=== PATIENT | male | born 1975 | race Caucasian/White ===

== ENCOUNTER → 2016-08-28 | Outpatient (CLI) | payer OTHER ==
[~2016-08-28] MED LIST: /ESOM40CA OR; BONINE OR; BUPR15TA OR; CIPR25SS OR; DICY10CA2 OR; DUCOSATE OR; FIBER CON OR; FLAG500T OR; HYOS0.1264 OR; LOTEPREDNOL OU; MECL25TA2 OR; MULTLIQ7 OR; NAPR500T81 OR; NEUR100C OR; OMEGA-3 FISH OIL OR; SIMVASTATIN PO; WELLBUTRIN OR; XANA0.5T OR; loperamide OR
== END ==
LOC: M SMT 09:24
PROVIDERS: ATTEND Internal Medicine Endocrinology, Diabetes & Metabolism
DX: E29.1 Testicular hypofunction (principal); E55.9 Vitamin D deficiency, unspecified

== ENCOUNTER → 2016-08-28 | Outpatient (CLI) | payer OTHER | LOC: M SMT 09:21 | PROVIDERS: ATTEND Physician Assistant Medical | DX: E55.9 Vitamin D deficiency, unspecified (principal) ==

== ENCOUNTER → 2016-12-29 | Outpatient (CLI) | payer OTHER ==
--- NOTE | 2017-01-19 00:56 | ECWPNPC ---
PATIENT NAME: ROSHNI PRECIADO : 1975 GENDER: MALE VISIT DATE: 12/29/2016 DISCHARGE DATE: 12/29/16 1156 VISIT LOCKED DATE TIME: PHYSICIAN: LALIT RECIO RESOURCE: LALIT RECIO REASON FOR APPOINTMENT 1. NECK/BACK HISTORY OF PRESENT ILLNESS HISTORY OF PRESENT ILLNESS: THIS IS A 4 WEEK F/U AFTER INITIAL EVALUATION FOR CHRONIC GENERALIZED BODY PAIN.STARTED CYMBALTA 30MG DAILY AT INITIAL VISIT.PATIENT HAD TO STOP DUE TO SIDE EFFECT OF NAUSEA.USING TRAMADOL AND BACLOFEN AND FINDS THESE MEDICATIONS HELPFUL WITHOUT SIDE EFFECTS.RATING PAIN VAS 4/10.DESCRIBES PAIN INTERMITTENT ACHING AND SHARP PAIN.PAIN IS AGGREVATED BY INCREASED ACTIVITY AND RELIEVED SOMEWHAT AT REST. PAIN THE PATIENT DESCRIBES THE PAIN... FALL RISK SCREENING: SCREENING :NO FALLS IN THE PAST YEAR CURRENT MEDICATIONS TAKING ZOMIG ZMT 5 MG TABLET DISPERSIBLE DIRECTED ORALLY TAKING MAGNESIUM OXIDE 400 MG CAPSULE ORALLY DAILY TAKING BACLOFEN 10 MG TABLET 1 TABLET WITH FOOD OR MILK ORALLY THREE TIMES A DAY TAKING ALBUTEROL SULFATE HFA 108 (90 BASE) MCG/ACT AEROSOL SOLUTION 2 PUFFS NEEDED INHALATION EVERY 4 HRS TAKING CARAFATE 1 GM TABLET 1 TABLET ORALLY FOUR TIMES DAILY TAKING CETIRIZINE HCL 10 MG TABLET 1 TABLET ORALLY ONCE A DAY TAKING CLONAZEPAM 0.5 MG TABLET 1 TABLET AT BEDTIME ORALLY ONLY NEEDED TAKING FIBER LAXATIVE 625 MG TABLET 1 TABLET NEEDED ORALLY FOUR TIMES A DAY TAKING DOCUSATE SODIUM 100 MG CAPSULE 1 CAPSULE NEEDED ORALLY ONCE A DAY TAKING EXCEDRIN TENSION HEADACHE 500-65 MG TABLET DIRECTED ORALLY TAKING HYOSCYAMINE SULFATE 0.125 MG TABLET 1 TABLET BEFORE MEALS NEEDED ORALLY EVERY 4 HRS TAKING LIDODERM 5 % PATCH 1 PATCH TO INTACT SKIN REMOVE AFTER 12 HOURS EXTERNALLY ONCE A DAY TAKING LOVAZA 1 GM CAPSULE 2 CAPSULES ORALLY TWICE A DAY TAKING MECLIZINE HCL 25 MG TABLET 1 TABLET NEEDED ORALLY ONCE A DAY TAKING MULTI COMPLETE CAPSULE DIRECTED ORALLY TAKING NEXIUM 40 MG CAPSULE DELAYED RELEASE 1 CAPSULE ORALLY BID TAKING PATANASE 0.6 % SOLUTION 2 SPRAYS NASALLY TWICE A DAY TAKING VITAMIN D3 6000 MG CAPSULE 1 TABLET ORALLY ONCE A DAY TAKING CPAP MACHINE DIRECTED TAKING GENTEAL 0.3 % SOLUTION 1 DROP INTO AFFECTED EYE NEEDED OPHTHALMIC ONCE A DAY TAKING RITALIN 20MG TABLET 1 TABLET ORALLY THREE TIMES DAILY TAKING RIBOFLAVIN 100 MG TABLET 2 TABLET WITH A MEAL ORALLY TWICE DAILY TAKING SIMVASTATIN 20 20MG TABLET DIRECTED ORAL TAKING NEEDLE (DISP) 22G X 1-1/2 MISCELLANEOUS DIRECTED IM DIRECTED Q 2 WEEKS TAKING VITAMIN D (ERGOCALCIFEROL) 05190 UNIT CAPSULE 1 CAPSULE ORALLY TAKING REQUIP 1 MG TABLET 1 TABLET ORALLY TWICE A DAY TAKING METOPROLOL SUCCINATE 50 MG TABLET EXTENDED RELEASE ORALLY DAILY TAKING FENOFIBRATE 54 MG TABLET 1 TABLET WITH A MEAL ORALLY ONCE A DAY TAKING CUSTOM DO NOT USE TRAMADOL 50 MG TABLET ONE TAB ORALLY EVERY 4-6 HOURS PRN PAIN TAKING ROPINIROLE HCL 1 MG TABLET 1 TABLET 1 TO 3 HOURS BEFORE BEDTIME ORALLY ONCE A DAY TAKING ANDROGEL PUMP 12.5 MG/ACT (1%) GEL TRANSDERMAL TAKING PROBIOTIC - CAPSULE ORALLY DAILY TAKING HYDROXYZINE PAMOATE 25 MG CAPSULE 1 CAPSULE NEEDED ORALLY BID TAKING CIALIS 5MG TABLET TAKE 1 TABLET DAILY NOT-TAKING CYMBALTA 30 MG CAPSULE DELAYED RELEASE PARTICLES 1 CAPSULE ORALLY DAILY NOT-TAKING LOPERAMIDE HCL 2 MG CAPSULE 1 CAPSULE ORALLY 8 TIME(S) A DAY NOT-TAKING NITRO-BID 2 % OINTMENT DIRECTED TRANSDERMAL NOT-TAKING HYDROCODONE-ACETAMINOPHEN 5-325 MG TABLET 1 TABLET NEEDED ORALLY EVERY 6 HRS NOT-TAKING MELOXICAM 15 MG TABLET 1 TABLET ORALLY ONCE A DAY NOT-TAKING PAROXETINE HCL 40 MG TABLET 1 TABLET IN THE MORNING ORALLY ONCE A DAY NOT-TAKING TRAMADOL HCL 50 MG TABLET 1 TABLET NEEDED ORALLY EVERY 6 HRS MEDICATION LIST REVIEWED AND RECONCILED WITH THE PATIENT PAST MEDICAL HISTORY PTSD ALLERGIC RHINITIS ANXIETY ASTHMA 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 FLAT FOOT INSOMNIA 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 YES, PT STATES HE STARTED CYMBALTA, HAD N/V/D. PT STOPPED CYMBALTA . CHILLS NO . FEVER NO . INFECTION: DO YOU HAVE NEW INFECTIONS? NO . DO YOU HAVE HISTORY OF MRSA? NO . MUSCULOSKELETAL: ANY NEW PATTERNS OF PAIN OR NUMBNESS? NO . GASTROENTEROLOGY: ANY NEW CHANGE IN BOWEL CONTROL? YES, PT STATES HE HAS IBS, HAD DIARRHEA WHEN TAKING CYMBALTA. . GENITOURINARY: ANY NEW CHANGE IN BLADDER CONTROL? NO . IS THERE A CHANCE YOU COULD BE ? NO . HEMATOLOGY/LYMPH: DO YOU TAKE ANY BLOOD THINNERS? (FOR EXAMPLE- COUMADIN, PLAVIX, AGGRENOX, PLATEL, PRADAXA, OR XARELTO) NO . WHEN WAS YOUR LAST DOSE? DATE: TIME: . NEUROLOGY: HAVE YOU FALLEN IN THE PAST 6 MONTHS? NO . ANY NEW EXTREMITY NUMBNESS OR WEAKNESS? NO . CARDIOLOGY: DO YOU HAVE A PACEMAKER OR DEFIBRILLATOR? NO . RESPIRATORY: HAVE YOU BEEN SICK IN THE PAST WEEK? NO . FEVER NO . FLU LIKE SYMPTOMS? NO . COUGH NO . INTEGUMENTARY: DO YOU HAVE ANY RASHES OR OPEN SORES? NO . ALLERGIC/IMMUNO: ARE YOU ALLERGIC TO SHELLFISH OR IV DYE? NO . ANY NEW ALLERGIES? NO . PSYCHIATRIC: DO YOU HAVE THOUGHTS OF HURTING YOURSELF OR SOMEONE ELSE? NO . ARE YOU ABUSED, NEGLECTED, OR IN AN UNSAFE ENVIRONMENT? NO . ENDOCRINOLOGY: ARE YOU DIABETIC? NO . OTHER: DO YOU NEED ANY PRESCRIPTIONS? YES, TALK ABOUT N/V/D ON CYMBALTA. CONSIDER ANOTHER REGIMEN? . IF YES, PLEASE LIST: ____ . ANY NEW PROBLEMS WITH YOUR MEDICATIONS? NO . WHEN DID YOU LAST EAT? ____ . WHEN DID YOU LAST DRINK? ____ . WHAT DID YOU LAST DRINK? ____ . NAME OF PERSON DRIVING YOU HOME? ____ . DO YOU HAVE ANY OTHER QUESTIONS OR CONCERNS NO . REVIEWED BY: PROVIDER: LALIT HENDRICKS . VITAL SIGNS WT 200 LBS, HT 5'5'', BMI 33.28 INDEX, BP 117/79 MM HG, HR 80 /MIN, RR 16 /MIN, TEMP 97.6 F, OXYGEN SAT % 97%, SAFE IN ENV? (Y/N) Y, NA INITIALS LA 11:24, REVIEWED BY: EM. EXAMINATION GENERAL EXAMINATION: HEENT:HEAD:, NORMOCEPHALIC, EYES:, EYES NORMAL, NOSE:, NOSE CLEAR, THROAT: NORMAL. LUNGS:LUNG SOUNDS ARE CLEAR. HEART:HEART RATE REGULAR. ABDOMEN:SOFT AND NOT TENDER, NON-DISTENDED. MUSCULOSKELETAL:*. LUMBAR SACRAL SPINEMUSCLE STRENGTH TESTING 5/5 BILATERAL, PALPATION: NEGATIVE FOR PAIN OVER L/S SPINE. NEGATIVE FOR PAIN OVER L/S PARSPINALS. THORACIC SPINENEGATIVE FOR PAIN WITH PALPATION OF THORACIC SPINE. NEGATIVE FOR PAIN WITH PALPATION OF THORACIC PARASPINAL. CERVICALNEGATIVE FOR PAIN WITH PALPATION OF CERVICAL SPINE. NEGATIVE FOR PAIN WITH PALPATION OF CERVICAL PARASPINALS. NEGATIVE FOR PAIN WITH PALPATION OF TRAPEZIUS BILAT. SKIN:NORMAL, NO RASH. NEUROLOGIC EXAM:ALERT AND ORIENTED X 3, DTRS 1-2+ IN ALL 4 EXTREMITIES, DENIES UPPER EXTREMETIES SENSORY LOSS, DENIES LOWER EXTREMETIES SENSORY LOSS. DIAGNOSTIC: . ASSESSMENTS ARTHROPATHY - M12.9 (PRIMARY) MYALGIA - M79.1 CERVICALGIA - M54.2 TREATMENT ARTHROPATHY REFILL TRAMADOL HCL TABLET, 50 MG, 1 TABLET NEEDED, ORALLY, Q8H PRN MDD3, 30 DAY(S), 90, REFILLS 2 PROCEDURE CODES FA211 ESTABILISHED PATIENT [facility] CHARGE DISPOSITION & COMMUNICATION FOLLOW UP 6 WEEKS ELECTRONICALLY SIGNED BY RUTHIE MEREDITH ON 01/18/2017 AT 08:48 AM EDT DISCLAIMER : THIS IS A VISIT SUMMARY EXTRACTED FROM THE [employer] CHART. IT IS NOT A COPY OF THE [employer] PROGRESS NOTE. DAYANA
== END ==
LOC: M PAIN 10:40
PROVIDERS: ATTEND Nurse Practitioner Family
DX: M12.9 Arthropathy, unspecified (principal); M79.1 Myalgia; M54.2 Cervicalgia; G89.29 Other chronic pain; Z79.899 Other long term (current) drug therapy; Z91.030 Bee allergy status

== ENCOUNTER → 2017-03-07 | Outpatient (CLI) | payer OTHER | LOC: M SMT 09:04 | PROVIDERS: ATTEND Internal Medicine Endocrinology, Diabetes & Metabolism | DX: E29.1 Testicular hypofunction (principal) ==

== ENCOUNTER → 2017-03-07 | Outpatient (CLI) | payer OTHER | LOC: M SMT 09:06 | PROVIDERS: ATTEND Physician Assistant Medical | DX: E55.9 Vitamin D deficiency, unspecified (principal) ==

== ENCOUNTER → 2017-04-30 | Outpatient (CLI) | payer OTHER ==
--- NOTE | 2017-04-30 23:49 | ECWPNPC ---
PATIENT NAME: ROSHNI PRECIADO : 1975 GENDER: MALE VISIT DATE: 04/30/2017 DISCHARGE DATE: 04/30/17 1058 VISIT LOCKED DATE TIME: PHYSICIAN: LALIT RECIO RESOURCE: LALIT RECIO REASON FOR APPOINTMENT 1. MEDS HISTORY OF PRESENT ILLNESS HISTORY OF PRESENT ILLNESS: THIS IS A 4 WEEK F/U AFTER INITIAL EVALUATION FOR CHRONIC GENERALIZED BODY PAIN.STARTED CYMBALTA 30MG DAILY AT INITIAL VISIT.PATIENT HAD TO STOP DUE TO SIDE EFFECT OF NAUSEA.USING TRAMADOL AND BACLOFEN AND FINDS THESE MEDICATIONS HELPFUL WITHOUT SIDE EFFECTS.RATING PAIN VAS 3/10.DESCRIBES PAIN INTERMITTENT ACHING AND SHARP PAIN.PAIN IS AGGREVATED BY INCREASED ACTIVITY AND RELIEVED SOMEWHAT AT REST. PAIN THE PATIENT DESCRIBES THE PAIN... THE PATIENT DESCRIBES THE PAIN... FALL RISK SCREENING: SCREENING :NO FALLS IN THE PAST YEAR CURRENT MEDICATIONS TAKING ZOMIG ZMT 5 MG TABLET DISPERSIBLE DIRECTED ORALLY TAKING MAGNESIUM OXIDE 400 MG CAPSULE ORALLY DAILY TAKING BACLOFEN 10 MG TABLET 1 TABLET WITH FOOD OR MILK ORALLY THREE TIMES A DAY TAKING ALBUTEROL SULFATE HFA 108 (90 BASE) MCG/ACT AEROSOL SOLUTION 2 PUFFS NEEDED INHALATION EVERY 4 HRS TAKING CARAFATE 1 GM TABLET 1 TABLET ORALLY FOUR TIMES DAILY TAKING CETIRIZINE HCL 10 MG TABLET 1 TABLET ORALLY ONCE A DAY TAKING CLONAZEPAM 0.5 MG TABLET 1 TABLET AT BEDTIME ORALLY ONLY NEEDED TAKING FIBER LAXATIVE 625 MG TABLET 1 TABLET NEEDED ORALLY FOUR TIMES A DAY TAKING DOCUSATE SODIUM 100 MG CAPSULE 1 CAPSULE NEEDED ORALLY ONCE A DAY TAKING EXCEDRIN TENSION HEADACHE 500-65 MG TABLET DIRECTED ORALLY TAKING HYOSCYAMINE SULFATE 0.125 MG TABLET 1 TABLET BEFORE MEALS NEEDED ORALLY EVERY 4 HRS TAKING LIDODERM 5 % PATCH 1 PATCH TO INTACT SKIN REMOVE AFTER 12 HOURS EXTERNALLY ONCE A DAY TAKING LOVAZA 1 GM CAPSULE 2 CAPSULES ORALLY TWICE A DAY TAKING MECLIZINE HCL 25 MG TABLET 1 TABLET NEEDED ORALLY ONCE A DAY TAKING MULTI COMPLETE CAPSULE DIRECTED ORALLY TAKING NEXIUM 40 MG CAPSULE DELAYED RELEASE 1 CAPSULE ORALLY BID TAKING PATANASE 0.6 % SOLUTION 2 SPRAYS NASALLY TWICE A DAY TAKING VITAMIN D3 6000 MG CAPSULE 1 TABLET ORALLY ONCE A DAY TAKING CPAP MACHINE DIRECTED TAKING GENTEAL 0.3 % SOLUTION 1 DROP INTO AFFECTED EYE NEEDED OPHTHALMIC ONCE A DAY TAKING RITALIN 20MG TABLET 1 TABLET ORALLY THREE TIMES DAILY TAKING RIBOFLAVIN 100 MG TABLET 2 TABLET WITH A MEAL ORALLY TWICE DAILY TAKING SIMVASTATIN 20 20MG TABLET DIRECTED ORAL TAKING VITAMIN D (ERGOCALCIFEROL) 55506 UNIT CAPSULE 1 CAPSULE ORALLY TAKING REQUIP 1 MG TABLET 1 TABLET ORALLY TWICE A DAY TAKING METOPROLOL SUCCINATE 50 MG TABLET EXTENDED RELEASE ORALLY DAILY TAKING FENOFIBRATE 54 MG TABLET 1 TABLET WITH A MEAL ORALLY ONCE A DAY TAKING CUSTOM DO NOT USE TRAMADOL 50 MG TABLET ONE TAB ORALLY EVERY 4-6 HOURS PRN PAIN TAKING ROPINIROLE HCL 1 MG TABLET 1 TABLET 1 TO 3 HOURS BEFORE BEDTIME ORALLY ONCE A DAY TAKING ANDROGEL PUMP 12.5 MG/ACT (1%) GEL TRANSDERMAL TAKING PROBIOTIC - CAPSULE ORALLY DAILY TAKING HYDROXYZINE PAMOATE 25 MG CAPSULE 1 CAPSULE NEEDED ORALLY BID TAKING CIALIS 5MG TABLET TAKE 1 TABLET DAILY TAKING TRAMADOL HCL 50 MG TABLET 1 TABLET NEEDED ORALLY Q8H PRN MDD3 DISCONTINUED NEEDLE (DISP) 22G X 1-1/2 MISCELLANEOUS DIRECTED IM DIRECTED Q 2 WEEKS UNKNOWN CYMBALTA 30 MG CAPSULE DELAYED RELEASE PARTICLES 1 CAPSULE ORALLY DAILY UNKNOWN LOPERAMIDE HCL 2 MG CAPSULE 1 CAPSULE ORALLY 8 TIME(S) A DAY UNKNOWN NITRO-BID 2 % OINTMENT DIRECTED TRANSDERMAL UNKNOWN HYDROCODONE-ACETAMINOPHEN 5-325 MG TABLET 1 TABLET NEEDED ORALLY EVERY 6 HRS UNKNOWN MELOXICAM 15 MG TABLET 1 TABLET ORALLY ONCE A DAY UNKNOWN PAROXETINE HCL 40 MG TABLET 1 TABLET IN THE MORNING ORALLY ONCE A DAY MEDICATION LIST REVIEWED AND RECONCILED WITH THE PATIENT PAST MEDICAL HISTORY PTSD ALLERGIC RHINITIS ANXIETY ASTHMA 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 FLAT FOOT INSOMNIA 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 RECREATIONAL DRUG USE DENIES. CAFFEINE 1-2/DAY. SEXUAL HX HAD SEX IN THE LAST 12 MONTHS (VAGINAL, ORAL, OR ANAL)?: YES, WITH: WOMEN ONLY, USE PROTECTION?: YES, HOW OFTEN?: ALL OF THE TIME, HAVE YOU EVER HAD AN STD?: NO. DIET: REGULAR. EXERCISE: DAILY. MARITAL STATUS: . OTHERS AT HOME: VISITATION WITH CHILDREN. DRUZE NO RESTORATIONIST BELIEFS THAT WOULD IMPACT HEALTH CARE. LANGUAGE ISRAELI. LEARNING BARRIERS / SPECIAL NEEDS CHANGE FROM LAST VISIT?NO PAIN CLINIC PFS, CLERGY, PUBLIC HEALTH REFERRALS HAS THE PATIENT BEEN EDUCATED REGARDING HIS/HER PLAN OF CARE?YES HAS THE PATIENT BEEN EDUCATED REGARDING PAIN, THE RISK FOR PAIN, THE IMPORTANCE OF EFFECTIVE PAIN MANAGEMENT, AND THE PAIN ASSESSMENT PROCESS?YES TRAVEL OUTSIDE US: DENIES. DOMESTIC VIOLENCE NONE. HOSPITALIZATION/MAJOR DIAGNOSTIC PROCEDURE CHOLITIS 04/2011 REVIEW OF SYSTEMS REVIEWED BY: PROVIDER: LALIT HENDRICKS . CONSTITUTIONAL: ANY CHANGE IN YOUR MEDICAL CONDITION? NO . CHILLS NO . FEVER NO . INFECTION: DO YOU HAVE NEW INFECTIONS? NO . DO YOU HAVE HISTORY OF MRSA? NO . MUSCULOSKELETAL: ANY NEW PATTERNS OF PAIN OR NUMBNESS? NO . GASTROENTEROLOGY: ANY NEW CHANGE IN BOWEL CONTROL? NO . GENITOURINARY: ANY NEW CHANGE IN BLADDER CONTROL? NO . IS THERE A CHANCE YOU COULD BE ? NO . HEMATOLOGY/LYMPH: DO YOU TAKE ANY BLOOD THINNERS? (FOR EXAMPLE- COUMADIN, PLAVIX, AGGRENOX, PLATEL, PRADAXA, OR XARELTO) NO . WHEN WAS YOUR LAST DOSE? DATE: TIME: . NEUROLOGY: HAVE YOU FALLEN IN THE PAST 6 MONTHS? NO . ANY NEW EXTREMITY NUMBNESS OR WEAKNESS? NO . CARDIOLOGY: DO YOU HAVE A PACEMAKER OR DEFIBRILLATOR? NO . RESPIRATORY: HAVE YOU BEEN SICK IN THE PAST WEEK? NO . FEVER NO . FLU LIKE SYMPTOMS? NO . COUGH NO . INTEGUMENTARY: DO YOU HAVE ANY RASHES OR OPEN SORES? NO . ALLERGIC/IMMUNO: ARE YOU ALLERGIC TO SHELLFISH OR IV DYE? NO . ANY NEW ALLERGIES? NO . PSYCHIATRIC: DO YOU HAVE THOUGHTS OF HURTING YOURSELF OR SOMEONE ELSE? NO . ARE YOU ABUSED, NEGLECTED, OR IN AN UNSAFE ENVIRONMENT? NO . ENDOCRINOLOGY: ARE YOU DIABETIC? NO . OTHER: DO YOU NEED ANY PRESCRIPTIONS? NO . IF YES, PLEASE LIST: ____ . ANY NEW PROBLEMS WITH YOUR MEDICATIONS? NO . WHEN DID YOU LAST EAT? ____ . WHEN DID YOU LAST DRINK? ____ . WHAT DID YOU LAST DRINK? ____ . NAME OF PERSON DRIVING YOU HOME? ____ . DO YOU HAVE ANY OTHER QUESTIONS OR CONCERNS NO . VITAL SIGNS WT 190.2 LBS, HT 5'5'', BMI 31.65 INDEX, BP 123/78 MM HG, HR 58 /MIN, RR 18 /MIN, TEMP 97.2 F, OXYGEN SAT % 99%, NA INITIALS SC 10:32, REVIEWED BY: OSKAR. EXAMINATION GENERAL EXAMINATION: HEENT:HEAD:, NORMOCEPHALIC, EYES:, EYES NORMAL, NOSE:, NOSE CLEAR, THROAT: NORMAL. LUNGS:LUNG SOUNDS ARE CLEAR. HEART:HEART RATE REGULAR. ABDOMEN:SOFT AND NOT TENDER, NON-DISTENDED. MUSCULOSKELETAL:*. LUMBAR SACRAL SPINEMUSCLE STRENGTH TESTING 5/5 BILATERAL, PALPATION: NEGATIVE FOR PAIN OVER L/S SPINE. NEGATIVE FOR PAIN OVER L/S PARSPINALS. THORACIC SPINENEGATIVE FOR PAIN WITH PALPATION OF THORACIC SPINE. NEGATIVE FOR PAIN WITH PALPATION OF THORACIC PARASPINAL. CERVICALNEGATIVE FOR PAIN WITH PALPATION OF CERVICAL SPINE. NEGATIVE FOR PAIN WITH PALPATION OF CERVICAL PARASPINALS. NEGATIVE FOR PAIN WITH PALPATION OF TRAPEZIUS BILAT. SKIN:NORMAL, NO RASH. NEUROLOGIC EXAM:ALERT AND ORIENTED X 3, DTRS 1-2+ IN ALL 4 EXTREMITIES, DENIES UPPER EXTREMETIES SENSORY LOSS, DENIES LOWER EXTREMETIES SENSORY LOSS. DIAGNOSTIC: . ASSESSMENTS ARTHROPATHY - M12.9 (PRIMARY) MYALGIA - M79.1 CERVICALGIA - M54.2 TREATMENT ARTHROPATHY REFILL BACLOFEN TABLET, 10 MG, 1 TABLET WITH FOOD OR MILK, ORALLY, THREE TIMES A DAY, 30 DAY(S), 90, REFILLS 2 REFILL TRAMADOL HCL TABLET, 50 MG, 1 TABLET NEEDED, ORALLY, Q8H PRN MDD3, 30 DAY(S), 90, REFILLS 2 PROCEDURE CODES FA211 ESTABILISHED PATIENT [facility] CHARGE DISPOSITION & COMMUNICATION FOLLOW UP 3 MONTHS ELECTRONICALLY SIGNED BY RUTHIE MEREDITH ON 04/30/2017 AT 11:22 AM EDT DISCLAIMER : THIS IS A VISIT SUMMARY EXTRACTED FROM THE [employer] CHART. IT IS NOT A COPY OF THE [employer] PROGRESS NOTE. DAYANA
== END ==
LOC: M PAIN 10:00
PROVIDERS: ATTEND Nurse Practitioner Family
DX: M12.9 Arthropathy, unspecified (principal); M79.1 Myalgia; M54.2 Cervicalgia; Z79.891 Long term (current) use of opiate analgesic; Z79.899 Other long term (current) drug therapy; Z91.030 Bee allergy status

== ENCOUNTER → 2017-07-31 | Outpatient (CLI) | payer OTHER | LOC: M PAIN 09:00 | DX: G89.29 Other chronic pain (principal); M12.9 Arthropathy, unspecified; M54.2 Cervicalgia; M79.1 Myalgia; F43.10 Post-traumatic stress disorder, unspecified; J45.909 Unspecified asthma, uncomplicated; H81.10 Benign paroxysmal vertigo, unspecified ear; G47.00 Insomnia, unspecified; F32.9 Major depressive disorder, single episode, unspecified; F41.0 Panic disorder [episodic paroxysmal anxiety]; G43.909 Migraine, unspecified, not intractable, without status migrainosus; G47.30 Sleep apnea, unspecified; E78.5 Hyperlipidemia, unspecified; E55.9 Vitamin D deficiency, unspecified; G25.81 Restless legs syndrome; Z91.030 Bee allergy status; Z79.1 Long term (current) use of non-steroidal anti-inflammatories (NSAID); Z79.899 Other long term (current) drug therapy | CPT/HCPCS: G0463 ==

== ENCOUNTER → 2017-10-29 | Outpatient (CLI) | payer OTHER | LOC: M PAIN 10:15 | DX: M12.9 Arthropathy, unspecified (principal); M79.1 Myalgia; M54.2 Cervicalgia; G89.29 Other chronic pain; F43.10 Post-traumatic stress disorder, unspecified; J45.909 Unspecified asthma, uncomplicated; F41.9 Anxiety disorder, unspecified; H81.10 Benign paroxysmal vertigo, unspecified ear; G47.00 Insomnia, unspecified; F32.9 Major depressive disorder, single episode, unspecified; G43.909 Migraine, unspecified, not intractable, without status migrainosus; G47.30 Sleep apnea, unspecified; E78.5 Hyperlipidemia, unspecified; G25.81 Restless legs syndrome; Z79.899 Other long term (current) drug therapy; Z91.030 Bee allergy status; Z87.820 Personal history of traumatic brain injury | CPT/HCPCS: G0463 ==

== ENCOUNTER → 2018-01-04 | Outpatient (CLI) | payer OTHER | LOC: M PAIN 11:30 | DX: M12.9 Arthropathy, unspecified (principal); M79.1 Myalgia; M54.2 Cervicalgia; F43.10 Post-traumatic stress disorder, unspecified; J45.909 Unspecified asthma, uncomplicated; F41.0 Panic disorder [episodic paroxysmal anxiety]; H81.10 Benign paroxysmal vertigo, unspecified ear; G47.00 Insomnia, unspecified; F32.9 Major depressive disorder, single episode, unspecified; G43.909 Migraine, unspecified, not intractable, without status migrainosus; G47.30 Sleep apnea, unspecified; E78.5 Hyperlipidemia, unspecified; E55.9 Vitamin D deficiency, unspecified; G25.81 Restless legs syndrome; Z79.82 Long term (current) use of aspirin; Z79.899 Other long term (current) drug therapy; Z91.030 Bee allergy status; Z87.820 Personal history of traumatic brain injury | CPT/HCPCS: G0463 ==

== ENCOUNTER → 2018-03-06 | Outpatient (CLI) | payer OTHER | LOC: M PAIN 13:00 | DX: M12.9 Arthropathy, unspecified (principal); J45.909 Unspecified asthma, uncomplicated; G43.909 Migraine, unspecified, not intractable, without status migrainosus; K58.9 Irritable bowel syndrome, unspecified; R00.2 Palpitations; G25.81 Restless legs syndrome; Z79.891 Long term (current) use of opiate analgesic; Z79.899 Other long term (current) drug therapy; Z91.030 Bee allergy status | CPT/HCPCS: G0463 ==

== ENCOUNTER → 2018-04-17 | Outpatient (CLI) | payer OTHER | LOC: M PAIN 11:00 | DX: M12.9 Arthropathy, unspecified (principal); M54.2 Cervicalgia; M79.7 Fibromyalgia; F32.9 Major depressive disorder, single episode, unspecified; E78.5 Hyperlipidemia, unspecified; F41.9 Anxiety disorder, unspecified; G25.81 Restless legs syndrome; N52.9 Male erectile dysfunction, unspecified; Z79.82 Long term (current) use of aspirin; Z79.891 Long term (current) use of opiate analgesic; Z79.899 Other long term (current) drug therapy; Z91.030 Bee allergy status | CPT/HCPCS: G0463 ==

== ENCOUNTER → 2018-06-17 | Outpatient (CLI) | payer OTHER | LOC: M PAIN 11:00 | DX: M12.9 Arthropathy, unspecified (principal); M54.2 Cervicalgia; M79.7 Fibromyalgia; F43.10 Post-traumatic stress disorder, unspecified; J45.909 Unspecified asthma, uncomplicated; F41.9 Anxiety disorder, unspecified; H81.10 Benign paroxysmal vertigo, unspecified ear; H04.129 Dry eye syndrome of unspecified lacrimal gland; G47.00 Insomnia, unspecified; M21.40 Flat foot [pes planus] (acquired), unspecified foot; E29.1 Testicular hypofunction; K64.9 Unspecified hemorrhoids; F32.9 Major depressive disorder, single episode, unspecified; M50.30 Other cervical disc degeneration, unspecified cervical region; K58.9 Irritable bowel syndrome, unspecified; F41.0 Panic disorder [episodic paroxysmal anxiety]; G43.909 Migraine, unspecified, not intractable, without status migrainosus; G47.30 Sleep apnea, unspecified; E78.5 Hyperlipidemia, unspecified; E55.9 Vitamin D deficiency, unspecified; G25.81 Restless legs syndrome; N52.9 Male erectile dysfunction, unspecified; Z79.891 Long term (current) use of opiate analgesic; Z79.899 Other long term (current) drug therapy; Z91.030 Bee allergy status | CPT/HCPCS: G0463 ==

== ENCOUNTER → 2018-09-17 | Outpatient (CLI) | payer OTHER ==
[~2018-09-17] MED LIST changes: +BACL10TA2; +CETI10TA PO; +CIAL5TAB; +DICY10CA13; +DOCU100T8 PO; +ESOM40CA35; +FENO54TA2; +HYDR1CAP25 PO; +LIDO5DIS41 TOP; +MAGN400C2 PO; +MECL-86 PO; +META1TAB22; +METH20TA29; +METO1TAB7; +OXYB5TAB10; +PROAAER10; +PROB250C PO; +RANO5TAB; +RIBO400T PO; +ROPI1TAB; +SUCR1SS; +TRAM50TA2; +VITA30004 PO; +VITA50005; +ZOLM5TAB2; +ZONI50CA3
--- NOTE | 2018-10-02 01:53 | ECWPNPC ---
PATIENT NAME: ROSHNI PRECIADO : 1975 GENDER: MALE VISIT DATE: 09/17/2018 DISCHARGE DATE: 09/17/18 1207 VISIT LOCKED DATE TIME: PHYSICIAN: LALIT RECIO RESOURCE: LALIT RECIO REASON FOR APPOINTMENT 1. 3 MONTHS HISTORY OF PRESENT ILLNESS HISTORY OF PRESENT ILLNESS: HERE FOR F/U OF GENERALIZED JOINT PAIN.USING TRAMADOL 50MG UP TO 3 -4 PILLS PER DAY WITH SOME IMPROVEMENT .DENIES SIDE EFFECTS .RATING PAIN VAS 2-5/10.PAIN IS CONTINUOUS AND DESCRIBED ACHING AND SHARP.STATES OCCASIONAL NIGHTTIME AWAKENINGS DUE TO PAIN.PAIN IS AGGREVATED BY INCREASE IN PHYSICAL ACTIVITY. PAIN THE PATIENT DESCRIBES THE PAIN... THE PATIENT DESCRIBES THE PAIN... THE PATIENT DESCRIBES THE PAIN... THE PATIENT DESCRIBES THE PAIN... THE PATIENT DESCRIBES THE PAIN... FALL RISK SCREENING: SCREENING : NO FALLS IN THE PAST YEAR. CURRENT MEDICATIONS TAKING MAGNESIUM OXIDE 400 MG CAPSULE ORALLY DAILY TAKING CARAFATE 1 GM TABLET 1 TABLET ORALLY FOUR TIMES DAILY TAKING CETIRIZINE HCL 10 MG TABLET 1 TABLET ORALLY ONCE A DAY TAKING DOCUSATE SODIUM 100 MG CAPSULE 1 CAPSULE NEEDED ORALLY ONCE A DAY TAKING EXCEDRIN TENSION HEADACHE 500-65 MG TABLET DIRECTED ORALLY TAKING LIDODERM 5 % PATCH 1 PATCH TO INTACT SKIN REMOVE AFTER 12 HOURS EXTERNALLY ONCE A DAY TAKING MECLIZINE HCL 25 MG TABLET 1 TABLET NEEDED ORALLY ONCE A DAY TAKING MULTI COMPLETE CAPSULE DIRECTED ORALLY TAKING NEXIUM 40 MG CAPSULE DELAYED RELEASE 1 CAPSULE ORALLY BID TAKING PATANASE 0.6 % SOLUTION 2 SPRAYS NASALLY TWICE A DAY TAKING VITAMIN D3 3000 UNIT TABLET 1 TABLET ORALLY ONCE A DAY TAKING GENTEAL 0.3 % SOLUTION 1 DROP INTO AFFECTED EYE NEEDED OPHTHALMIC ONCE A DAY TAKING RIBOFLAVIN 100 MG TABLET 2 TABLET WITH A MEAL ORALLY TWICE DAILY TAKING SIMVASTATIN 20 20MG TABLET DIRECTED ORAL DAILY TAKING VITAMIN D (ERGOCALCIFEROL) 44091 UNIT CAPSULE 1 CAPSULE ORALLY WEEKLY TAKING METOPROLOL SUCCINATE 50 MG TABLET EXTENDED RELEASE ORALLY DAILY TAKING FENOFIBRATE 54 MG TABLET 1 TABLET WITH A MEAL ORALLY ONCE A DAY TAKING ROPINIROLE HCL 1 MG TABLET 1 TAB ORALLY BID TAKING PROBIOTIC - CAPSULE ORALLY DAILY TAKING HYDROXYZINE PAMOATE 25 MG CAPSULE 1 CAPSULE NEEDED ORALLY BID TAKING RANEXA 500 MG TABLET EXTENDED RELEASE 12 HOUR 1 TABLET ORALLY TWICE A DAY TAKING DICYCLOMINE HCL 10 MG CAPSULE 1 CAP ORALLY THREE TIMES A DAY TAKING METHYLPHENIDATE HCL 5 MG TABLET 1 TABLET ON AN EMPTY STOMACH ORALLY TWICE A DAY TAKING ZONISAMIDE 25 MG CAPSULE 2 CAPSULES ORALLY TWICE A DAY TAKING FISH OIL 1000 MG CAPSULE 1 CAPSULE ORALLY ONCE A DAY TAKING ZOLMITRIPTAN 5 MG TABLET 1 TABLET NEEDED ONE TIME ORALLY ONCE A DAY TAKING ALBUTEROL SULFATE (2.5 MG/3ML) 0.083% NEBULIZATION SOLUTION 3 ML NEEDED INHALATION THREE TIMES A DAY TAKING CIALIS 5MG TABLET TAKE 1 TABLET DAILY TAKING EPINEPHRINE HCL (ANAPHYLAXIS) 1 MG/ML SOLUTION INJECTION TAKING BACLOFEN 10 MG TABLET 1 TABLET WITH FOOD OR MILK ORALLY THREE TIMES A DAY TAKING ZOMIG ZMT 5 MG TABLET DISPERSIBLE DIRECTED ORALLY TAKING CPAP MACHINE DIRECTED TAKING TRAMADOL HCL 50 MG TABLET 2 ORALLY Q8H PRN MDD6 #100 TAB SHOULD LAST 30 DAYS NOT-TAKING VESICARE 10 MG TABLET 1 TABLET ORALLY ONCE A DAY NOT-TAKING METAXALONE 800 MG TABLET 1 TABLET ORALLY THREE TIMES A DAY NOT-TAKING CLONAZEPAM 0.5 MG TABLET 1 TABLET AT BEDTIME ORALLY ONLY NEEDED NOT-TAKING RITALIN 20MG TABLET 1 TABLET ORALLY TWICE DAILY NOT-TAKING REQUIP 1 MG TABLET 1 1/2 TABLET ORALLY TWICE A DAY NOT-TAKING ANDROGEL PUMP 12.5 MG/ACT (1%) GEL TRANSDERMAL NOT-TAKING EXTRA STRENGTH ACETAMINOPHEN , NOTES: 500 MG TWICE A DAY NOT-TAKING ASPIRIN 81 81 MG TABLET CHEWABLE 1 TABLET ORALLY ONCE A DAY NOT-TAKING MELOXICAM 15 MG TABLET 1 TABLET ORALLY ONCE A DAY NOT-TAKING CEFDINIR 300 MG CAPSULE 1 CAPSULE ORALLY EVERY 12 HRS NOT-TAKING PREDNISONE 10 MG TABLET 1 TABLET ORALLY ONCE A DAY NOT-TAKING ALBUTEROL SULFATE HFA 108 (90 BASE) MCG/ACT AEROSOL SOLUTION 2 PUFFS NEEDED INHALATION EVERY 4 HRS NOT-TAKING FIBER LAXATIVE 625 MG TABLET 1 TABLET NEEDED ORALLY FOUR TIMES A DAY NOT-TAKING HYOSCYAMINE SULFATE 0.125 MG TABLET 1 TABLET BEFORE MEALS NEEDED ORALLY EVERY 4 HRS NOT-TAKING LOVAZA 1 GM CAPSULE 2 CAPSULES ORALLY TWICE A DAY NOT-TAKING CYMBALTA 30 MG CAPSULE DELAYED RELEASE PARTICLES 1 CAPSULE ORALLY DAILY NOT-TAKING LOPERAMIDE HCL 2 MG CAPSULE 1 CAPSULE ORALLY 8 TIME(S) A DAY NOT-TAKING NITRO-BID 2 % OINTMENT DIRECTED TRANSDERMAL NOT-TAKING HYDROCODONE-ACETAMINOPHEN 5-325 MG TABLET 1 TABLET NEEDED ORALLY EVERY 6 HRS NOT-TAKING PAROXETINE HCL 40 MG TABLET 1 TABLET IN THE MORNING ORALLY ONCE A DAY MEDICATION LIST REVIEWED AND RECONCILED WITH THE PATIENT PAST MEDICAL HISTORY PTSD ALLERGIC RHINITIS ANXIETY ASTHMA 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 FLAT FOOT INSOMNIA 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 4 SON(S) , 2 DAUGHTER(S) - HEALTHY. FATHER HAD CYSTS ON KIDNEY'S PRIOR TO . SOCIAL HISTORY GENERAL: TOBACCO USE ARE YOU A:NEVER SMOKER ALCOHOL SCREENING POINTS: 1, INTERPRETATION: NEGATIVE. RECREATIONAL DRUG USE DENIES. CAFFEINE 1-2/DAY. SEXUAL HX HAD SEX IN THE LAST 12 MONTHS (VAGINAL, ORAL, OR ANAL)?: YES, WITH: WOMEN ONLY, USE PROTECTION?: YES, HOW OFTEN?: ALL OF THE TIME, HAVE YOU EVER HAD AN STD?: NO. BUDDHISM NO ORTHODOXY BELIEFS THAT WOULD IMPACT HEALTH CARE. LANGUAGE KHMER. EDUCATION LEVEL OF EDUCATION:NOT FINISHED COLLEGE LEARNING BARRIERS / SPECIAL NEEDS CHANGE FROM LAST VISIT?NO DOMESTIC VIOLENCE NONE. DIET: REGULAR. EXERCISE: DAILY. MARITAL STATUS: . OTHERS AT HOME: VISITATION WITH CHILDREN. PAIN CLINIC PFS, CLERGY, PUBLIC HEALTH REFERRALS HAS THE PATIENT BEEN EDUCATED REGARDING HIS/HER PLAN OF CARE?YES HAS THE PATIENT BEEN EDUCATED REGARDING PAIN, THE RISK FOR PAIN, THE IMPORTANCE OF EFFECTIVE PAIN MANAGEMENT, AND THE PAIN ASSESSMENT PROCESS?YES HOSPITALIZATION/MAJOR DIAGNOSTIC PROCEDURE CHOLITIS 04/2011 REVIEW OF SYSTEMS REVIEWED BY: PROVIDER: LALIT HENDRICKS . CONSTITUTIONAL: ANY CHANGE IN YOUR MEDICAL CONDITION? NO . CHILLS NO . FEVER NO . INFECTION: DO YOU HAVE NEW INFECTIONS? NO . DO YOU HAVE HISTORY OF MRSA? NO . MUSCULOSKELETAL: ANY NEW PATTERNS OF PAIN OR NUMBNESS? NO . GASTROENTEROLOGY: ANY NEW CHANGE IN BOWEL CONTROL? NO . GENITOURINARY: ANY NEW CHANGE IN BLADDER CONTROL? NO . IS THERE A CHANCE YOU COULD BE ? NO . HEMATOLOGY/LYMPH: DO YOU TAKE ANY BLOOD THINNERS? (FOR EXAMPLE- COUMADIN, PLAVIX, AGGRENOX, PLATEL, PRADAXA, OR XARELTO) NO . WHEN WAS YOUR LAST DOSE? DATE: TIME: . NEUROLOGY: HAVE YOU FALLEN IN THE PAST 12 MONTHS? NO . ANY NEW EXTREMITY NUMBNESS OR WEAKNESS? NO . CARDIOLOGY: DO YOU HAVE A PACEMAKER OR DEFIBRILLATOR? NO . RESPIRATORY: HAVE YOU BEEN SICK IN THE PAST WEEK? NO . FEVER NO . FLU LIKE SYMPTOMS? NO . COUGH NO . INTEGUMENTARY: DO YOU HAVE ANY RASHES OR OPEN SORES? NO . ALLERGIC/IMMUNO: ARE YOU ALLERGIC TO IV DYE? NO . ANY NEW ALLERGIES? NO . PSYCHIATRIC: DO YOU HAVE THOUGHTS OF HURTING YOURSELF OR SOMEONE ELSE? NO . ARE YOU ABUSED, NEGLECTED, OR IN AN UNSAFE ENVIRONMENT? NO . ENDOCRINOLOGY: ARE YOU DIABETIC? NO . OTHER: DO YOU NEED ANY PRESCRIPTIONS? YES, TRAMADOL . IF YES, PLEASE LIST: ____ . ANY NEW PROBLEMS WITH YOUR MEDICATIONS? NO . WHEN DID YOU LAST EAT? ____ . WHEN DID YOU LAST DRINK? ____ . WHAT DID YOU LAST DRINK? ____ . NAME OF PERSON DRIVING YOU HOME? ____ . DO YOU HAVE ANY OTHER QUESTIONS OR CONCERNS NO . VITAL SIGNS WT 205 LBS, HT 5'5'', BMI 34.11 INDEX, BP 113/74 MM HG, HR 60 /MIN, RR 16 /MIN, TEMP 98.0 F, OXYGEN SAT % 96, REVIEWED BY: EM. EXAMINATION GENERAL EXAMINATION: GENERAL APPEARANCE:NO DISTRESS . PSYCHAFFECT NORMAL . LUNGS:LUNG VILLANUEVA ARE CLEAR TO AUSCULTATION BILATERALLY. GOOD MOVEMENT OF AIR . HEART:S1, S2 IN A REGULAR RATE AND RHYTHM. NO SIGNIFICANT MURMURS, RUBS OR GALLOPS NOTED . MUSCULOSKELETAL:MUSCLE STRENGTH TESTING 5/5 BILATERAL UPPER/LOWER EXTREMITIES. NEUROLOGIC EXAM:NORMAL ,STEADY GAIT. ASSESSMENTS ARTHROPATHY - M12.9 (PRIMARY) CERVICALGIA - M54.2 FIBROMYALGIA - M79.7 TREATMENT ARTHROPATHY CONTINUE DOCUSATE SODIUM CAPSULE, 100 MG, 1 CAPSULE NEEDED, ORALLY, ONCE A DAY CONTINUE TRAMADOL HCL TABLET, 50 MG, 2, ORALLY, Q8H PRN MDD6 #100 TAB SHOULD LAST 30 DAYS, 30 DAY(S), 100, REFILLS 2 PROCEDURE CODES FA211 ESTABILISHED PATIENT [facility] FAC[facility] CHARGE DISPOSITION & COMMUNICATION FOLLOW UP 3 MONTHS ELECTRONICALLY SIGNED BY RUTHIE JOHNSON ON 09/30/2018 AT 01:03 PM EST DISCLAIMER : THIS IS A VISIT SUMMARY EXTRACTED FROM THE [employer] CHART. IT IS NOT A COPY OF THE [employer] PROGRESS NOTE. DAYANA
== END ==
LOC: M PAIN 11:00
PROVIDERS: ATTEND Nurse Practitioner Family
DX: M12.9 Arthropathy, unspecified (principal); M54.2 Cervicalgia; M79.7 Fibromyalgia; F43.10 Post-traumatic stress disorder, unspecified; J45.909 Unspecified asthma, uncomplicated; G47.00 Insomnia, unspecified; H81.10 Benign paroxysmal vertigo, unspecified ear; H04.129 Dry eye syndrome of unspecified lacrimal gland; E29.1 Testicular hypofunction; N40.0 Benign prostatic hyperplasia without lower urinary tract symptoms; F32.9 Major depressive disorder, single episode, unspecified; K58.9 Irritable bowel syndrome, unspecified; R00.2 Palpitations; F41.0 Panic disorder [episodic paroxysmal anxiety]; G43.909 Migraine, unspecified, not intractable, without status migrainosus; G47.30 Sleep apnea, unspecified; E78.5 Hyperlipidemia, unspecified; E55.9 Vitamin D deficiency, unspecified; G25.81 Restless legs syndrome; N52.9 Male erectile dysfunction, unspecified; Z79.891 Long term (current) use of opiate analgesic; Z79.899 Other long term (current) drug therapy; Z91.030 Bee allergy status

== ENCOUNTER 2018-09-24 12:38 | Emergency (ER) | payer OTHER ==
[~2018-09-24] VITALS: Ht 165.1 cm; Wt 90.9 kg
[~2018-09-24 12:38] MED LIST changes: -BACL10TA2; -CETI10TA PO; -CIAL5TAB; -DICY10CA13; -DOCU100T8 PO; -ESOM40CA35; -FENO54TA2; -HYDR1CAP25 PO; -LIDO5DIS41 TOP; -MAGN400C2 PO; -MECL-86 PO; -META1TAB22; -METH20TA29; -METO1TAB7; -OXYB5TAB10; -PROAAER10; -PROB250C PO; -RANO5TAB; -RIBO400T PO; -ROPI1TAB; -SUCR1SS; -TRAM50TA2; -VITA30004 PO; -VITA50005; -ZOLM5TAB2; -ZONI50CA3
[2018-09-24] MEDS ORDERED: HYDR1CAP25 PO (12:58)
[2018-09-24] MEDS ORDERED: DOCU100T8 PO (12:58)
[2018-09-24] MEDS ORDERED: METH20TA29 (12:58)
[2018-09-24] MEDS ORDERED: LIDO5DIS41 TOP (12:58)
[2018-09-24] MEDS ORDERED: MECL-86 PO (12:58)
[2018-09-24] MEDS ORDERED: FENO54TA2 (12:58)
[2018-09-24] MEDS ORDERED: PROB250C PO (12:58)
[2018-09-24] MEDS ORDERED: RIBO400T PO (12:58)
[2018-09-24] MEDS ORDERED: TRAM50TA2 (12:58)
[2018-09-24] MEDS ORDERED: OXYB5TAB10 (12:58)
[2018-09-24] MEDS ORDERED: MAGN400C2 PO (12:58)
[2018-09-24] MEDS ORDERED: BACL10TA2 (12:58)
[2018-09-24] MEDS ORDERED: RANO5TAB (12:58)
[2018-09-24] MEDS ORDERED: PROAAER10 (12:58)
[2018-09-24] MEDS ORDERED: VITA50005 (12:58)
[2018-09-24] MEDS ORDERED: CIAL5TAB (12:58)
[2018-09-24] MEDS ORDERED: ROPI1TAB (12:58)
[2018-09-24] MEDS ORDERED: CETI10TA PO (12:58)
[2018-09-24] MEDS ORDERED: META1TAB22 (12:58)
[2018-09-24] MEDS ORDERED: METO1TAB7 (12:58)
[2018-09-24] MEDS ORDERED: ZONI50CA3 (12:58)
[2018-09-24] MEDS ORDERED: ZOLM5TAB2 (12:58)
[2018-09-24] MEDS ORDERED: DICY10CA13 (12:58)
[2018-09-24] MEDS ORDERED: VITA30004 PO (12:58)
[2018-09-24] MEDS ORDERED: SUCR1SS (12:58)
[2018-09-24] MEDS ORDERED: ESOM40CA35 (12:58)
[2018-09-24 14:58] LABS: INFLUENZA A AMPLIFICATION POSITIVE (NEGATIVE); INFLUENZA B AMPLIFICATION NEGATIVE (NEGATIVE)
[2018-09-24 15:20] VITALS: BP 133/82
[2018-09-24] MEDS ORDERED: ACETAMINOPHEN TAB 650MG DOSE (2X325MG) PO ONE (15:30)
== END 2018-09-24 15:27 | disposition home or self-care (01) ==
LOC: M ED 12:38
DX: J09.X2 Influenza due to identified novel influenza A virus with other respiratory manifestations (principal); I10 Essential (primary) hypertension; E78.00 Pure hypercholesterolemia, unspecified; K21.9 Gastro-esophageal reflux disease without esophagitis; K58.9 Irritable bowel syndrome, unspecified; K22.4 Dyskinesia of esophagus; M54.5 Low back pain; Z91.030 Bee allergy status; Z79.899 Other long term (current) drug therapy; Z79.891 Long term (current) use of opiate analgesic

== ENCOUNTER → 2018-12-24 | Outpatient (CLI) | payer OTHER ==
[~2018-12-24] MED LIST changes: -/ESOM40CA OR; +BACL10TA2; +CETI10TA PO; +CIAL5TAB; +DICY10CA13; +DOCU100T8 PO; +ESOM40CA35; +FENO54TA2; +HYDR1CAP25 PO; +LIDO5DIS41 TOP; +MAGN400C2 PO; +MECL-86 PO; +META1TAB22; +METH20TA29; +METO1TAB7; +NEXI1CAP3 OR; +OXYB5TAB10; +PROAAER10; +PROB250C PO; +RANO5TAB; +RIBO400T PO; +ROPI1TAB; +SUCR1SS; +TRAM50TA2; +VITA30004 PO; +VITA50005; +ZOLM5TAB2; +ZONI50CA3
== END ==
LOC: M PAIN 09:00
PROVIDERS: ATTEND Nurse Practitioner Family
DX: M12.9 Arthropathy, unspecified (principal); M54.2 Cervicalgia; M79.7 Fibromyalgia; Z86.59 Personal history of other mental and behavioral disorders; J45.909 Unspecified asthma, uncomplicated; G56.00 Carpal tunnel syndrome, unspecified upper limb; G47.00 Insomnia, unspecified; G43.909 Migraine, unspecified, not intractable, without status migrainosus; G47.30 Sleep apnea, unspecified; E78.5 Hyperlipidemia, unspecified; E55.9 Vitamin D deficiency, unspecified; G25.81 Restless legs syndrome; Z91.030 Bee allergy status; Z79.891 Long term (current) use of opiate analgesic; Z79.899 Other long term (current) drug therapy

== ENCOUNTER → 2019-05-13 | Outpatient (CLI) | payer OTHER ==
[~2019-05-13] MED LIST changes: +RANO500T7; -RANO5TAB; +ZOLM5TAB14; -ZOLM5TAB2
== END ==
LOC: M SMT 14:39
PROVIDERS: ATTEND Physician Assistant Medical
DX: E55.9 Vitamin D deficiency, unspecified (principal)

== ENCOUNTER → 2019-06-24 | Outpatient (CLI) | payer OTHER ==
--- NOTE | 2019-07-08 00:53 | ECWPNPC ---
PATIENT NAME: ROSHNI PRECIADO : 1975 GENDER: MALE VISIT DATE: 06/24/2019 DISCHARGE DATE: 06/24/19 1511 VISIT LOCKED DATE TIME: PHYSICIAN: LALIT RECIO RESOURCE: LALIT RECIO REASON FOR APPOINTMENT 1. -BACK/NECK HISTORY OF PRESENT ILLNESS HISTORY OF PRESENT ILLNESS: HERE FOR F/U OF GENERALIZED JOINT PAIN.USING TRAMADOL 50MG UP TO 3 -4 PILLS PER DAY WITH SOME IMPROVEMENT .DENIES SIDE EFFECTS .RATING PAIN VAS 2-7/10.PAIN IS CONTINUOUS AND DESCRIBED ACHING AND SHARP.STATES OCCASIONAL NIGHTTIME AWAKENINGS DUE TO PAIN.PAIN IS AGGREVATED BY INCREASE IN PHYSICAL ACTIVITY. PAIN THE PATIENT DESCRIBES THE PAIN... FALL RISK SCREENING: SCREENING :NO FALLS REPORTED IN THE LAST YEAR CURRENT MEDICATIONS TAKING MAGNESIUM OXIDE 400 MG CAPSULE ORALLY DAILY TAKING CARAFATE 1 GM TABLET 1 TABLET ORALLY FOUR TIMES DAILY TAKING CETIRIZINE HCL 10 MG TABLET 1 TABLET ORALLY ONCE A DAY TAKING EXCEDRIN TENSION HEADACHE 500-65 MG TABLET DIRECTED ORALLY TAKING LIDODERM 5 % PATCH 1 PATCH TO INTACT SKIN REMOVE AFTER 12 HOURS EXTERNALLY ONCE A DAY TAKING MECLIZINE HCL 25 MG TABLET 1 TABLET NEEDED ORALLY ONCE A DAY TAKING MULTI COMPLETE CAPSULE DIRECTED ORALLY TAKING NEXIUM 40 MG CAPSULE DELAYED RELEASE 1 CAPSULE ORALLY BID TAKING PATANASE 0.6 % SOLUTION 2 SPRAYS NASALLY TWICE A DAY TAKING VITAMIN D3 3000 UNIT TABLET 1 TABLET ORALLY ONCE A DAY TAKING GENTEAL 0.3 % SOLUTION 1 DROP INTO AFFECTED EYE NEEDED OPHTHALMIC ONCE A DAY TAKING RIBOFLAVIN 100 MG TABLET 2 TABLET WITH A MEAL ORALLY TWICE DAILY TAKING SIMVASTATIN 20 20MG TABLET DIRECTED ORAL DAILY TAKING VITAMIN D (ERGOCALCIFEROL) 12562 UNIT CAPSULE 1 CAPSULE ORALLY WEEKLY TAKING METOPROLOL SUCCINATE 50 MG TABLET EXTENDED RELEASE ORALLY DAILY TAKING FENOFIBRATE 54 MG TABLET 1 TABLET WITH A MEAL ORALLY ONCE A DAY TAKING ROPINIROLE HCL 1 MG TABLET 1 TAB ORALLY BID TAKING PROBIOTIC - CAPSULE ORALLY DAILY TAKING RANEXA 500 MG TABLET EXTENDED RELEASE 12 HOUR 1 TABLET ORALLY TWICE A DAY TAKING DICYCLOMINE HCL 10 MG CAPSULE 1 CAP ORALLY THREE TIMES A DAY TAKING METHYLPHENIDATE HCL 5 MG TABLET 1 TABLET ON AN EMPTY STOMACH ORALLY TWICE A DAY TAKING ZONISAMIDE 25 MG CAPSULE 2 CAPSULES ORALLY TWICE A DAY TAKING FISH OIL 1000 MG CAPSULE 1 CAPSULE ORALLY BID TAKING ZOLMITRIPTAN 5 MG TABLET 1 TABLET NEEDED ONE TIME ORALLY ONCE A DAY TAKING ALBUTEROL SULFATE (2.5 MG/3ML) 0.083% NEBULIZATION SOLUTION 3 ML NEEDED INHALATION THREE TIMES A DAY TAKING EPINEPHRINE HCL (ANAPHYLAXIS) 1 MG/ML SOLUTION INJECTION TAKING BACLOFEN 10 MG TABLET 1 TABLET WITH FOOD OR MILK ORALLY THREE TIMES A DAY TAKING ZOMIG ZMT 5 MG TABLET DISPERSIBLE DIRECTED ORALLY TAKING DOCUSATE SODIUM 100 MG CAPSULE 1 CAPSULE NEEDED ORALLY BID TAKING CIALIS 5MG TABLET TAKE 1 TABLET DAILY TAKING TRAMADOL HCL 50 MG TABLET 2 ORALLY Q8H PRN MDD6 #100 TAB SHOULD LAST 30 DAYS NOT-TAKING HYDROXYZINE PAMOATE 25 MG CAPSULE 1 CAPSULE NEEDED ORALLY BID NOT-TAKING CPAP MACHINE DIRECTED NOT-TAKING VESICARE 10 MG TABLET 1 TABLET ORALLY ONCE A DAY NOT-TAKING METAXALONE 800 MG TABLET 1 TABLET ORALLY THREE TIMES A DAY NOT-TAKING CLONAZEPAM 0.5 MG TABLET 1 TABLET AT BEDTIME ORALLY ONLY NEEDED NOT-TAKING RITALIN 20MG TABLET 1 TABLET ORALLY TWICE DAILY NOT-TAKING REQUIP 1 MG TABLET 1 1/2 TABLET ORALLY TWICE A DAY NOT-TAKING ANDROGEL PUMP 12.5 MG/ACT (1%) GEL TRANSDERMAL NOT-TAKING EXTRA STRENGTH ACETAMINOPHEN , NOTES: 500 MG TWICE A DAY NOT-TAKING ASPIRIN 81 81 MG TABLET CHEWABLE 1 TABLET ORALLY ONCE A DAY NOT-TAKING MELOXICAM 15 MG TABLET 1 TABLET ORALLY ONCE A DAY NOT-TAKING CEFDINIR 300 MG CAPSULE 1 CAPSULE ORALLY EVERY 12 HRS NOT-TAKING PREDNISONE 10 MG TABLET 1 TABLET ORALLY ONCE A DAY NOT-TAKING ALBUTEROL SULFATE HFA 108 (90 BASE) MCG/ACT AEROSOL SOLUTION 2 PUFFS NEEDED INHALATION EVERY 4 HRS NOT-TAKING FIBER LAXATIVE 625 MG TABLET 1 TABLET NEEDED ORALLY FOUR TIMES A DAY NOT-TAKING HYOSCYAMINE SULFATE 0.125 MG TABLET 1 TABLET BEFORE MEALS NEEDED ORALLY EVERY 4 HRS NOT-TAKING LOVAZA 1 GM CAPSULE 2 CAPSULES ORALLY TWICE A DAY NOT-TAKING CYMBALTA 30 MG CAPSULE DELAYED RELEASE PARTICLES 1 CAPSULE ORALLY DAILY NOT-TAKING LOPERAMIDE HCL 2 MG CAPSULE 1 CAPSULE ORALLY 8 TIME(S) A DAY NOT-TAKING NITRO-BID 2 % OINTMENT DIRECTED TRANSDERMAL NOT-TAKING HYDROCODONE-ACETAMINOPHEN 5-325 MG TABLET 1 TABLET NEEDED ORALLY EVERY 6 HRS NOT-TAKING PAROXETINE HCL 40 MG TABLET 1 TABLET IN THE MORNING ORALLY ONCE A DAY MEDICATION LIST REVIEWED AND RECONCILED WITH THE PATIENT PAST MEDICAL HISTORY PTSD ALLERGIC RHINITIS ANXIETY ASTHMA 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 FLAT FOOT INSOMNIA 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 DEPRESSION 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 4 SON(S) , 2 DAUGHTER(S) - HEALTHY. FATHER HAD CYSTS ON KIDNEY'S PRIOR TO . SOCIAL HISTORY GENERAL: TOBACCO USE ARE YOU A:NEVER SMOKER OTHERS AT HOME: VISITATION WITH CHILDREN. EDUCATION LEVEL OF EDUCATION:NOT FINISHED COLLEGE DIET: REGULAR. LANGUAGE ROMANSH. DOMESTIC VIOLENCE NONE. RECREATIONAL DRUG USE DENIES. EXERCISE: DAILY. LEARNING BARRIERS / SPECIAL NEEDS CHANGE FROM LAST VISIT?NO PAIN CLINIC PFS, CLERGY, PUBLIC HEALTH REFERRALS HAS THE PATIENT BEEN EDUCATED REGARDING HIS/HER PLAN OF CARE?YES HAS THE PATIENT BEEN EDUCATED REGARDING PAIN, THE RISK FOR PAIN, THE IMPORTANCE OF EFFECTIVE PAIN MANAGEMENT, AND THE PAIN ASSESSMENT PROCESS?YES LATEX QUESTIONNAIRE LATEX ALLERGY : HAVE YOU EVER DEVELOPED ANY TYPE OF REACTION AFTER HANDLING LATEX PRODUCTS SUCH RUBBER GLOVES, CONDOMS, DIAPHRAGMS, BALLOONS, SOCKS, OR UNDERWEAR?NO LATEX ALLERGY : HAVE YOU EVER DEVELOPED ANY TYPE OF REACTION DURING OR AFTER DENTAL APPOINTMENT, VAGINAL/RECTAL EXAMINATION, SURGICAL PROCEDURE, OR ANY OTHER EXPOSURE?NO DATE ASKED : 12/24/2018 LATEX RISK : HAVE YOU EVER HAD ANY DIFFICULTY BREATHING OR HIVES AFTER EATING OR HANDLING ANY FRUITS, OR VEGETABLES; SUCH KIWI, BANANAS, STONE FRUITS, OR CHESTNUTSNO LATEX RISK : DO YOU HAVE A PREVIOUS PERSONAL HISTORY OF MORE THAN NINE SURGERIES, SPINA BIFIDA, OR REPEATED CATHERIZATIONS? NO LATEX RISK : ARE YOU FREQUENTLY EXPOSED TO LATEX PRODUCTS IN YOUR OCCUPATION?NO CAFFEINE 1-2/DAY. ADVANCE DIRECTIVE ADVANCE DIRECTIVE DISCUSSED WITH PATIENT:YES PT DECLINES INFORMATION AND ASSISTANCE WITH FORM AT THIS TIME [facility] NO DRUZE BELIEFS THAT WOULD IMPACT HEALTH CARE. MARITAL STATUS: . ALCOHOL SCREENING POINTS: 1, INTERPRETATION: NEGATIVE. SEXUAL HX HAD SEX IN THE LAST 12 MONTHS (VAGINAL, ORAL, OR ANAL)?: YES, WITH: WOMEN ONLY, USE PROTECTION?: YES, HOW OFTEN?: ALL OF THE TIME, HAVE YOU EVER HAD AN STD?: NO. REVIEWED WITH PT 12/24/18 0943 BV. HOSPITALIZATION/MAJOR DIAGNOSTIC PROCEDURE CHOLITIS 04/2011 REVIEW OF SYSTEMS REVIEWED BY: PROVIDER: LALIT HENDRICKS . CONSTITUTIONAL: ANY CHANGE IN YOUR MEDICAL CONDITION? NO . CHILLS NO . FEVER NO . INFECTION: DO YOU HAVE NEW INFECTIONS? NO . DO YOU HAVE HISTORY OF MRSA? NO . MUSCULOSKELETAL: ANY NEW PATTERNS OF PAIN OR NUMBNESS? NO . GASTROENTEROLOGY: ANY NEW CHANGE IN BOWEL CONTROL? NO . GENITOURINARY: ANY NEW CHANGE IN BLADDER CONTROL? NO . IS THERE A CHANCE YOU COULD BE ? NO . HEMATOLOGY/LYMPH: DO YOU TAKE ANY BLOOD THINNERS? (FOR EXAMPLE- COUMADIN, PLAVIX, AGGRENOX, PLATEL, PRADAXA, OR XARELTO) NO . WHEN WAS YOUR LAST DOSE? DATE: TIME: . NEUROLOGY: HAVE YOU FALLEN IN THE PAST 12 MONTHS? NO . ANY NEW EXTREMITY NUMBNESS OR WEAKNESS? NO . CARDIOLOGY: DO YOU HAVE A PACEMAKER OR DEFIBRILLATOR? NO . RESPIRATORY: HAVE YOU BEEN SICK IN THE PAST WEEK? NO . FEVER NO . FLU LIKE SYMPTOMS? NO . COUGH NO . INTEGUMENTARY: DO YOU HAVE ANY RASHES OR OPEN SORES? NO . ALLERGIC/IMMUNO: ARE YOU ALLERGIC TO IV DYE? NO . ANY NEW ALLERGIES? NO . PSYCHIATRIC: DO YOU HAVE THOUGHTS OF HURTING YOURSELF OR SOMEONE ELSE? NO . ARE YOU ABUSED, NEGLECTED, OR IN AN UNSAFE ENVIRONMENT? NO . ENDOCRINOLOGY: ARE YOU DIABETIC? NO . OTHER: DO YOU NEED ANY PRESCRIPTIONS? NO . IF YES, PLEASE LIST: ____ . ANY NEW PROBLEMS WITH YOUR MEDICATIONS? NO . WHEN DID YOU LAST EAT? ____ . WHEN DID YOU LAST DRINK? ____ . WHAT DID YOU LAST DRINK? ____ . NAME OF PERSON DRIVING YOU HOME? ____ . DO YOU HAVE ANY OTHER QUESTIONS OR CONCERNS NO . VITAL SIGNS WT 212.8 LBS, HT 5'5'', BMI 35.41 INDEX, BP 140/84 MM HG, HR 79 /MIN, RR 18 /MIN, TEMP 98.4 F, OXYGEN SAT % 97%, NA INITIALS SC 14:05, REVIEWED BY: EM. EXAMINATION GENERAL EXAMINATION: GENERALNO DISTRESS . PSYCHAFFECT NORMAL . LUNGS:LUNG VILLANUEVA ARE CLEAR TO AUSCULTATION BILATERALLY. GOOD MOVEMENT OF AIR . HEART:S1, S2 IN A REGULAR RATE AND RHYTHM. NO SIGNIFICANT MURMURS, RUBS OR GALLOPS NOTED . MUSCULOSKELETAL:MUSCLE STRENGTH TESTING 5/5 BILATERAL UPPER/LOWER EXTREMITIES. NEUROLOGIC EXAM:NORMAL ,STEADY GAIT. ASSESSMENTS ARTHROPATHY - M12.9 (PRIMARY) TREATMENT ARTHROPATHY CONTINUE TRAMADOL HCL TABLET, 50 MG, 2, ORALLY, Q8H PRN MDD6 #100 TAB SHOULD LAST 30 DAYS NOTES: ASK PRIMARY CARE ABOUT RHEUMATOLOGY WORK UP, ISTOP REGISTRY REVIEWED AND DEMONSTRATES COMPLLIANCE. BRINGS IN MEDICATIONS WHICH IS APPROPRIATE FOR WHAT WAS DISPENSED. RECENT URINE TOXICOLOGY REVIEWED. NO UNAUTHORIZED MEDICATIONS. NO ILLICIT SUBSTANCES AND PRESCRIBED MEDICATIONS WERE PRESENT. URINE TOX TODAY, RISKS OF NARCOTIC/OPIOD MEDICATIONS WERE INCLUDES BUT IS NOT LIMITED TO RISK OF DEPENDANCE/DEVELOPMENT OF ADDICTION, MOOD DISTURBANCE AND DEPRESSION, OSTEOPOROSIS, HORMONAL AND LABIDAL CHANGES, RESPIRATORY DEPRESSION AND . PATIENT IS ADVISED NOT TO DRIVE OR DRINK ALCOHOL WHILE ON THESE MEDICATIONS. PROCEDURE CODES FA211 ESTABILISHED PATIENT [facility] CHARGE DISPOSITION & COMMUNICATION FOLLOW UP 2 MONTHS (REASON: MED MGMNT) ELECTRONICALLY SIGNED BY RUTHIE JOHNSON ON 07/07/2019 AT 02:47 PM EST DISCLAIMER : THIS IS A VISIT SUMMARY EXTRACTED FROM THE [facility] CHART. IT IS NOT A COPY OF THE [facility] PROGRESS NOTE. DAYANA
== END ==
LOC: M PAIN 13:45
PROVIDERS: ATTEND Nurse Practitioner Family
DX: M12.9 Arthropathy, unspecified (principal); Z79.891 Long term (current) use of opiate analgesic; Z79.899 Other long term (current) drug therapy; Z91.030 Bee allergy status

== ENCOUNTER → 2019-09-19 | Outpatient (CLI) | payer OTHER ==
[~2019-09-19] MED LIST changes: -ROPI1TAB; +ROPI1TAB3; +ZONI50CA11; -ZONI50CA3
--- NOTE | 2019-09-20 01:49 | ECWPNPC ---
PATIENT NAME: ROSHNI PRECIADO : 1975 GENDER: MALE VISIT DATE: 09/19/2019 DISCHARGE DATE: 09/19/19 1543 VISIT LOCKED DATE TIME: PHYSICIAN: LALIT RECIO RESOURCE: LALIT RECIO REASON FOR APPOINTMENT 1. -BACK/KNEE HISTORY OF PRESENT ILLNESS HISTORY OF PRESENT ILLNESS: HERE FOR FOLLOW-UP OF CHRONIC LOW BACK PAIN AND GENERALIZED JOINT PAIN. REPORTS AGGRAVATION IN HIS LOWER BACK PAIN OVER THE PAST 2 WEEKS. DENIES PRECIPITATING EVENT, ALTHOUGH HE DOES REPORT FLULIKE ILLNESS 3 WEEKS AGO AND A FALL A MONTH AGO. HE DOESN'T FEEL THAT EITHER OF THOSE EVENTS AGGRAVATED HIS PAIN, ALTHOUGH HE REPORTS THAT PAIN IS AGGRAVATED WITH COUGHING. REPORTING PAIN AT REST. PAIN RANGES FROM 1-5/10 VAS. REPORTS OCCASIONAL SHOOTING PAIN INTO HIS LEGS WITH BENDING OR LIFTING. MOST OF HIS PAIN IS ACROSS HIS LOWER BACK AREA. PAIN THE PATIENT DESCRIBES THE PAIN... FALL RISK SCREENING: SCREENING :NO FALLS REPORTED IN THE LAST YEAR CURRENT MEDICATIONS TAKING MAGNESIUM OXIDE 400 MG CAPSULE ORALLY DAILY TAKING CARAFATE 1 GM TABLET 1 TABLET ORALLY FOUR TIMES DAILY TAKING CETIRIZINE HCL 10 MG TABLET 1 TABLET ORALLY ONCE A DAY TAKING EXCEDRIN TENSION HEADACHE 500-65 MG TABLET DIRECTED ORALLY TAKING LIDODERM 5 % PATCH 1 PATCH TO INTACT SKIN REMOVE AFTER 12 HOURS EXTERNALLY ONCE A DAY TAKING MECLIZINE HCL 25 MG TABLET 1 TABLET NEEDED ORALLY ONCE A DAY TAKING MULTI COMPLETE CAPSULE DIRECTED ORALLY TAKING NEXIUM 40 MG CAPSULE DELAYED RELEASE 1 CAPSULE ORALLY BID TAKING PATANASE 0.6 % SOLUTION 2 SPRAYS NASALLY TWICE A DAY TAKING VITAMIN D3 3000 UNIT TABLET 1 TABLET ORALLY ONCE A DAY TAKING GENTEAL 0.3 % SOLUTION 1 DROP INTO AFFECTED EYE NEEDED OPHTHALMIC ONCE A DAY TAKING RIBOFLAVIN 100 MG TABLET 2 TABLET WITH A MEAL ORALLY TWICE DAILY TAKING SIMVASTATIN 20 20MG TABLET DIRECTED ORAL DAILY TAKING VITAMIN D (ERGOCALCIFEROL) 25262 UNIT CAPSULE 1 CAPSULE ORALLY WEEKLY TAKING METOPROLOL SUCCINATE 50 MG TABLET EXTENDED RELEASE ORALLY DAILY TAKING FENOFIBRATE 54 MG TABLET 1 TABLET WITH A MEAL ORALLY ONCE A DAY TAKING ROPINIROLE HCL 1 MG TABLET 1 TAB ORALLY THREE TIMES DAILY TAKING PROBIOTIC - CAPSULE ORALLY DAILY TAKING RANEXA 500 MG TABLET EXTENDED RELEASE 12 HOUR 1 TABLET ORALLY TWICE A DAY TAKING DICYCLOMINE HCL 10 MG CAPSULE 1 CAP ORALLY THREE TIMES A DAY TAKING METHYLPHENIDATE HCL 5 MG TABLET 1 TABLET ON AN EMPTY STOMACH ORALLY TWICE A DAY TAKING ZONISAMIDE 25 MG CAPSULE 2 CAPSULES ORALLY TWICE A DAY TAKING FISH OIL 1000 MG CAPSULE 1 CAPSULE ORALLY BID TAKING ZOLMITRIPTAN 5 MG TABLET 1 TABLET NEEDED ONE TIME ORALLY ONCE A DAY TAKING ALBUTEROL SULFATE (2.5 MG/3ML) 0.083% NEBULIZATION SOLUTION 3 ML NEEDED INHALATION THREE TIMES A DAY TAKING EPINEPHRINE HCL (ANAPHYLAXIS) 1 MG/ML SOLUTION INJECTION TAKING BACLOFEN 10 MG TABLET 1 TABLET WITH FOOD OR MILK ORALLY THREE TIMES A DAY TAKING ZOMIG ZMT 5 MG TABLET DISPERSIBLE DIRECTED ORALLY TAKING DOCUSATE SODIUM 100 MG CAPSULE 1 CAPSULE NEEDED ORALLY BID TAKING CIALIS 5MG TABLET TAKE 1 TABLET DAILY TAKING TRAMADOL HCL 50 MG TABLET 2 ORALLY Q8H PRN MDD6 #100 TAB SHOULD LAST 30 DAYS NOT-TAKING HYDROXYZINE PAMOATE 25 MG CAPSULE 1 CAPSULE NEEDED ORALLY BID NOT-TAKING CPAP MACHINE DIRECTED NOT-TAKING VESICARE 10 MG TABLET 1 TABLET ORALLY ONCE A DAY NOT-TAKING METAXALONE 800 MG TABLET 1 TABLET ORALLY THREE TIMES A DAY NOT-TAKING CLONAZEPAM 0.5 MG TABLET 1 TABLET AT BEDTIME ORALLY ONLY NEEDED NOT-TAKING RITALIN 20MG TABLET 1 TABLET ORALLY TWICE DAILY NOT-TAKING REQUIP 1 MG TABLET 1 1/2 TABLET ORALLY TWICE A DAY NOT-TAKING ANDROGEL PUMP 12.5 MG/ACT (1%) GEL TRANSDERMAL NOT-TAKING EXTRA STRENGTH ACETAMINOPHEN , NOTES: 500 MG TWICE A DAY NOT-TAKING ASPIRIN 81 81 MG TABLET CHEWABLE 1 TABLET ORALLY ONCE A DAY NOT-TAKING MELOXICAM 15 MG TABLET 1 TABLET ORALLY ONCE A DAY NOT-TAKING CEFDINIR 300 MG CAPSULE 1 CAPSULE ORALLY EVERY 12 HRS NOT-TAKING PREDNISONE 10 MG TABLET 1 TABLET ORALLY ONCE A DAY NOT-TAKING ALBUTEROL SULFATE HFA 108 (90 BASE) MCG/ACT AEROSOL SOLUTION 2 PUFFS NEEDED INHALATION EVERY 4 HRS NOT-TAKING FIBER LAXATIVE 625 MG TABLET 1 TABLET NEEDED ORALLY FOUR TIMES A DAY NOT-TAKING HYOSCYAMINE SULFATE 0.125 MG TABLET 1 TABLET BEFORE MEALS NEEDED ORALLY EVERY 4 HRS NOT-TAKING LOVAZA 1 GM CAPSULE 2 CAPSULES ORALLY TWICE A DAY NOT-TAKING CYMBALTA 30 MG CAPSULE DELAYED RELEASE PARTICLES 1 CAPSULE ORALLY DAILY NOT-TAKING LOPERAMIDE HCL 2 MG CAPSULE 1 CAPSULE ORALLY 8 TIME(S) A DAY NOT-TAKING NITRO-BID 2 % OINTMENT DIRECTED TRANSDERMAL NOT-TAKING HYDROCODONE-ACETAMINOPHEN 5-325 MG TABLET 1 TABLET NEEDED ORALLY EVERY 6 HRS NOT-TAKING PAROXETINE HCL 40 MG TABLET 1 TABLET IN THE MORNING ORALLY ONCE A DAY MEDICATION LIST REVIEWED AND RECONCILED WITH THE PATIENT PAST MEDICAL HISTORY PTSD ALLERGIC RHINITIS ANXIETY ASTHMA 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 FLAT FOOT INSOMNIA 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 DEPRESSION 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 4 SON(S) , 2 DAUGHTER(S) - HEALTHY. FATHER HAD CYSTS ON KIDNEY'S PRIOR TO . SOCIAL HISTORY GENERAL: TOBACCO USE ARE YOU A:NEVER SMOKER OTHERS AT HOME: VISITATION WITH CHILDREN. EDUCATION LEVEL OF EDUCATION:NOT FINISHED COLLEGE DIET: REGULAR. LANGUAGE DOMINICAN. DOMESTIC VIOLENCE NONE. RECREATIONAL DRUG USE DENIES. EXERCISE: DAILY. LEARNING BARRIERS / SPECIAL NEEDS CHANGE FROM LAST VISIT?NO PAIN CLINIC PFS, CLERGY, PUBLIC HEALTH REFERRALS HAS THE PATIENT BEEN EDUCATED REGARDING HIS/HER PLAN OF CARE?YES HAS THE PATIENT BEEN EDUCATED REGARDING PAIN, THE RISK FOR PAIN, THE IMPORTANCE OF EFFECTIVE PAIN MANAGEMENT, AND THE PAIN ASSESSMENT PROCESS?YES LATEX QUESTIONNAIRE LATEX ALLERGY : HAVE YOU EVER DEVELOPED ANY TYPE OF REACTION AFTER HANDLING LATEX PRODUCTS SUCH RUBBER GLOVES, CONDOMS, DIAPHRAGMS, BALLOONS, SOCKS, OR UNDERWEAR?NO LATEX ALLERGY : HAVE YOU EVER DEVELOPED ANY TYPE OF REACTION DURING OR AFTER DENTAL APPOINTMENT, VAGINAL/RECTAL EXAMINATION, SURGICAL PROCEDURE, OR ANY OTHER EXPOSURE?NO DATE ASKED : 12/24/2018 LATEX RISK : HAVE YOU EVER HAD ANY DIFFICULTY BREATHING OR HIVES AFTER EATING OR HANDLING ANY FRUITS, OR VEGETABLES; SUCH KIWI, BANANAS, STONE FRUITS, OR CHESTNUTSNO LATEX RISK : DO YOU HAVE A PREVIOUS PERSONAL HISTORY OF MORE THAN NINE SURGERIES, SPINA BIFIDA, OR REPEATED CATHERIZATIONS? NO LATEX RISK : ARE YOU FREQUENTLY EXPOSED TO LATEX PRODUCTS IN YOUR OCCUPATION?NO CAFFEINE 1-2/DAY. ADVANCE DIRECTIVE ADVANCE DIRECTIVE DISCUSSED WITH PATIENT:YES PT DECLINES INFORMATION AND ASSISTANCE WITH FORM AT THIS TIME SY[place]GOGUE NO SHINTO BELIEFS THAT WOULD IMPACT HEALTH CARE. MARITAL STATUS: . ALCOHOL SCREENING POINTS: 1, INTERPRETATION: NEGATIVE. SEXUAL HX HAD SEX IN THE LAST 12 MONTHS (VAGINAL, ORAL, OR ANAL)?: YES, WITH: WOMEN ONLY, USE PROTECTION?: YES, HOW OFTEN?: ALL OF THE TIME, HAVE YOU EVER HAD AN STD?: NO. REVIEWED WITH PT 12/24/18 0943 BV. HOSPITALIZATION/MAJOR DIAGNOSTIC PROCEDURE CHOLITIS 04/2011 REVIEW OF SYSTEMS REVIEWED BY: PROVIDER: LALIT HENDRICKS . CONSTITUTIONAL: ANY CHANGE IN YOUR MEDICAL CONDITION? YES EAR INFECTION . CHILLS NO . FEVER NO . INFECTION: DO YOU HAVE NEW INFECTIONS? YES PT REPORTS LEFT EAR INFECTION, STARTED ON CEFDINIR 09/16/19 . DO YOU HAVE HISTORY OF MRSA? NO . MUSCULOSKELETAL: ANY NEW PATTERNS OF PAIN OR NUMBNESS? YES PT REPORTS THAT HIS LOW BACK IS WORSE IN INTENSITY, HAVING DIFFICULTY BENDING OVER, FEELS LIKE IT WANTS TO "GIVE OUT SOMETIMES, AND TO LOCK UP SOMETIMES". THIS HAS BEEN HAPPENING OVER THE LAST COUPLE OF WEEKS, - HE REPORTS A RECENT FALL, AND A RECENT CASE OF THE FLU A COUPLE OF WEEKS AGO, UNSURE IF EITHER OF THESE ARE THE REASON FOR HIS INCREASED PAIN. . GASTROENTEROLOGY: ANY NEW CHANGE IN BOWEL CONTROL? NO . GENITOURINARY: ANY NEW CHANGE IN BLADDER CONTROL? NO . IS THERE A CHANCE YOU COULD BE ? NO . HEMATOLOGY/LYMPH: DO YOU TAKE ANY BLOOD THINNERS? (FOR EXAMPLE- COUMADIN, PLAVIX, AGGRENOX, PLATEL, PRADAXA, OR XARELTO) NO . WHEN WAS YOUR LAST DOSE? DATE: TIME: . NEUROLOGY: HAVE YOU FALLEN IN THE PAST 12 MONTHS? YES PT REPORTS A FALL ABOUT 31/2 -4 WEEKS AGO, HE SLIPPED ON HIS PORCH AND FELL ONTO HIS LEFT SIDE. HE STATES HIS ENTIRE ARM WAS BRUISED AND SORE, BUT DENIES ANY INJURIES. NO ED VISIT, NO XRAYS DONE. . ANY NEW EXTREMITY NUMBNESS OR WEAKNESS? NO . CARDIOLOGY: DO YOU HAVE A PACEMAKER OR DEFIBRILLATOR? NO . RESPIRATORY: HAVE YOU BEEN SICK IN THE PAST WEEK? YES PT REPORTS TWO WEEKS AGO HE WAS SENT HOME FROM WORK ABOUT TWO WEEKS AGO - SORE THROAT, BODY ACHES, CHILLS, COUGH AND DIARRHEA. [facility] . FEVER NO . FLU LIKE SYMPTOMS? YES . COUGH NO . INTEGUMENTARY: DO YOU HAVE ANY RASHES OR OPEN SORES? NO . ALLERGIC/IMMUNO: ARE YOU ALLERGIC TO IV DYE? NO . ANY NEW ALLERGIES? NO . PSYCHIATRIC: DO YOU HAVE THOUGHTS OF HURTING YOURSELF OR SOMEONE ELSE? NO . ARE YOU ABUSED, NEGLECTED, OR IN AN UNSAFE ENVIRONMENT? NO . ENDOCRINOLOGY: ARE YOU DIABETIC? NO . OTHER: DO YOU NEED ANY PRESCRIPTIONS? YES . IF YES, PLEASE LIST: ____TRAMADOL . ANY NEW PROBLEMS WITH YOUR MEDICATIONS? NO . WHEN DID YOU LAST EAT? ____ . WHEN DID YOU LAST DRINK? ____ . WHAT DID YOU LAST DRINK? ____ . NAME OF PERSON DRIVING YOU HOME? ____ . DO YOU HAVE ANY OTHER QUESTIONS OR CONCERNS NO . VITAL SIGNS WT 213.2 LBS, HT 5'5'', BMI 35.47 INDEX, BP 132/77 MM HG, HR 71 /MIN, RR 18 /MIN, TEMP 98.0 F, OXYGEN SAT % 98%, SAFE IN ENV? (Y/N) YES, NA INITIALS MS 1452, REVIEWED BY: PEDRO. EXAMINATION GENERAL EXAMINATION: GENERAL AWAKE,ALERT ,PLEAASANT . PSYCH AFFECT NORMAL . LUNGS: LUNG VILLANUEVA ARE CLEAR TO AUSCULTATION BILATERALLY. GOOD MOVEMENT OF AIR . HEART: S1, S2 IN A REGULAR RATE AND RHYTHM. NO SIGNIFICANT MURMURS, RUBS OR GALLOPS NOTED . LUMBAR:PALPATION:TENDER OVER BILAT. L4/5-L5/S1 LUMBAR FACETS WITH FACET LOADING.. DIAGNOSTIC TESTS REVIEWEDMRI OF THE LS-SPINE 2017 . ASSESSMENTS LUMBOSACRAL SPONDYLOSIS WITHOUT MYELOPATHY - M47.817 (PRIMARY) TREATMENT LUMBOSACRAL SPONDYLOSIS WITHOUT MYELOPATHY CONTINUE DOCUSATE SODIUM CAPSULE, 100 MG, 1 CAPSULE NEEDED, ORALLY, BID REFILL TRAMADOL HCL TABLET, 50 MG, 2, ORALLY, Q8H PRN MDD6 #100 TAB SHOULD LAST 30 DAYS, 30 DAYS, 100, REFILLS 2 NOTES: BILATERAL L4-5, L5-S1, THERAPEUTIC FACET BLOCK, ISTOP REGISTRY REVIEWED AND DEMONSTRATES COMPLLIANCE. BRINGS IN MEDICATIONS WHICH IS APPROPRIATE FOR WHAT WAS DISPENSED. RECENT URINE TOXICOLOGY REVIEWED. NO UNAUTHORIZED MEDICATIONS. NO ILLICIT SUBSTANCES AND PRESCRIBED MEDICATIONS WERE PRESENT. , RISKS OF NARCOTIC/OPIOD MEDICATIONS INCLUDES BUT IS NOT LIMITED TO RISK OF DEPENDANCE/DEVELOPMENT OF ADDICTION, MOOD DISTURBANCE AND DEPRESSION, OSTEOPOROSIS, HORMONAL AND LABIDAL CHANGES, RESPIRATORY DEPRESSION AND . PATIENT IS ADVISED NOT TO DRIVE OR DRINK ALCOHOL WHILE ON THESE MEDICATIONS. PREVENTIVE MEDICINE PAIN CLINIC TEACHING: PROCEDURE TEACHING INFORMATIONAL HANDOUT FOR THERAPEUTIC LUMBAR FACET BLOCKS PRINTED AND REVIEWED WITH PATIENT. PRE PROCEDURE INSTRUCTIONS REVIEWED WITH PATIENT. PATIENT VERBALIZES UNDERSTANDING. 09/19/2019 LAS. PROCEDURE CODES FA211 ESTABILISHED PATIENT [facility] CHARGE DISPOSITION & COMMUNICATION FOLLOW UP POST (REASON: BILATERAL L4-5, L5-S1, THERAPEUTIC FACET BLOCK) ELECTRONICALLY SIGNED BY RUTHIE JOHNSON ON 09/19/2019 AT 03:41 PM EST DISCLAIMER : THIS IS A VISIT SUMMARY EXTRACTED FROM THE [employer] CHART. IT IS NOT A COPY OF THE [employer] PROGRESS NOTE. DAYANA
== END ==
LOC: M PAIN 14:30
PROVIDERS: ATTEND Nurse Practitioner Family
DX: M47.817 Spondylosis without myelopathy or radiculopathy, lumbosacral region (principal); M79.7 Fibromyalgia; Z79.891 Long term (current) use of opiate analgesic; Z79.899 Other long term (current) drug therapy; Z98.84 Bariatric surgery status; Z91.030 Bee allergy status

== ENCOUNTER → 2019-12-29 | Outpatient (CLI) | payer OTHER ==
[~2019-12-29] MED LIST changes: +BUPIVACAINE HCL 0.25% 30ML VIAL As Ordered ONE; +ISOVUE-M 300 61% 15ML VIAL As Ordered ONE; +LIDOCAINE 1% SDV 30ML VIAL As Ordered ONE; +NORCO, ANEXSIA 5/325MG TABLET (HYDROcodone/ACETAMINOPHEN) As Ordered ONE; +dexameTHASONE 10MG/1ML VIAL PRES.FREE (J1100 PER 1MG) As Ordered ONE; +diazePAM 5 MG TAB As Ordered ONE
== END ==
LOC: M LABSMTC 12:21
PROVIDERS: ATTEND Anesthesiology
DX: Z11.59 Encounter for screening for other viral diseases (principal)
CPT/HCPCS: C9803; U0003

== ENCOUNTER → 2020-01-01 | Outpatient (CLI) | payer OTHER ==
[~2020-01-01] MED LIST changes: -BUPIVACAINE HCL 0.25% 30ML VIAL As Ordered ONE; -ISOVUE-M 300 61% 15ML VIAL As Ordered ONE; -LIDOCAINE 1% SDV 30ML VIAL As Ordered ONE; -NORCO, ANEXSIA 5/325MG TABLET (HYDROcodone/ACETAMINOPHEN) As Ordered ONE; -dexameTHASONE 10MG/1ML VIAL PRES.FREE (J1100 PER 1MG) As Ordered ONE; -diazePAM 5 MG TAB As Ordered ONE
--- NOTE | 2020-01-02 00:15 | REP ---
C-ARM VIEWS LUMBAR SPINE: CLINICAL HISTORY: Pain. Two C-arm views of lower lumbar spine performed during lower lumbar facet injection bilaterally by Dr. Mancilla. Two needles are seen on the right and two on the left at the lower lumbar facet joints, and a small amount of contrast is injected. 13 seconds fluoroscopy time utilized. Electronically Signed by Akbar Frazier MD 01/05/2020 09:30 P
--- NOTE | 2020-01-02 01:55 | ECWPNPC ---
PATIENT NAME: ROSHNI PRECIADO : 1975 GENDER: MALE VISIT DATE: 01/01/2020 DISCHARGE DATE: 01/01/20 1527 VISIT LOCKED DATE TIME: PHYSICIAN: BRADY CANO MD RESOURCE: BRADY CANO MD REASON FOR APPOINTMENT 1. BILATERAL L4-5, L5-S1, THERAPEUTIC FACET BLOCK HISTORY OF PRESENT ILLNESS GENERAL: -. 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 PAIN CENTER INTAKE QUESTIONS: DO YOU HAVE A HISTORY OF MRSA? :NO DO YOU TAKE A BLOOD THINNERS? :NO DO YOU HAVE ANY BLEEDING DISORDERS? :NO ANY NEW NUMBNESS OR WEAKNESS IN YOUR LEGS OR ARMS? :NO ANY PACEMAKER,DEFIBRILLATOR, OR DORSAL COLUMN STIMULATOR? :NO DO YOU HAVE ANY RASHES OR OPEN SORES? :NO ARE YOU ALLERGIC TO IV DYE? :NO ARE YOU DIABETIC? :NO ANY NEW PROBLEMS WITH YOUR MEDICATIONS? :NO HAVE YOU RECEIVED A VACCINE IN THE PAST 30 DAYS? :NO DO YOU PLAN TO RECEIVE A VACCINE IN THE NEXT 21 DAYS? :NO ANY HISTORY OF SEIZURES? :NO ANY HISTORY OF CARDIAC ISSUES OR EVENTS? :YES AL THAT WAS DISCOVERED ON AN EKG, HEART MURMUR DO YOU HAVE SLEEP APNEA? :YES DO YOU WEAR A CPAP?YES OCCASSIONAL, WAITING FOR ANOTHER SLEEP STUDY ANY RECENT HEAD INJURY? :NO DO YOU HAVE ANY NEW INFECTIONS? :NO WHEN DID YOU LAST EAT? : -12/31 7:30AM WHEN DID YOU LAST DRINK? : -12/31 1130 WHAT DID YOU LAST DRINK? : -WATER NAME OF PERSON DRIVING YOU HOME? : MOM-ERIN DO YOU HAVE ANY OTHER QUESTIONS OR CONCERNS? : - CURRENT MEDICATIONS TAKING MAGNESIUM OXIDE 400 MG CAPSULE ORALLY DAILY, NOTES: 6/2 PM TAKING CARAFATE 1 GM TABLET 1 TABLET ORALLY FOUR TIMES DAILY, NOTES: 2 WEEKS TAKING CETIRIZINE HCL 10 MG TABLET 1 TABLET ORALLY ONCE A DAY, NOTES: 12/29 PM TAKING EXCEDRIN TENSION HEADACHE 500-65 MG TABLET DIRECTED ORALLY , NOTES: 2 DAYS TAKING LIDODERM 5 % PATCH 1 PATCH TO INTACT SKIN REMOVE AFTER 12 HOURS EXTERNALLY ONCE A DAY, NOTES: MONTH TAKING MECLIZINE HCL 25 MG TABLET 1 TABLET NEEDED ORALLY ONCE A DAY, NOTES: 2 MONTHS TAKING MULTI COMPLETE CAPSULE 1 CAP ORALLY DAILY, NOTES: 12/29 PM TAKING NEXIUM 40 MG CAPSULE DELAYED RELEASE 1 CAPSULE ORALLY BID, NOTES: 12/31 8AM TAKING PATANASE 0.6 % SOLUTION 2 SPRAYS NASALLY TWICE A DAY, NOTES: 12/29 PM TAKING VITAMIN D3 3000 UNIT TABLET 1 TABLET ORALLY ONCE A DAY, NOTES: 12/31 AM TAKING GENTEAL 0.3 % SOLUTION 1 DROP INTO AFFECTED EYE NEEDED OPHTHALMIC ONCE A DAY, NOTES: 2 DAYS AGO TAKING RIBOFLAVIN 100 MG TABLET 2 TABLET WITH A MEAL ORALLY TWICE DAILY, NOTES: 12/31 AM TAKING SIMVASTATIN 20 20MG TABLET DIRECTED ORAL DAILY, NOTES: 12/29 PM TAKING VITAMIN D (ERGOCALCIFEROL) [id number] UNIT CAPSULE 1 CAPSULE ORALLY WEEKLY, NOTES: SUNDAY TAKING METOPROLOL SUCCINATE 50 MG TABLET EXTENDED RELEASE ORALLY DAILY, NOTES: 12/31 9AM TAKING FENOFIBRATE 54 MG TABLET 1 TABLET WITH A MEAL ORALLY ONCE A DAY, NOTES: 12/31 9AM TAKING ROPINIROLE HCL 1 MG TABLET 1 TAB ORALLY THREE TIMES DAILY, NOTES: 2 DAYS AGO TAKING PROBIOTIC - CAPSULE ORALLY DAILY, NOTES: 12/30 2PM TAKING RANEXA 500 MG TABLET EXTENDED RELEASE 12 HOUR 1 TABLET ORALLY TWICE A DAY, NOTES: 12/31 9AM TAKING DICYCLOMINE HCL 10 MG CAPSULE 1 CAP ORALLY THREE TIMES A DAY, NOTES: 12/31 AM TAKING ZONISAMIDE 25 MG CAPSULE 2 CAPSULES ORALLY TWICE A DAY, NOTES: 12/31 AM TAKING FISH OIL 1000 MG CAPSULE 2 CAPSULES ORALLY BID, NOTES: 2 DAYS AGO TAKING ZOLMITRIPTAN 5 MG TABLET 1 TABLET NEEDED ONE TIME ORALLY ONCE A DAY, NOTES: 2 DAYS AGO TAKING EPINEPHRINE HCL (ANAPHYLAXIS) 1 MG/ML SOLUTION INJECTION TAKING BACLOFEN 10 MG TABLET 1 TABLET WITH FOOD OR MILK ORALLY THREE TIMES A DAY, NOTES: 12/31 AM TAKING ZOMIG ZMT 5 MG TABLET DISPERSIBLE DIRECTED ORALLY , NOTES: 6/4 AM TAKING DOCUSATE SODIUM 100 MG CAPSULE 1 CAPSULE NEEDED ORALLY BID, NOTES: 6/4 AM TAKING TRAMADOL HCL 50 MG TABLET 2 ORALLY Q8H PRN MDD6 #100 TAB SHOULD LAST 30 DAYS, NOTES: 6/4 AM TAKING CIALIS 5MG TABLET 1 TABLET ORALLY ONCE A DAY, NOTES: 2 DAYS AGO TAKING RITALIN 20 MG TABLET 1 TABLET ON AN EMPTY STOMACH ORALLY TWICE A DAY, NOTES: 64 AM TAKING CPAP MACHINE DIRECTED , NOTES: USES OCCASSIONALLY TAKING EXTRA STRENGTH ACETAMINOPHEN , NOTES: 500 MG TWICE A DAY TAKING ASPIRIN 81 81 MG TABLET CHEWABLE 1 TABLET ORALLY ONCE A DAY, NOTES: 6/3 2PM TAKING ALBUTEROL SULFATE HFA 108 (90 BASE) MCG/ACT AEROSOL SOLUTION 2 PUFFS NEEDED INHALATION EVERY 4 HRS, NOTES: 6/3 2PM TAKING FIBER LAXATIVE 625 MG TABLET 1 TABLET NEEDED ORALLY FOUR TIMES A DAY, NOTES: 6/3 2PM NOT-TAKING ALBUTEROL SULFATE (2.5 MG/3ML) 0.083% NEBULIZATION SOLUTION 3 ML NEEDED INHALATION THREE TIMES A DAY NOT-TAKING METHYLPHENIDATE HCL 5 MG TABLET 1 TABLET ON AN EMPTY STOMACH ORALLY TWICE A DAY NOT-TAKING HYDROXYZINE PAMOATE 25 MG CAPSULE 1 CAPSULE NEEDED ORALLY BID NOT-TAKING VESICARE 10 MG TABLET 1 TABLET ORALLY ONCE A DAY NOT-TAKING METAXALONE 800 MG TABLET 1 TABLET ORALLY THREE TIMES A DAY NOT-TAKING CLONAZEPAM 0.5 MG TABLET 1 TABLET AT BEDTIME ORALLY ONLY NEEDED NOT-TAKING RITALIN 20MG TABLET 1 TABLET ORALLY TWICE DAILY NOT-TAKING REQUIP 1 MG TABLET 1 1/2 TABLET ORALLY TWICE A DAY NOT-TAKING ANDROGEL PUMP 12.5 MG/ACT (1%) GEL TRANSDERMAL NOT-TAKING MELOXICAM 15 MG TABLET 1 TABLET ORALLY ONCE A DAY NOT-TAKING CEFDINIR 300 MG CAPSULE 1 CAPSULE ORALLY EVERY 12 HRS NOT-TAKING PREDNISONE 10 MG TABLET 1 TABLET ORALLY ONCE A DAY NOT-TAKING HYOSCYAMINE SULFATE 0.125 MG TABLET 1 TABLET BEFORE MEALS NEEDED ORALLY EVERY 4 HRS NOT-TAKING LOVAZA 1 GM CAPSULE 2 CAPSULES ORALLY TWICE A DAY NOT-TAKING CYMBALTA 30 MG CAPSULE DELAYED RELEASE PARTICLES 1 CAPSULE ORALLY DAILY NOT-TAKING LOPERAMIDE HCL 2 MG CAPSULE 1 CAPSULE ORALLY 8 TIME(S) A DAY NOT-TAKING NITRO-BID 2 % OINTMENT DIRECTED TRANSDERMAL NOT-TAKING HYDROCODONE-ACETAMINOPHEN 5-325 MG TABLET 1 TABLET NEEDED ORALLY EVERY 6 HRS NOT-TAKING PAROXETINE HCL 40 MG TABLET 1 TABLET IN THE MORNING ORALLY ONCE A DAY MEDICATION LIST REVIEWED AND RECONCILED WITH THE PATIENT PAST MEDICAL HISTORY PTSD ALLERGIC RHINITIS ANXIETY ASTHMA 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 FLAT FOOT INSOMNIA 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 DEPRESSION 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 4 SON(S) , 2 DAUGHTER(S) - HEALTHY. FATHER HAD CYSTS ON KIDNEY'S PRIOR TO . SOCIAL HISTORY GENERAL: TOBACCO USE ARE YOU A:NEVER SMOKER LATEX QUESTIONNAIRE LATEX ALLERGY : HAVE YOU EVER DEVELOPED ANY TYPE OF REACTION AFTER HANDLING LATEX PRODUCTS SUCH RUBBER GLOVES, CONDOMS, DIAPHRAGMS, BALLOONS, SOCKS, OR UNDERWEAR?NO LATEX ALLERGY : HAVE YOU EVER DEVELOPED ANY TYPE OF REACTION DURING OR AFTER DENTAL APPOINTMENT, VAGINAL/RECTAL EXAMINATION, SURGICAL PROCEDURE, OR ANY OTHER EXPOSURE?NO LATEX RISK : HAVE YOU EVER HAD ANY DIFFICULTY BREATHING OR HIVES AFTER EATING OR HANDLING ANY FRUITS, OR VEGETABLES; SUCH KIWI, BANANAS, STONE FRUITS, OR CHESTNUTSNO LATEX RISK : DO YOU HAVE A PREVIOUS PERSONAL HISTORY OF MORE THAN NINE SURGERIES, SPINA BIFIDA, OR REPEATED CATHERIZATIONS? NO LATEX RISK : ARE YOU FREQUENTLY EXPOSED TO LATEX PRODUCTS IN YOUR OCCUPATION?NO NOT SURE IF THEY USE LATEX GLOVES AT WORK OR NOT DATE ASKED : 12/31/2019 ALCOHOL SCREENING POINTS: 1, INTERPRETATION: NEGATIVE. RECREATIONAL DRUG USE DENIES. CAFFEINE 1-2/DAY. SEXUAL HX HAD SEX IN THE LAST 12 MONTHS (VAGINAL, ORAL, OR ANAL)?: YES, WITH: WOMEN ONLY, USE PROTECTION?: YES, HOW OFTEN?: ALL OF THE TIME, HAVE YOU EVER HAD AN STD?: NO. [employer] NO [employer] BELIEFS THAT WOULD IMPACT HEALTH CARE. LANGUAGE SPANISH. EDUCATION LEVEL OF EDUCATION:NOT FINISHED COLLEGE LEARNING BARRIERS / SPECIAL NEEDS CHANGE FROM LAST VISIT?NO BARRIERS TO LEARNING?NO HEARING IMPAIRED?NO VISION IMPAIRED?NO COGNITIVELY IMPAIRED?NO READINESS TO LEARN?YES LEARNING PREFERENCES?YES :DEMONSTRATION/VERBAL INSTRUCTION, OTHER (PLEASE COMMENT) HANDS ON LEARNING CAPABILITIES PRESENT?YES EMOTIONAL BARRIERS?NO SPECIAL DEVICES?NO AUTOMOBILE RADIO REPAIRER NEEDED?NO DOMESTIC VIOLENCE DO YOU FEEL SAFE IN YOUR ENVIRONMENT?YES DIET: REGULAR. EXERCISE: DAILY. MARITAL STATUS: . 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 PAIN CLINIC PFS, CLERGY, PUBLIC HEALTH REFERRALS HAS THE PATIENT BEEN EDUCATED REGARDING HIS/HER PLAN OF CARE?YES HAS THE PATIENT BEEN EDUCATED REGARDING PAIN, THE RISK FOR PAIN, THE IMPORTANCE OF EFFECTIVE PAIN MANAGEMENT, AND THE PAIN ASSESSMENT PROCESS?YES ADVANCE DIRECTIVE ADVANCE DIRECTIVE DISCUSSED WITH PATIENT:YES 12/31/2019 PT DOES NOT HAVE ANY ADVANCED DIRECTIVES AND HE DECLINES INFORMATION ON HCP AT THIS TIME. AD REVIEWED WITH PT 12/24/18 0943 BV. HOSPITALIZATION/MAJOR DIAGNOSTIC PROCEDURE CHOLITIS 04/2011 VITAL SIGNS WT 212 LBS, HT 5'5'', BMI 35.27 INDEX, BP 116/78 MM HG, HR 71 /MIN, RR 18 /MIN, TEMP 99.1 F, OXYGEN SAT % 97%, SAFE IN ENV? (Y/N) Y, NA INITIALS AW 1214, REVIEWED BY: ANISHA. 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 PROCEDURE IN ROOM 1450 PT AMBULATED TO PROCEDURE ROOM AND POSITIONED SELF ON TABLE WITH MIN 1 ASSIST, GAIT STEADY, PT TOLERATED AMBULATION AND POSITIONING WELL., PHYSICIAN IN ROOM 1457, START 1502, FINISH 1508, PHYSICIAN OUT OF ROOM 1510, OUT OF ROOM 1515, STEROID DEXAMETHASONE 20MG, O2 RA, ECG NORMAL SINUS, PATIENT SHIELDED YES, SAFETY STRAP YES, PREP CHLOROPREP, IV INFUSED N/A, DRESSING TEGADERM MD CANO LOC: TAMRA ALBARADO RN 01/01/2020 3:01:55 PM > , 1. ALERT, ORIENTED RESP: TAMRA ALBARADO RN 01/01/2020 3:02:05 PM > , 1. REGULAR, NO DYSPNEA COLOR: TAMRA ALBARADO RN 01/01/2020 3:02:11 PM > , 1. PINK SKIN: TAMRA ALBARADO RN 01/01/2020 3:02:18 PM > , 1. WARM, DRY POSITION: TAMRA ALBARADO RN 01/01/2020 3:02:49 PM > , 1. PRONE VITALS: TAMRA ALBARADO RN 01/01/2020 2:52:56 PM > 128/79, 69, 18, 99% PT AMBULATED FROM PROCEDURE ROOM WITH MIN 1 ASSIST, GAIT STEADY, PT TOLERATED PROCEDURE WELL. , TAMRA ALBARADO RN 01/01/2020 3:20:32 PM > 136/77, 71, 18, 99% DISCHARGE: POST PAIN 2-3, DRESSING SITE DRY AND INTACT, IV N/A, GAIT STEADY, TEACHING COMPLETED, PATIENT ACKNOWLEDGES UNDERSTANDING YES, PATIENT DISCHARGED AT 1520 PT AMBULATED INDEPENDENTLY, GAIT STEADY. PN LUMBAR FACET BLOCK THERAPEUTIC PRE PROCEDURE DIAGNOSIS LUMBAR SPONDYLOSIS, LUMBOSACRAL SPONDYLOSIS POST PROCEDURE DIAGNOSIS LUMBAR SPONDYLOSIS, LUMBOSACRAL SPONDYLOSIS PROCEDURE BILATERAL L4-L5 AND BILATERAL L5-S1 LUMBAR FACET THERAPEUTIC BLOCK SURGEON DR. BRADY CANO CIVIL PREPAREDNESS TRAINING OFFICER NONE ANESTHESIA LOCAL PRE PROCEDURE NOTE THE PATIENT HAS A HISTORY OF CHRONIC LOW BACK PAIN. I EVALUATED THE PATIENT AND REVIEWED THE CHART. I WENT OVER THE RISKS, ALTERNATIVES, AND BENEFITS ASSOCIATED WITH THIS PROCEDURE. POSSIBLE IMMUNOSUPPRESSION AND THE USE OF STEROIDS WAS DISCUSSED WITH THE PATIENT. THE PATIENT IS AWARE THAT THEY WILL NOT RECEIVE AN EXCUSE OFF WORK ASSOCIATED WITH THIS ISSUE. THE PATIENT WOULD LIKE TO PROCEED AND GIVES CONSENT TO PERFORM THE PROCEDURE. THE PATIENT DENIES UNEXPLAINABLE WEIGHT LOSS, FEVER, CHILLS, OR NEW CHANGES IN URINARY OR BOWEL CONTROL. THE PATIENT IS COVID-19 NEGATIVE DESCRIPTION OF PROCEDURE THE PATIENT WAS BROUGHT TO THE PROCEDURE ROOM AND PLACED IN THE PRONE POSITION. THE LUMBOSACRAL AREA WAS CLEANED WITH CHLORAPREP SOLUTION AND DRAPED ASEPTICALLY. THE PROCEDURE WAS DONE UNDER STERILE CONDITIONS. I CHECKED LATERALITY AND THE LEVEL WHERE THE PROCEDURE WAS GOING TO BE PERFORMED WITH THE PATIENT AND THE SUPPORTING STAFF AT THE MOMENT OF THE TIME OUT IN THE PROCEDURE ROOM. UNDER FLUOROSCOPIC GUIDANCE, THE TARGET POINT WAS SELECTED AT THE RIGHT AND LEFT L4-L5 AND RIGHT AND LEFT L5-S1 FACET JOINTS. TARGET POINT WAS SELECTED AFTER LATERAL ROTATION AND TILT OF THE MAGNIFIER OF THE C-ARM. LIDOCAINE 0.5% WAS USED TO NUMB THE SKIN AND THE SUBCUTANEOUS TISSUE BELOW IT. SPINAL NEEDLES, 22-GAUGE, WERE ADVANCED UNDER FLUOROSCOPIC GUIDANCE AND FOLLOWING PATIENT FEEDBACK UNTIL THE TARGETS WERE TOUCHED. THE POSITION OF THE NEEDLES WAS VERIFIED WITH AP AND LATERAL VIEWS. AFTER PROPER POSITION OF THE NEEDLES WAS ACHIEVED, ISOVUE-M DYE 30%, 0.1 ML, WAS INJECTED SHOWING ADEQUATE SPREAD OF THE DYE. THEN A SOLUTION OF 1.0 ML OF BUPIVACAINE 0.125% OF DEXAMETHASONE 5 MG WAS INJECTED AT EACH SITE. THERE WAS NO EVIDENCE OF BLOOD, PARESTHESIA OR CEREBROSPINAL FLUID DURING THE PROCEDURE. THE PATIENT WAS SENT TO THE RECOVERY ROOM. THE PATIENT WAS MOVING THE EXTREMITIES AND DOING WELL. THERE WAS NO COMPLICATION DURING THE PROCEDURE. FLUOROSCOPY TIME WAS 13 SECONDS POST PROCEDURE NOTE THE PATIENT WILL BE SEEN IN A FOLLOW UP IN THE NEXT FEW WEEKS. I AM LOOKING FOR LONG LASTING RELIEF FOR THE PATIENT WITH THIS INTERVENTION. INSTRUCTIONS WERE GIVEN, QUESTIONS WERE ANSWERED, AND THE PATIENT EXPRESSED UNDERSTANDING AND AGREES WITH THE PLAN. THE PATIENT IS AWARE TO STAY HOME FOR THE NEXT WEEK, IF POSSIBLE, DUE TO COVID-19. I, DAVID BARRETO, DOCUMENTED THE ABOVE INFORMATION ACTING A SCRIBE FOR DR. CANO. I HAVE REVIEWED THE ABOVE DOCUMENT, WRITTEN BY DAVID BARRETO, CIGAR HEAD PERFORATOR, AND I VERIFY THAT IT IS ACCURATE PROCEDURE CODES [id number] INJ PARAVERT F JNT L/S 1 LEV, MODIFIERS: 50 [id number] INJ PARAVERT F JNT L/S 2 LEV, MODIFIERS: 50 DISPOSITION & COMMUNICATION FOLLOW UP F/UP WITH DENTAL INSURANCE BILLER (REASON: POST LFBT BINDU L4-L5, L5-S1) ELECTRONICALLY SIGNED BY BRADY CANO MD, MD ON 01/01/2020 AT 04:28 PM EDT DISCLAIMER : THIS IS A VISIT SUMMARY EXTRACTED FROM THE [employer] CHART. IT IS NOT A COPY OF THE [employer] PROGRESS NOTE. HEDYD
== END ==
LOC: M PAIN 13:45
PROVIDERS: ATTEND Anesthesiology
DX: M47.817 Spondylosis without myelopathy or radiculopathy, lumbosacral region (principal); M47.816 Spondylosis without myelopathy or radiculopathy, lumbar region
CPT/HCPCS: 64493; 64494; J1100; Q9967

== ENCOUNTER → 2020-01-20 | Outpatient (CLI) | payer OTHER ==
--- NOTE | 2020-01-24 01:51 | ECWPNPC ---
PATIENT NAME: ROSHNI PRECIADO : 1975 GENDER: MALE VISIT DATE: 01/20/2020 DISCHARGE DATE: 01/20/20 1314 VISIT LOCKED DATE TIME: PHYSICIAN: LALIT RECIO RESOURCE: LALIT RECIO REASON FOR APPOINTMENT 1. POST BILAT LFBT PAT PHONE CALL COMPLETED HISTORY OF PRESENT ILLNESS GENERAL: ROSHNI IS AGREEABLE TO TELEPHONE VISIT TODAY. HAD BILATERAL THERAPEUTIC LUMBAR FACET BLOCK, L4-5, L5-S1 ON 01/01/2020. REPORTING MARKED REDUCTION IN PAIN THAT CONTINUES TODAY. STATES THIS PROCEDURE HELPED HIM MORE THAN ANY OF THE OTHER PROCEDURES AT OUR CLINIC. DISCUSSED TREATMENT PLAN. -. FALL RISK SCREENING: SCREENING :ONE FALL WITHOUT INJURY IN THE PAST YEAR PT REPORTS HE SLIPPED ON THE ICE THIS PAST WINTER AND FELL, SUSTAINING BUMPS AND BRUISES, BUT DENIES ANY INJURIES PAIN SCREENING: PATIENT HAS A COMPLAINT OF ACUTE OR CHRONIC PAIN :YES INTENSITY OF PAIN (SCALE OF 1 TO 10):1 PT REPORTS A CONSTANT "ALL-OVER" PAIN THAT AT ITS BEST IS A 1-2, BUT IS GETS UP TO A 6 AT TIMES. WHAT DOES YOUR PAIN FEEL LIKE:ACHING, BURNING, SHARP, STABBING, TENDER, THROBBING, SORE, SHOOTING DURATION:CONSTANT PAIN IS INCREASED BY: ACTIVITIES, SITTING, DRIVING, STANDING PAIN IS DECREASED BY:USE OF PAIN MEDICATIONS REST HELPS A LITTLE NURSING NOTE: -. PAIN CENTER INTAKE QUESTIONS: DO YOU HAVE A HISTORY OF MRSA? :NO DO YOU TAKE A BLOOD THINNERS? :NO DO YOU HAVE ANY BLEEDING DISORDERS? :NO ANY NEW NUMBNESS OR WEAKNESS IN YOUR LEGS OR ARMS? :NO ANY PACEMAKER,DEFIBRILLATOR, OR DORSAL COLUMN STIMULATOR? :NO DO YOU HAVE ANY RASHES OR OPEN SORES? :YES RASH PRESENT ON HIS SIDE ARE YOU ALLERGIC TO IV DYE? :NO ARE YOU DIABETIC? :NO ANY NEW PROBLEMS WITH YOUR MEDICATIONS? :NO HAVE YOU RECEIVED A VACCINE IN THE PAST 30 DAYS? :NO DO YOU PLAN TO RECEIVE A VACCINE IN THE NEXT 21 DAYS? :NO DO YOU NEED ANY PRESCRIPTION? :NO DO YOU TAKE ANY IMMUNOSUPPRESSIVE MEDICATIONS? :NO IS THERE A CHANCE YOU COULD BE ? :NO ARE YOU BREAST FEEDING? :NO CURRENT MEDICATIONS TAKING MAGNESIUM OXIDE 400 MG CAPSULE ORALLY DAILY, NOTES: 6/2 PM TAKING CARAFATE 1 GM TABLET 1 TABLET ORALLY FOUR TIMES DAILY, NOTES: 2 WEEKS TAKING CETIRIZINE HCL 10 MG TABLET 1 TABLET ORALLY ONCE A DAY, NOTES: 12/29 PM TAKING EXCEDRIN TENSION HEADACHE 500-65 MG TABLET DIRECTED ORALLY , NOTES: 2 DAYS TAKING LIDODERM 5 % PATCH 1 PATCH TO INTACT SKIN REMOVE AFTER 12 HOURS EXTERNALLY ONCE A DAY, NOTES: MONTH TAKING MECLIZINE HCL 25 MG TABLET 1 TABLET NEEDED ORALLY ONCE A DAY, NOTES: 2 MONTHS TAKING MULTI COMPLETE CAPSULE 1 CAP ORALLY DAILY, NOTES: 12/29 PM TAKING NEXIUM 40 MG CAPSULE DELAYED RELEASE 1 CAPSULE ORALLY BID, NOTES: 12/31 8AM TAKING PATANASE 0.6 % SOLUTION 2 SPRAYS NASALLY TWICE A DAY, NOTES: 12/29 PM TAKING VITAMIN D3 3000 UNIT TABLET 1 TABLET ORALLY ONCE A DAY, NOTES: 12/31 AM TAKING GENTEAL 0.3 % SOLUTION 1 DROP INTO AFFECTED EYE NEEDED OPHTHALMIC ONCE A DAY, NOTES: 2 DAYS AGO TAKING RIBOFLAVIN 100 MG TABLET 2 TABLET WITH A MEAL ORALLY TWICE DAILY, NOTES: 12/31 AM TAKING SIMVASTATIN 20 20MG TABLET DIRECTED ORAL DAILY, NOTES: 12/29 PM TAKING VITAMIN D (ERGOCALCIFEROL) 23905 UNIT CAPSULE 1 CAPSULE ORALLY WEEKLY, NOTES: SUNDAY TAKING METOPROLOL SUCCINATE 50 MG TABLET EXTENDED RELEASE ORALLY DAILY, NOTES: 12/31 9AM TAKING FENOFIBRATE 54 MG TABLET 1 TABLET WITH A MEAL ORALLY ONCE A DAY, NOTES: 12/31 9AM TAKING ROPINIROLE HCL 1 MG TABLET 1 TAB ORALLY THREE TIMES DAILY, NOTES: 2 DAYS AGO TAKING PROBIOTIC - CAPSULE ORALLY DAILY, NOTES: 12/30 2PM TAKING RANEXA 500 MG TABLET EXTENDED RELEASE 12 HOUR 1 TABLET ORALLY TWICE A DAY, NOTES: 12/31 9AM TAKING DICYCLOMINE HCL 10 MG CAPSULE 1 CAP ORALLY THREE TIMES A DAY, NOTES: 12/31 AM TAKING ZONISAMIDE 25 MG CAPSULE 2 CAPSULES ORALLY TWICE A DAY, NOTES: 12/31 AM TAKING FISH OIL 1000 MG CAPSULE 2 CAPSULES ORALLY BID, NOTES: 2 DAYS AGO TAKING ZOLMITRIPTAN 5 MG TABLET 1 TABLET NEEDED ONE TIME ORALLY ONCE A DAY, NOTES: 2 DAYS AGO TAKING EPINEPHRINE HCL (ANAPHYLAXIS) 1 MG/ML SOLUTION INJECTION TAKING BACLOFEN 10 MG TABLET 1 TABLET WITH FOOD OR MILK ORALLY THREE TIMES A DAY, NOTES: 12/31 AM TAKING ZOMIG ZMT 5 MG TABLET DISPERSIBLE DIRECTED ORALLY , NOTES: 6/4 AM TAKING DOCUSATE SODIUM 100 MG CAPSULE 1 CAPSULE NEEDED ORALLY BID, NOTES: 64 AM TAKING TRAMADOL HCL 50 MG TABLET 2 ORALLY Q8H PRN MDD6 #100 TAB SHOULD LAST 30 DAYS, NOTES: 64 AM TAKING CIALIS 5MG TABLET 1 TABLET ORALLY ONCE A DAY, NOTES: 2 DAYS AGO TAKING RITALIN 20 MG TABLET 1 TABLET ON AN EMPTY STOMACH ORALLY TWICE A DAY, NOTES: 6/4 AM TAKING CPAP MACHINE DIRECTED , NOTES: USES OCCASSIONALLY TAKING EXTRA STRENGTH ACETAMINOPHEN , NOTES: 500 MG TWICE A DAY TAKING ASPIRIN 81 81 MG TABLET CHEWABLE 1 TABLET ORALLY ONCE A DAY, NOTES: 6/3 2PM TAKING ALBUTEROL SULFATE HFA 108 (90 BASE) MCG/ACT AEROSOL SOLUTION 2 PUFFS NEEDED INHALATION EVERY 4 HRS, NOTES: 6/3 2PM TAKING FIBER LAXATIVE 625 MG TABLET 1 TABLET NEEDED ORALLY FOUR TIMES A DAY, NOTES: 6/3 2PM NOT-TAKING ALBUTEROL SULFATE (2.5 MG/3ML) 0.083% NEBULIZATION SOLUTION 3 ML NEEDED INHALATION THREE TIMES A DAY NOT-TAKING METHYLPHENIDATE HCL 5 MG TABLET 1 TABLET ON AN EMPTY STOMACH ORALLY TWICE A DAY NOT-TAKING HYDROXYZINE PAMOATE 25 MG CAPSULE 1 CAPSULE NEEDED ORALLY BID NOT-TAKING VESICARE 10 MG TABLET 1 TABLET ORALLY ONCE A DAY NOT-TAKING METAXALONE 800 MG TABLET 1 TABLET ORALLY THREE TIMES A DAY NOT-TAKING CLONAZEPAM 0.5 MG TABLET 1 TABLET AT BEDTIME ORALLY ONLY NEEDED NOT-TAKING RITALIN 20MG TABLET 1 TABLET ORALLY TWICE DAILY NOT-TAKING REQUIP 1 MG TABLET 1 1/2 TABLET ORALLY TWICE A DAY NOT-TAKING ANDROGEL PUMP 12.5 MG/ACT (1%) GEL TRANSDERMAL NOT-TAKING MELOXICAM 15 MG TABLET 1 TABLET ORALLY ONCE A DAY NOT-TAKING CEFDINIR 300 MG CAPSULE 1 CAPSULE ORALLY EVERY 12 HRS NOT-TAKING PREDNISONE 10 MG TABLET 1 TABLET ORALLY ONCE A DAY NOT-TAKING HYOSCYAMINE SULFATE 0.125 MG TABLET 1 TABLET BEFORE MEALS NEEDED ORALLY EVERY 4 HRS NOT-TAKING LOVAZA 1 GM CAPSULE 2 CAPSULES ORALLY TWICE A DAY NOT-TAKING CYMBALTA 30 MG CAPSULE DELAYED RELEASE PARTICLES 1 CAPSULE ORALLY DAILY NOT-TAKING LOPERAMIDE HCL 2 MG CAPSULE 1 CAPSULE ORALLY 8 TIME(S) A DAY NOT-TAKING NITRO-BID 2 % OINTMENT DIRECTED TRANSDERMAL NOT-TAKING HYDROCODONE-ACETAMINOPHEN 5-325 MG TABLET 1 TABLET NEEDED ORALLY EVERY 6 HRS NOT-TAKING PAROXETINE HCL 40 MG TABLET 1 TABLET IN THE MORNING ORALLY ONCE A DAY MEDICATION LIST REVIEWED AND RECONCILED WITH THE PATIENT PAST MEDICAL HISTORY PTSD ALLERGIC RHINITIS ANXIETY ASTHMA 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 FLAT FOOT INSOMNIA 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 DEPRESSION 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 4 SON(S) , 2 DAUGHTER(S) - HEALTHY. FATHER HAD CYSTS ON KIDNEY'S PRIOR TO . SOCIAL HISTORY GENERAL: TOBACCO USE ARE YOU A:NEVER SMOKER LATEX QUESTIONNAIRE LATEX ALLERGY : HAVE YOU EVER DEVELOPED ANY TYPE OF REACTION AFTER HANDLING LATEX PRODUCTS SUCH RUBBER GLOVES, CONDOMS, DIAPHRAGMS, BALLOONS, SOCKS, OR UNDERWEAR?NO LATEX ALLERGY : HAVE YOU EVER DEVELOPED ANY TYPE OF REACTION DURING OR AFTER DENTAL APPOINTMENT, VAGINAL/RECTAL EXAMINATION, SURGICAL PROCEDURE, OR ANY OTHER EXPOSURE?NO DATE ASKED : 12/31/2019 LATEX RISK : HAVE YOU EVER HAD ANY DIFFICULTY BREATHING OR HIVES AFTER EATING OR HANDLING ANY FRUITS, OR VEGETABLES; SUCH KIWI, BANANAS, STONE FRUITS, OR CHESTNUTSNO LATEX RISK : DO YOU HAVE A PREVIOUS PERSONAL HISTORY OF MORE THAN NINE SURGERIES, SPINA BIFIDA, OR REPEATED CATHERIZATIONS? NO LATEX RISK : ARE YOU FREQUENTLY EXPOSED TO LATEX PRODUCTS IN YOUR OCCUPATION?NO NOT SURE IF THEY USE LATEX GLOVES AT WORK OR NOT ALCOHOL SCREENING POINTS: 1, INTERPRETATION: NEGATIVE. RECREATIONAL DRUG USE DENIES. CAFFEINE 1-2/DAY. SEXUAL HX HAD SEX IN THE LAST 12 MONTHS (VAGINAL, ORAL, OR ANAL)?: YES, WITH: WOMEN ONLY, USE PROTECTION?: YES, HOW OFTEN?: ALL OF THE TIME, HAVE YOU EVER HAD AN STD?: NO. ANGLICAN NO JEWISH BELIEFS THAT WOULD IMPACT HEALTH CARE. LANGUAGE FRENCH. EDUCATION LEVEL OF EDUCATION:NOT FINISHED COLLEGE LEARNING BARRIERS / SPECIAL NEEDS CHANGE FROM LAST VISIT?NO 01/19/2020 BARRIERS TO LEARNING?NO HEARING IMPAIRED?NO VISION IMPAIRED?NO COGNITIVELY IMPAIRED?NO READINESS TO LEARN?YES LEARNING PREFERENCES?YES :DEMONSTRATION/VERBAL INSTRUCTION, OTHER (PLEASE COMMENT) HANDS ON LEARNING CAPABILITIES PRESENT?YES EMOTIONAL BARRIERS?NO SPECIAL DEVICES?NO CNC FIELD SERVICE ENGINEER NEEDED?NO DOMESTIC VIOLENCE DO YOU FEEL SAFE IN YOUR ENVIRONMENT?YES DIET: REGULAR. EXERCISE: DAILY. MARITAL STATUS: . OTHERS AT HOME: GEOSPATIAL INFORMATION SCIENTIST TO 2 GRANDCHILDREN. PAIN CLINIC PFS, CLERGY, PUBLIC HEALTH REFERRALS HAS THE PATIENT BEEN EDUCATED REGARDING HIS/HER PLAN OF CARE?YES HAS THE PATIENT BEEN EDUCATED REGARDING PAIN, THE RISK FOR PAIN, THE IMPORTANCE OF EFFECTIVE PAIN MANAGEMENT, AND THE PAIN ASSESSMENT PROCESS?YES ADVANCE DIRECTIVE ADVANCE DIRECTIVE DISCUSSED WITH PATIENT:YES 01/19/2020 PT DOES NOT HAVE ANY ADVANCED DIRECTIVES AND HE DECLINES INFORMATION ON HCP AT THIS TIME. HOSPITALIZATION/MAJOR DIAGNOSTIC PROCEDURE CHOLITIS 04/2011 REVIEW OF SYSTEMS CONSTITUTIONAL: ANY RECENT FEVER NO . CHILLS NO . WEIGHT CHANGE OF UNKNOWN REASONS NO . GASTROENTEROLOGY: NEW UNEXPLAINABLE CHANGES IN BOWEL CONTROL NO . CONSTIPATION NO . GENITOURINARY: ANY NEW CHANGE IN BLADDER CONTROL? NO . NEUROLOGY: NEW ONSET DIZZINESS OR NEUROLOGICAL CHANGES NOT MENTIONED NO . NEW NUMBNESS OR PAIN PATTERNS NOT MENTIONED AND PERTINENT TO TODAY'S VISIT NO . CARDIOLOGY: NEW CHEST PRESSURE NO . NEW CHEST PAIN NO . RESPIRATORY: UNEXPLAINABLE COUGH NO . NEW SHORTNESS OF BREATH NO . ASSESSMENTS LUMBOSACRAL SPONDYLOSIS WITHOUT MYELOPATHY - M47.817 (PRIMARY) SPONDYLOSIS OF LUMBAR SPINE - M47.816 TREATMENT LUMBOSACRAL SPONDYLOSIS WITHOUT MYELOPATHY CONTINUE LIDODERM PATCH, 5 %, 1 PATCH TO INTACT SKIN REMOVE AFTER 12 HOURS, EXTERNALLY, ONCE A DAY, NOTES: MONTH CONTINUE TRAMADOL HCL TABLET, 50 MG, 2, ORALLY, Q8H PRN MDD6 #100 TAB SHOULD LAST 30 DAYS, NOTES: 6/4 AM NOTES: FOLLOW-UP IN PAIN CLINIC IN 2 MONTHS. WE WILL CONSIDER DIAGNOSTIC LUMBAR FACET BLOCK/RADIOFREQUENCY. TOTAL TIME SPENT DURING TELEPHONE VISIT WAS APPROXIMATELY 12 MINUTES. DISPOSITION & COMMUNICATION FOLLOW UP 2 MONTHS (REASON: CONSIDER DIAGNOSTIC LUMBAR FACET BLOCK) ELECTRONICALLY SIGNED BY RUTHIE JOHNSON ON 01/23/2020 AT 03:19 PM EDT DISCLAIMER : THIS IS A VISIT SUMMARY EXTRACTED FROM THE [facility] CHART. IT IS NOT A COPY OF THE [facility] PROGRESS NOTE. DAYANA
== END ==
LOC: M PAIN 14:15
PROVIDERS: ATTEND Nurse Practitioner Family
DX: M47.817 Spondylosis without myelopathy or radiculopathy, lumbosacral region (principal); M47.816 Spondylosis without myelopathy or radiculopathy, lumbar region

== ENCOUNTER 2020-04-16 12:20 | Emergency (ER) | payer OTHER ==
[~2020-04-16] VITALS: Ht 165.1 cm; Wt 94.3 kg
[2020-04-16] MEDS ORDERED: NS 1,000 ML IV ONE (13:00)
[2020-04-16] MEDS ORDERED: PANTOPRAZOLE 40MG VIAL (C9113 PER 1) IV ONE (13:00)
[2020-04-16] MEDS ORDERED: PROMETHAZINE INJ 25 MG/ML VIAL (J2550) IV ONE (13:00)
[2020-04-16] MEDS ORDERED: KETOROLAC 30 MG/ML 1ML VIAL IV ONE (13:00)
[2020-04-16 13:33] LABS: BASO % 0.3 % (0.0-1.0); EOS % 0.1 % (0.0-3.0); HEMOGLOBIN 14.8 g/dl (13.5-17.5); MEAN CORPUSCULAR HGB CONC 35.2 g/dl (32.0-36.5); MEAN CORPUSCULAR VOLUME 88.1 fl (80.0-96.0); MONO # 0.4 10^3/uL (0.0-0.8); MONO % 3.3 % (0.0-5.0); NEUTROPHILS # 9.5 10^3/uL (1.5-8.5); NEUTROPHILS % 86.7 % (36.0-66.0); PLATELET COUNT, AUTOMATED 223 10^3/uL (150-450); RED BLOOD COUNT 4.77 10^6/uL (4.30-6.10)
--- NOTE | 2020-04-16 13:42 | REPVR ---
PROCEDURE INFORMATION: Exam: CT Abdomen And Pelvis Without Contrast Exam date and time: 04/16/2020 12:58 PM Age: 44 years old Clinical indication: Abdominal pain; Additional info: Abd pain TECHNIQUE: Imaging protocol: Computed tomography of the abdomen and pelvis without contrast. Radiation optimization: All CT scans at this facility use at least one of these dose optimization techniques: automated exposure control; mA and/or kV adjustment per patient size (includes targeted exams where dose is matched to clinical indication); or iterative reconstruction. COMPARISON: No relevant prior studies available. FINDINGS: Liver: The liver slightly enlarged 177 mm. Gallbladder and bile ducts: Normal. No calcified stones. No ductal dilation. Pancreas: Normal. No ductal dilation. Spleen: The spleen is enlarged at 146 mm. Adrenals: Normal. No mass. Kidneys and ureters: There is mild to moderate right hydronephrosis. There is a right UVJ stone measuring 5.5 mm. This has Hounsfield units of 675. This is seen on the geography professor topogram. Stomach and bowel: There is scattered colonic diverticula. Appendix: The appendix is unremarkable. Intraperitoneal space: Unremarkable. No free air. No significant fluid collection. Vasculature: Unremarkable. No abdominal aortic aneurysm. Lymph nodes: Unremarkable. No enlarged lymph nodes. Bladder: Unremarkable as visualized. Reproductive: Unremarkable as visualized. Bones/joints: Unremarkable. No acute fracture. Soft tissues: Unremarkable. IMPRESSION: 1. 5.5 mm right UVJ stone with hydronephrosis. This stone is seen on the geography professor image. 2. Hepatosplenomegaly. 3. Diverticulosis. Electronically signed by: Kevin Pickard On 04/16/2020 13:42:16 PM
[2020-04-16 14:01] LABS: ALBUMIN 4.1 GM/DL (3.2-5.2); ALT/SGPT 30 U/L (12-78); BILIRUBIN,DIRECT < 0.1 MG/DL (0.0-0.2); BILIRUBIN,TOTAL 0.3 MG/DL (0.2-1.0); BLOOD UREA NITROGEN 22 MG/DL (7-18); CALCIUM LEVEL 9.1 MG/DL (8.5-10.1); CARBON DIOXIDE LEVEL 20 MEQ/L (21-32); CHLORIDE LEVEL 115 MEQ/L (98-107); CREATININE FOR GFR 1.55 MG/DL (0.70-1.30); GLOMERULAR FILTRATION RATE 52.1 (>60); GLUCOSE, FASTING 139 MG/DL (70-100); LIPASE 119 U/L (73-393); POTASSIUM SERUM 4.2 MEQ/L (3.5-5.1); SODIUM LEVEL 143 MEQ/L (136-145); TOTAL PROTEIN 7.3 GM/DL (6.4-8.2)
[2020-04-16] MEDS ORDERED: FLOM0.4C39 PO (14:28)
[2020-04-16] MEDS ORDERED: ZOFR4TAB16 PO (14:28)
[2020-04-16] MEDS ORDERED: KETO10TAB PO (14:28)
[2020-04-16 14:36] VITALS: BP 117/60
== END 2020-04-16 14:53 | disposition home or self-care (01) ==
LOC: M ED 12:20
DX: N20.1 Calculus of ureter (principal); K21.9 Gastro-esophageal reflux disease without esophagitis; G89.29 Other chronic pain; R16.2 Hepatomegaly with splenomegaly, not elsewhere classified; K57.30 Diverticulosis of large intestine without perforation or abscess without bleeding; Z79.899 Other long term (current) drug therapy; Z91.030 Bee allergy status
CPT/HCPCS: 36415; 74176; 80048; 80076; 81001; 83690; 85025; 96361; 96374; 96375; 99284; C9113; J1885

== ENCOUNTER → 2020-04-24 | Outpatient (CLI) | payer OTHER ==
[~2020-04-24] MED LIST changes: +FLOM0.4C39 PO; +KETO10TAB PO; +PRED20TA PO; +ZOFR4TAB16 PO
[2020-04-24 18:45] LABS: BASO % 0.5 % (0.0-1.0); EOS # 0.1 10^3/uL (0.0-0.5); EOS % 1.1 % (0.0-3.0); HEMATOCRIT 45.2 % (42.0-52.0); HEMOGLOBIN 15.2 g/dl (13.5-17.5); LYMPH # 2.1 10^3/uL (1.5-5.0); LYMPH % 31.8 % (24.0-44.0); MEAN CORPUSCULAR HEMOGLOBIN 30.6 pg (27.0-33.0); MEAN CORPUSCULAR HGB CONC 33.6 g/dl (32.0-36.5); MEAN CORPUSCULAR VOLUME 90.9 fl (80.0-96.0); MONO # 0.5 10^3/uL (0.0-0.8); MONO % 7.8 % (0.0-5.0); NEUTROPHILS # 3.8 10^3/uL (1.5-8.5); NEUTROPHILS % 58.2 % (36.0-66.0); PLATELET COUNT, AUTOMATED 247 10^3/uL (150-450); RED BLOOD COUNT 4.97 10^6/uL (4.30-6.10); WHITE BLOOD COUNT 6.6 10^3/uL (4.0-10.0)
[2020-04-24 19:19] LABS: ALBUMIN 4.2 GM/DL (3.2-5.2); BILIRUBIN,TOTAL 0.8 MG/DL (0.2-1.0); CALCIUM LEVEL 9.8 MG/DL (8.5-10.1); CHOLESTEROL RISK RATIO 3.482 (<5); CREATININE FOR GFR 1.43 MG/DL (0.70-1.30); GLOMERULAR FILTRATION RATE 57.2 (>60); POTASSIUM SERUM 4.8 MEQ/L (3.5-5.1); TOTAL PROTEIN 7.6 GM/DL (6.4-8.2)
== END ==
LOC: M WUC 14:46
PROVIDERS: ATTEND Nurse Practitioner Family
DX: E78.5 Hyperlipidemia, unspecified (principal); E66.9 Obesity, unspecified

== ENCOUNTER → 2020-05-04 | Outpatient (CLI) | payer OTHER ==
--- NOTE | 2020-05-10 15:07 | REP ---
CT ABDOMEN AND PELVIS WITHOUT INTRAVENOUS (IV) OR ORAL CONTRAST: RENAL STONE PROTOCOL HISTORY: Kidney stones. COMPARISON: CT study from 04/16/2020. CT FINDINGS: Preliminary chocolate temperer view demonstrates a normal bowel gas pattern. No abnormal calcification is seen. The lung bases are clear on axial CT images. The liver and the spleen are unchanged and normal in size, homogeneous in texture. Gallbladder is contracted at the time of todays CT. Normal adrenal glands are seen. No abnormalities noted in the pancreas. There is a 17-mm cyst in the lower pole of the left kidney unchanged. The previously noted right-sided hydronephrosis is no longer apparent. No intrarenal nephrolithiasis is seen on either side. No left-sided hydronephrosis is seen. The previously noted distal ureteral calculus is no longer apparent. No bladder calculus is seen. Normal appendix is seen. Small and large intestinal bowel loops are unremarkable. No abdominal wall defects are seen. No bony destructive lesion. IMPRESSION: Previously noted right ureterovesical junction calculus is no longer visible. The previously noted right-sided hydronephrosis has resolved. No urinary tract calculus is seen on todays CT study. MTDD
== END ==
LOC: M RAD 17:33
PROVIDERS: ATTEND Nurse Practitioner Family
DX: N20.0 Calculus of kidney (principal)

== ENCOUNTER 2020-05-06 08:03 | Emergency (ER) | payer OTHER ==
[~2020-05-06] VITALS: Ht 165.1 cm; Wt 98.0 kg
[2020-05-06 08:03] VITALS: BP 145/91
[~2020-05-06 08:03] MED LIST changes: -PRED20TA PO
[2020-05-06] MEDS ORDERED: NS 1,000 ML IV ONE (08:45)
[2020-05-06] MEDS ORDERED: diazePAM 5 MG TAB PO ONE (08:45)
[2020-05-06 09:17] LABS: BASO % 0.5 % (0.0-1.0); EOS # 0.1 10^3/uL (0.0-0.5); EOS % 1.2 % (0.0-3.0); HEMATOCRIT 37.8 % (42.0-52.0); HEMOGLOBIN 13.3 g/dl (13.5-17.5); LYMPH # 1.3 10^3/uL (1.5-5.0); LYMPH % 31.8 % (24.0-44.0); MEAN CORPUSCULAR HEMOGLOBIN 30.9 pg (27.0-33.0); MEAN CORPUSCULAR HGB CONC 35.2 g/dl (32.0-36.5); MEAN CORPUSCULAR VOLUME 87.7 fl (80.0-96.0); MONO # 0.3 10^3/uL (0.0-0.8); MONO % 6.9 % (0.0-5.0); NEUTROPHILS # 2.5 10^3/uL (1.5-8.5); NEUTROPHILS % 58.9 % (36.0-66.0); PLATELET COUNT, AUTOMATED 204 10^3/uL (150-450); RED BLOOD COUNT 4.31 10^6/uL (4.30-6.10); WHITE BLOOD COUNT 4.2 10^3/uL (4.0-10.0)
[2020-05-06 09:43] LABS: ALBUMIN 3.4 GM/DL (3.2-5.2); ALT/SGPT 22 U/L (12-78); BILIRUBIN,DIRECT < 0.1 MG/DL (0.0-0.2); BILIRUBIN,TOTAL 0.2 MG/DL (0.2-1.0); TOTAL PROTEIN 6.1 GM/DL (6.4-8.2)
[2020-05-06] MEDS ORDERED: PRED20TA PO (10:51)
--- NOTE | 2020-05-10 15:08 | REP ---
CT STUDY OF THE LUMBAR SPINE WITHOUT CONTRAST HISTORY: Severe low back pain traveling into the left leg. COMPARISON: Made with MRI study of the lumbar spine from 04/17/2018. CT imaging of the abdomen 05/04/2020. TECHNIQUE: Helical scanning is acquired and 4-mm axial images are reformatted. Coronal and sagittal MPR images are generated and reviewed. CT FINDINGS: Lumbar vertebral body heights are preserved. Alignment is normal. Disc spaces are maintained. Pedicles and posterior elements are intact. There is no evidence of spondylolysis or spondylolisthesis. At L5-S1, there is a central focal disc protrusion. This is similar to the prior study, although it appears eccentric somewhat to the left and appears to compress the left S1 root today. It is more prominent than on the MRI study of 04/17/2018. There is minimal facet hypertrophy. No bony neural foraminal narrowing. At L4-5, there is minimal diffuse disc bulging similar to the 2018 prior MRI study. No other disc protrusion or disc bulge is seen. No foraminal narrowing is observed. IMPRESSION: There is a left paracentral disc herniation at L5-S1, which is more prominent than on the prior MRI study of 04/17/2018. This appears to compress the left S1 root. Otherwise unchanged. Mild disc bulging at L4-5. MTDD
== END 2020-05-06 11:00 | disposition home or self-care (01) ==
LOC: M ED 08:03
DX: M51.27 Other intervertebral disc displacement, lumbosacral region (principal); M48.07 Spinal stenosis, lumbosacral region; I25.2 Old myocardial infarction; I10 Essential (primary) hypertension; E78.5 Hyperlipidemia, unspecified; Z87.442 Personal history of urinary calculi; Z79.899 Other long term (current) drug therapy; Z91.030 Bee allergy status

== ENCOUNTER → 2020-05-11 | Outpatient (CLI) | payer OTHER ==
[~2020-05-11] MED LIST changes: +PRED20TA PO
--- NOTE | 2020-05-12 13:28 | ECWPNPC ---
PATIENT NAME: ROSHNI PRECIADO : 1975 GENDER: MALE VISIT DATE: 05/11/2020 DISCHARGE DATE: 05/11/20 1524 VISIT LOCKED DATE TIME: PHYSICIAN: LALIT RECIO RESOURCE: LALIT RECIO REASON FOR APPOINTMENT 1. NO PLAN AT CHECK OUT. HISTORY OF PRESENT ILLNESS DEPRESSION SCREENING: BEING SEEN TODAY ON AN URGENT BASIS. HAS HAD SEVERE INCREASE IN LOW BACK PAIN AND LEFT LEG RADICULAR SYMPTOMS. WAS SEEN IN THE EMERGENCY ROOM LAST WEEK. CT OF THE LUMBAR SPINE IS SHOWING DISC PROTRUSION AND LEFT S1 NERVE COMPRESSION. DENIES INJURY. DENIES BOWEL OR BLADDER INCONTINENCE. PHQ-2 (2015 EDITION) LITTLE INTEREST OR PLEASURE IN DOING THINGS?NOT AT ALL FEELING DOWN, DEPRESSED, OR HOPELESS?NOT AT ALL TOTAL SCORE0 GENERAL: -. FALL RISK SCREENING: SCREENING :NO FALLS REPORTED IN THE LAST YEAR NONE PAIN SCREENING: PATIENT HAS A COMPLAINT OF ACUTE OR CHRONIC PAIN :YES LOCATION OF PAIN:LOW BACK, LEG(S) LEFT LEG INTENSITY OF PAIN (SCALE OF 1 TO 10):3 WHAT DOES YOUR PAIN FEEL LIKE:ACHING, CONTINOUS, THROBBING DURATION:CONTINOUS, STEADY PAIN IS INCREASED BY:ACTIVITIES PAIN IS DECREASED BY:OTHERS LAYING DOWN NURSING NOTE: -. PAIN CENTER INTAKE QUESTIONS: DO YOU HAVE A HISTORY OF MRSA? :NO DO YOU TAKE A BLOOD THINNERS? :NO DO YOU HAVE ANY BLEEDING DISORDERS? :NO ANY NEW NUMBNESS OR WEAKNESS IN YOUR LEGS OR ARMS? :NO ANY PACEMAKER,DEFIBRILLATOR, OR DORSAL COLUMN STIMULATOR? :NO DO YOU HAVE ANY RASHES OR OPEN SORES? :NO ARE YOU ALLERGIC TO IV DYE? :NO ARE YOU DIABETIC? :NO ANY NEW PROBLEMS WITH YOUR MEDICATIONS? :NO HAVE YOU RECEIVED A VACCINE IN THE PAST 30 DAYS? :YES SOMETIME THIS YEAR WITHIN THE PAST 2 MONTHS DO YOU PLAN TO RECEIVE A VACCINE IN THE NEXT 21 DAYS? :NO DO YOU NEED ANY PRESCRIPTION? :NO DO YOU TAKE ANY IMMUNOSUPPRESSIVE MEDICATIONS? :NO IS THERE A CHANCE YOU COULD BE ? :NO ARE YOU BREAST FEEDING? :NO CURRENT MEDICATIONS TAKING MAGNESIUM OXIDE 400 MG CAPSULE ORALLY DAILY, NOTES: 6/2 PM TAKING CARAFATE 1 GM TABLET 1 TABLET ORALLY FOUR TIMES DAILY, NOTES: 2 WEEKS TAKING CETIRIZINE HCL 10 MG TABLET 1 TABLET ORALLY ONCE A DAY, NOTES: 6/2 PM TAKING EXCEDRIN TENSION HEADACHE 500-65 MG TABLET DIRECTED ORALLY , NOTES: 2 DAYS TAKING MECLIZINE HCL 25 MG TABLET 1 TABLET NEEDED ORALLY ONCE A DAY, NOTES: 2 MONTHS TAKING MULTI COMPLETE CAPSULE 1 CAP ORALLY DAILY, NOTES: 12/29 PM TAKING NEXIUM 40 MG CAPSULE DELAYED RELEASE 1 CAPSULE ORALLY BID, NOTES: 12/31 8AM TAKING PATANASE 0.6 % SOLUTION 2 SPRAYS NASALLY TWICE A DAY, NOTES: 12/29 PM TAKING VITAMIN D3 3000 UNIT TABLET 1 TABLET ORALLY ONCE A DAY, NOTES: 12/31 AM TAKING GENTEAL 0.3 % SOLUTION 1 DROP INTO AFFECTED EYE NEEDED OPHTHALMIC ONCE A DAY, NOTES: 2 DAYS AGO TAKING RIBOFLAVIN 100 MG TABLET 2 TABLET WITH A MEAL ORALLY TWICE DAILY, NOTES: 12/31 AM TAKING VITAMIN D (ERGOCALCIFEROL) 71828 UNIT CAPSULE 1 CAPSULE ORALLY WEEKLY, NOTES: SUNDAY TAKING METOPROLOL SUCCINATE 50 MG TABLET EXTENDED RELEASE ORALLY DAILY, NOTES: 12/31 9AM TAKING FENOFIBRATE 54 MG TABLET 1 TABLET WITH A MEAL ORALLY ONCE A DAY, NOTES: 12/31 9AM TAKING ROPINIROLE HCL 1 MG TABLET 1 TAB ORALLY THREE TIMES DAILY, NOTES: 2 DAYS AGO TAKING PROBIOTIC - CAPSULE ORALLY DAILY, NOTES: 12/30 2PM TAKING RANEXA 500 MG TABLET EXTENDED RELEASE 12 HOUR 1 TABLET ORALLY TWICE A DAY, NOTES: 12/31 9AM TAKING DICYCLOMINE HCL 10 MG CAPSULE 1 CAP ORALLY THREE TIMES A DAY, NOTES: 12/31 AM TAKING ZONISAMIDE 25 MG CAPSULE 2 CAPSULES ORALLY TWICE A DAY, NOTES: 12/31 AM TAKING FISH OIL 1000 MG CAPSULE 2 CAPSULES ORALLY BID, NOTES: 2 DAYS AGO TAKING ZOLMITRIPTAN 5 MG TABLET 1 TABLET NEEDED ONE TIME ORALLY ONCE A DAY, NOTES: 2 DAYS AGO TAKING EPINEPHRINE HCL (ANAPHYLAXIS) 1 MG/ML SOLUTION INJECTION TAKING BACLOFEN 10 MG TABLET 1 TABLET WITH FOOD OR MILK ORALLY THREE TIMES A DAY, NOTES: 12/31 AM TAKING ZOMIG ZMT 5 MG TABLET DISPERSIBLE DIRECTED ORALLY , NOTES: 12/31 AM TAKING DOCUSATE SODIUM 100 MG CAPSULE 1 CAPSULE NEEDED ORALLY BID, NOTES: 12/31 AM TAKING CIALIS 5MG TABLET 1 TABLET ORALLY ONCE A DAY, NOTES: 2 DAYS AGO TAKING RITALIN 20 MG TABLET 1 TABLET ON AN EMPTY STOMACH ORALLY TWICE A DAY, NOTES: 12/31 AM TAKING CPAP MACHINE DIRECTED , NOTES: USES OCCASSIONALLY TAKING EXTRA STRENGTH ACETAMINOPHEN , NOTES: 500 MG TWICE A DAY TAKING ASPIRIN 81 81 MG TABLET CHEWABLE 1 TABLET ORALLY ONCE A DAY, NOTES: 6/3 2PM TAKING ALBUTEROL SULFATE HFA 108 (90 BASE) MCG/ACT AEROSOL SOLUTION 2 PUFFS NEEDED INHALATION EVERY 4 HRS, NOTES: 6/3 2PM TAKING FIBER LAXATIVE 625 MG TABLET 1 TABLET NEEDED ORALLY FOUR TIMES A DAY, NOTES: 6/3 2PM TAKING LIDODERM 5 % PATCH 1 PATCH TO INTACT SKIN REMOVE AFTER 12 HOURS EXTERNALLY ONCE A DAY, NOTES: MONTH TAKING TRAMADOL HCL 50 MG TABLET 2 ORALLY Q8H PRN MDD6 #100 TAB SHOULD LAST 30 DAYS, NOTES: 6/4 AM TAKING LIPITOR 20 MG TABLET 1 TABLET ORALLY ONCE A DAY TAKING PREDNISONE 1 TAB ORAL , NOTES: 10MG AND WEANING DOWN TAKING ADVAIR DISKUS 100-50 MCG/DOSE AEROSOL POWDER BREATH ACTIVATED 1 PUFF INHALATION TWICE A DAY NOT-TAKING SIMVASTATIN 20 20MG TABLET DIRECTED ORAL DAILY, NOTES: 6/2 PM NOT-TAKING ALBUTEROL SULFATE (2.5 MG/3ML) 0.083% NEBULIZATION SOLUTION 3 ML NEEDED INHALATION THREE TIMES A DAY NOT-TAKING METHYLPHENIDATE HCL 5 MG TABLET 1 TABLET ON AN EMPTY STOMACH ORALLY TWICE A DAY NOT-TAKING HYDROXYZINE PAMOATE 25 MG CAPSULE 1 CAPSULE NEEDED ORALLY BID NOT-TAKING VESICARE 10 MG TABLET 1 TABLET ORALLY ONCE A DAY NOT-TAKING METAXALONE 800 MG TABLET 1 TABLET ORALLY THREE TIMES A DAY NOT-TAKING CLONAZEPAM 0.5 MG TABLET 1 TABLET AT BEDTIME ORALLY ONLY NEEDED NOT-TAKING RITALIN 20MG TABLET 1 TABLET ORALLY TWICE DAILY NOT-TAKING REQUIP 1 MG TABLET 1 1/2 TABLET ORALLY TWICE A DAY NOT-TAKING ANDROGEL PUMP 12.5 MG/ACT (1%) GEL TRANSDERMAL NOT-TAKING MELOXICAM 15 MG TABLET 1 TABLET ORALLY ONCE A DAY NOT-TAKING CEFDINIR 300 MG CAPSULE 1 CAPSULE ORALLY EVERY 12 HRS NOT-TAKING PREDNISONE 10 MG TABLET 1 TABLET ORALLY ONCE A DAY NOT-TAKING HYOSCYAMINE SULFATE 0.125 MG TABLET 1 TABLET BEFORE MEALS NEEDED ORALLY EVERY 4 HRS NOT-TAKING LOVAZA 1 GM CAPSULE 2 CAPSULES ORALLY TWICE A DAY NOT-TAKING CYMBALTA 30 MG CAPSULE DELAYED RELEASE PARTICLES 1 CAPSULE ORALLY DAILY NOT-TAKING LOPERAMIDE HCL 2 MG CAPSULE 1 CAPSULE ORALLY 8 TIME(S) A DAY NOT-TAKING NITRO-BID 2 % OINTMENT DIRECTED TRANSDERMAL NOT-TAKING HYDROCODONE-ACETAMINOPHEN 5-325 MG TABLET 1 TABLET NEEDED ORALLY EVERY 6 HRS NOT-TAKING PAROXETINE HCL 40 MG TABLET 1 TABLET IN THE MORNING ORALLY ONCE A DAY MEDICATION LIST REVIEWED AND RECONCILED WITH THE PATIENT PAST MEDICAL HISTORY PTSD ALLERGIC RHINITIS ANXIETY ASTHMA 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 FLAT FOOT INSOMNIA 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 DEPRESSION 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 4 SON(S) , 2 DAUGHTER(S) - HEALTHY. FATHER HAD CYSTS ON KIDNEY'S PRIOR TO . SOCIAL HISTORY GENERAL: TOBACCO USE ARE YOU A:NEVER SMOKER LATEX QUESTIONNAIRE LATEX ALLERGY : HAVE YOU EVER DEVELOPED ANY TYPE OF REACTION AFTER HANDLING LATEX PRODUCTS SUCH RUBBER GLOVES, CONDOMS, DIAPHRAGMS, BALLOONS, SOCKS, OR UNDERWEAR?NO LATEX ALLERGY : HAVE YOU EVER DEVELOPED ANY TYPE OF REACTION DURING OR AFTER DENTAL APPOINTMENT, VAGINAL/RECTAL EXAMINATION, SURGICAL PROCEDURE, OR ANY OTHER EXPOSURE?NO LATEX RISK : HAVE YOU EVER HAD ANY DIFFICULTY BREATHING OR HIVES AFTER EATING OR HANDLING ANY FRUITS, OR VEGETABLES; SUCH KIWI, BANANAS, STONE FRUITS, OR CHESTNUTSNO LATEX RISK : DO YOU HAVE A PREVIOUS PERSONAL HISTORY OF MORE THAN NINE SURGERIES, SPINA BIFIDA, OR REPEATED CATHERIZATIONS? NO LATEX RISK : ARE YOU FREQUENTLY EXPOSED TO LATEX PRODUCTS IN YOUR OCCUPATION?NO NOT SURE IF THEY USE LATEX GLOVES AT WORK OR NOT DATE ASKED : 05/11/2020 ALCOHOL SCREENING POINTS: 1, INTERPRETATION: NEGATIVE. RECREATIONAL DRUG USE DENIES. CAFFEINE 1-2/DAY. SEXUAL HX HAD SEX IN THE LAST 12 MONTHS (VAGINAL, ORAL, OR ANAL)?: YES, WITH: WOMEN ONLY, USE PROTECTION?: YES, HOW OFTEN?: ALL OF THE TIME, HAVE YOU EVER HAD AN STD?: NO. ORIENTAL ORTHODOX NO ISLAM BELIEFS THAT WOULD IMPACT HEALTH CARE. LANGUAGE SWISS. EDUCATION LEVEL OF EDUCATION:NOT FINISHED COLLEGE LEARNING BARRIERS / SPECIAL NEEDS CHANGE FROM LAST VISIT?NO 01/19/2020 BARRIERS TO LEARNING?NO HEARING IMPAIRED?NO VISION IMPAIRED?NO COGNITIVELY IMPAIRED?NO READINESS TO LEARN?YES LEARNING PREFERENCES?YES :DEMONSTRATION/VERBAL INSTRUCTION, OTHER (PLEASE COMMENT) HANDS ON LEARNING CAPABILITIES PRESENT?YES EMOTIONAL BARRIERS?NO SPECIAL DEVICES?NO MANAGER SCHOOL NEEDED?NO DOMESTIC VIOLENCE DO YOU FEEL SAFE IN YOUR ENVIRONMENT?YES DIET: REGULAR. EXERCISE: DAILY. MARITAL STATUS: . 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 PAIN CLINIC PFS, CLERGY, PUBLIC HEALTH REFERRALS HAS THE PATIENT BEEN EDUCATED REGARDING HIS/HER PLAN OF CARE?YES HAS THE PATIENT BEEN EDUCATED REGARDING PAIN, THE RISK FOR PAIN, THE IMPORTANCE OF EFFECTIVE PAIN MANAGEMENT, AND THE PAIN ASSESSMENT PROCESS?YES ADVANCE DIRECTIVE ADVANCE DIRECTIVE DISCUSSED WITH PATIENT:YES 01/19/2020 PT DOES NOT HAVE ANY ADVANCED DIRECTIVES AND HE DECLINES INFORMATION ON HCP AT THIS TIME. HOSPITALIZATION/MAJOR DIAGNOSTIC PROCEDURE CHOLITIS 04/2011 REVIEW OF SYSTEMS CONSTITUTIONAL: ANY RECENT FEVER NO . CHILLS NO . WEIGHT CHANGE OF UNKNOWN REASONS NO . GASTROENTEROLOGY: NEW UNEXPLAINABLE CHANGES IN BOWEL CONTROL NO . CONSTIPATION NO . GENITOURINARY: ANY NEW CHANGE IN BLADDER CONTROL? FOLLOWING WITH UROLOGY FOR KIDNEY STONES 1 MONTH AGO . NEUROLOGY: NEW ONSET DIZZINESS OR NEUROLOGICAL CHANGES NOT MENTIONED NO . NEW NUMBNESS OR PAIN PATTERNS NOT MENTIONED AND PERTINENT TO TODAY'S VISIT NO . CARDIOLOGY: NEW CHEST PRESSURE NO . NEW CHEST PAIN NO . RESPIRATORY: UNEXPLAINABLE COUGH NO . NEW SHORTNESS OF BREATH NO . VITAL SIGNS WT 218.0 LBS, HT 5'5'', BMI 36.27 INDEX, BP 122/75 MM HG, HR 66 /MIN, RR 18 /MIN, TEMP 97.0 F, OXYGEN SAT % 97%, SAFE IN ENV? (Y/N) YES, [place] [id number], REVIEWED BY: BRANDYN. EXAMINATION GENERAL EXAMINATION: GENERAL AWAKE,ALERT ,PLEASANT . PSYCH AFFECT NORMAL . LUNGS: LUNG [place] ARE CLEAR TO AUSCULTATION BILATERALLY. GOOD MOVEMENT OF AIR . HEART: S1, S2 IN A REGULAR RATE AND RHYTHM. NO SIGNIFICANT MURMURS, RUBS OR GALLOPS NOTED . LUMBAR:PALPATION: + FOR PAIN OVER L/S SPINE. + FOR PAIN OVER L/S PARASPINALS SLE: POSITIVE OVER LEFT LEG AT 45 DEGREES. DIAGNOSTIC TESTS REVIEWEDCT LS-SPINE 2019 . ASSESSMENTS PROTRUSION OF INTERVERTEBRAL DISC OF LUMBOSACRAL REGION - M51.27 (PRIMARY) LUMBOSACRAL RADICULOPATHY - M54.17 TREATMENT PROTRUSION OF INTERVERTEBRAL DISC OF LUMBOSACRAL REGION NOTES: LEFT L4-5 LESI WITH IV SEDATION. PREVENTIVE MEDICINE (MALE) PREVENTIVE WELLNESS PLAN: TODAY'S VISIT PATIENT PRESENTS TODAY FOR: LEFT L4-5 LESI WITH IV SEDATION WILL BE SEEN BACK POST PROCEDURE DISPOSITION & COMMUNICATION FOLLOW UP POST PROCEDURE/PRE-SEDATE APPOINTMENT WITH DR. CANO (REASON: LEFT L4-5 LESI WITH IV SEDATION) ELECTRONICALLY SIGNED BY RUTHIE JOHNSON ON 05/12/2020 AT 12:58 PM EDT DISCLAIMER : THIS IS A VISIT SUMMARY EXTRACTED FROM THE [employer] CHART. IT IS NOT A COPY OF THE [employer] PROGRESS NOTE. DAYANA
== END ==
LOC: M PAIN 14:15
PROVIDERS: ATTEND Nurse Practitioner Family
DX: M51.27 Other intervertebral disc displacement, lumbosacral region (principal); M54.17 Radiculopathy, lumbosacral region; F43.10 Post-traumatic stress disorder, unspecified; F41.9 Anxiety disorder, unspecified; J45.909 Unspecified asthma, uncomplicated; F32.9 Major depressive disorder, single episode, unspecified; E78.5 Hyperlipidemia, unspecified; E55.9 Vitamin D deficiency, unspecified; N52.9 Male erectile dysfunction, unspecified; G25.81 Restless legs syndrome; Z79.82 Long term (current) use of aspirin; Z79.899 Other long term (current) drug therapy; Z79.891 Long term (current) use of opiate analgesic

== ENCOUNTER → 2020-06-11 | Outpatient (CLI) | payer OTHER ==
--- NOTE | 2020-06-15 02:52 | ECWPNPC ---
PATIENT NAME: ROSHNI PRECIADO : 1975 GENDER: MALE VISIT DATE: 06/11/2020 DISCHARGE DATE: 06/11/20 0000 VISIT LOCKED DATE TIME: PHYSICIAN: BRADY CANO MD RESOURCE: BRADY CANO MD REASON FOR APPOINTMENT 1. PRE-SEDATE FOR LEFT L4-5 LESI WITH IV SEDATION HISTORY OF PRESENT ILLNESS GENERAL: 44-YEAR-OLD MALE PATIENT WITH A HISTORY OF CHRONIC LOW BACK AND MAINLY LEFT LEG PAIN. THE PATIENT HAS BEEN SUFFERING FROM THIS CONDITION FOR OVER A YEAR. THE PATIENT DESCRIBES THE PAIN BURNING, STABBING, SHOOTING AND THROBBING WITH A PAIN SCORE RANGING FROM 2-9/10 DEPENDING ON PHYSICAL ACTIVITY. THIS PAIN INCREASES WITH ACTIVITIES. THIS PAIN IS AFFECTING HIS ADDITIVES OF DAILY LIVING SUCH WALKING AROUND, CLEANING HIS HOUSE AND GROCERY SHOPPING. THE PATIENT HAS TRIED MEDICATION MANAGEMENT WITHOUT SIGNIFICANT RELIEF. PATIENT DENIES UNEXPLAINABLE WEIGHT LOSS, FEVER, CHILLS, NEW CHANGES ON URINARY OR BOWEL CONTROL. FALL RISK SCREENING: SCREENING :NO FALLS REPORTED IN THE LAST YEAR PAIN SCREENING: PATIENT HAS A COMPLAINT OF ACUTE OR CHRONIC PAIN :YES LOCATION OF PAIN:LOW BACK, LEG(S) LEFT LEG > RIGHT LEG INTENSITY OF PAIN (SCALE OF 1 TO 10):2 WHAT DOES YOUR PAIN FEEL LIKE:BURNING, STABBING, THROBBING, SHOOTING, OTHER TIGHTNESS DURATION:CONTINOUS, CONSTANT, AWAKENS FROM SLEEP PAIN IS INCREASED BY:ACTIVITIES, PROLONGED STANDING, OTHERS WALKING PAIN IS DECREASED BY: STATES NOTHING REALLY HELPS DECREASE THE PAIN. NURSING NOTE: -. PAIN CENTER INTAKE QUESTIONS: DO YOU HAVE A HISTORY OF MRSA? :NO DO YOU TAKE A BLOOD THINNERS? :NO DO YOU HAVE ANY BLEEDING DISORDERS? :NO ANY NEW NUMBNESS OR WEAKNESS IN YOUR LEGS OR ARMS? :NO ANY PACEMAKER,DEFIBRILLATOR, OR DORSAL COLUMN STIMULATOR? :NO DO YOU HAVE ANY RASHES OR OPEN SORES? :NO ARE YOU ALLERGIC TO IV DYE? :NO ARE YOU DIABETIC? :NO ANY NEW PROBLEMS WITH YOUR MEDICATIONS? :NO HAVE YOU RECEIVED A VACCINE IN THE PAST 30 DAYS? :NO DO YOU PLAN TO RECEIVE A VACCINE IN THE NEXT 21 DAYS? :NO DO YOU NEED ANY PRESCRIPTION? :NO DO YOU TAKE ANY IMMUNOSUPPRESSIVE MEDICATIONS? :NO IS THERE A CHANCE YOU COULD BE ? :NO ARE YOU BREAST FEEDING? :NO CURRENT MEDICATIONS TAKING MAGNESIUM OXIDE 400 MG CAPSULE ORALLY DAILY TAKING CARAFATE 1 GM TABLET 1 TABLET ORALLY FOUR TIMES DAILY TAKING CETIRIZINE HCL 10 MG TABLET 1 TABLET ORALLY ONCE A DAY TAKING EXCEDRIN TENSION HEADACHE 500-65 MG TABLET DIRECTED ORALLY TAKING MECLIZINE HCL 25 MG TABLET 1 TABLET NEEDED ORALLY ONCE A DAY TAKING MULTI COMPLETE CAPSULE 1 CAP ORALLY DAILY TAKING NEXIUM 40 MG CAPSULE DELAYED RELEASE 1 CAPSULE ORALLY BID TAKING PATANASE 0.6 % SOLUTION 2 SPRAYS NASALLY TWICE A DAY TAKING VITAMIN D3 3000 UNIT TABLET 1 TABLET ORALLY ONCE A DAY TAKING GENTEAL 0.3 % SOLUTION 1 DROP INTO AFFECTED EYE NEEDED OPHTHALMIC ONCE A DAY TAKING RIBOFLAVIN 100 MG TABLET 2 TABLET WITH A MEAL ORALLY TWICE DAILY TAKING VITAMIN D (ERGOCALCIFEROL) 96887 UNIT CAPSULE 1 CAPSULE ORALLY WEEKLY TAKING METOPROLOL SUCCINATE 50 MG TABLET EXTENDED RELEASE ORALLY DAILY TAKING FENOFIBRATE 54 MG TABLET 1 TABLET WITH A MEAL ORALLY ONCE A DAY TAKING ROPINIROLE HCL 1 MG TABLET 1 TAB ORALLY THREE TIMES DAILY TAKING PROBIOTIC - CAPSULE ORALLY DAILY TAKING RANEXA 500 MG TABLET EXTENDED RELEASE 12 HOUR 1 TABLET ORALLY TWICE A DAY TAKING DICYCLOMINE HCL 10 MG CAPSULE 1 CAP ORALLY THREE TIMES A DAY TAKING ZONISAMIDE 50 MG CAPSULE 1 CAPSULE IN AM, 2 CAPSULES AT BEDTIME ORALLY TWICE A DAY TAKING FISH OIL 1000 MG CAPSULE 2 CAPSULES ORALLY BID TAKING ZOLMITRIPTAN 5 MG TABLET 1 TABLET NEEDED ONE TIME ORALLY ONCE A DAY TAKING EPINEPHRINE HCL (ANAPHYLAXIS) 1 MG/ML SOLUTION INJECTION TAKING BACLOFEN 10 MG TABLET 1 TABLET WITH FOOD OR MILK ORALLY THREE TIMES A DAY TAKING ZOMIG ZMT 5 MG TABLET DISPERSIBLE DIRECTED ORALLY PRN FOR MIGRAINE TAKING DOCUSATE SODIUM 100 MG CAPSULE 1 CAPSULE NEEDED ORALLY BID TAKING CIALIS 5MG TABLET 1 TABLET ORALLY ONCE A DAY, NOTES: 2 DAYS AGO TAKING RITALIN 20 MG TABLET 1 TABLET ON AN EMPTY STOMACH ORALLY TWICE A DAY TAKING CPAP MACHINE DIRECTED , NOTES: USES OCCASSIONALLY TAKING EXTRA STRENGTH ACETAMINOPHEN , NOTES: 500 MG TWICE A DAY TAKING ASPIRIN 81 81 MG TABLET CHEWABLE 1 TABLET ORALLY ONCE A DAY TAKING ALBUTEROL SULFATE HFA 108 (90 BASE) MCG/ACT AEROSOL SOLUTION 2 PUFFS NEEDED INHALATION EVERY 4 HRS TAKING FIBER LAXATIVE 625 MG TABLET 1 TABLET NEEDED ORALLY FOUR TIMES A DAY TAKING LIDODERM 5 % PATCH 1 PATCH TO INTACT SKIN REMOVE AFTER 12 HOURS EXTERNALLY ONCE A DAY TAKING TRAMADOL HCL 50 MG TABLET 2 ORALLY Q8H PRN MDD6 #100 TAB SHOULD LAST 30 DAYS TAKING LIPITOR 20 MG TABLET 1 TABLET ORALLY ONCE A DAY TAKING ADVAIR DISKUS 100-50 MCG/DOSE AEROSOL POWDER BREATH ACTIVATED 1 PUFF INHALATION TWICE A DAY NOT-TAKING PREDNISONE 1 TAB ORAL , NOTES: 10MG AND WEANING DOWN NOT-TAKING SIMVASTATIN 20 20MG TABLET DIRECTED ORAL DAILY, NOTES: 6/2 PM NOT-TAKING ALBUTEROL SULFATE (2.5 MG/3ML) 0.083% NEBULIZATION SOLUTION 3 ML NEEDED INHALATION THREE TIMES A DAY NOT-TAKING METHYLPHENIDATE HCL 5 MG TABLET 1 TABLET ON AN EMPTY STOMACH ORALLY TWICE A DAY NOT-TAKING HYDROXYZINE PAMOATE 25 MG CAPSULE 1 CAPSULE NEEDED ORALLY BID NOT-TAKING VESICARE 10 MG TABLET 1 TABLET ORALLY ONCE A DAY NOT-TAKING METAXALONE 800 MG TABLET 1 TABLET ORALLY THREE TIMES A DAY NOT-TAKING CLONAZEPAM 0.5 MG TABLET 1 TABLET AT BEDTIME ORALLY ONLY NEEDED NOT-TAKING RITALIN 20MG TABLET 1 TABLET ORALLY TWICE DAILY NOT-TAKING REQUIP 1 MG TABLET 1 1/2 TABLET ORALLY TWICE A DAY NOT-TAKING ANDROGEL PUMP 12.5 MG/ACT (1%) GEL TRANSDERMAL NOT-TAKING MELOXICAM 15 MG TABLET 1 TABLET ORALLY ONCE A DAY NOT-TAKING CEFDINIR 300 MG CAPSULE 1 CAPSULE ORALLY EVERY 12 HRS NOT-TAKING PREDNISONE 10 MG TABLET 1 TABLET ORALLY ONCE A DAY NOT-TAKING HYOSCYAMINE SULFATE 0.125 MG TABLET 1 TABLET BEFORE MEALS NEEDED ORALLY EVERY 4 HRS NOT-TAKING LOVAZA 1 GM CAPSULE 2 CAPSULES ORALLY TWICE A DAY NOT-TAKING CYMBALTA 30 MG CAPSULE DELAYED RELEASE PARTICLES 1 CAPSULE ORALLY DAILY NOT-TAKING LOPERAMIDE HCL 2 MG CAPSULE 1 CAPSULE ORALLY 8 TIME(S) A DAY NOT-TAKING NITRO-BID 2 % OINTMENT DIRECTED TRANSDERMAL NOT-TAKING HYDROCODONE-ACETAMINOPHEN 5-325 MG TABLET 1 TABLET NEEDED ORALLY EVERY 6 HRS NOT-TAKING PAROXETINE HCL 40 MG TABLET 1 TABLET IN THE MORNING ORALLY ONCE A DAY MEDICATION LIST REVIEWED AND RECONCILED WITH THE PATIENT PAST MEDICAL HISTORY PTSD ALLERGIC RHINITIS ANXIETY ASTHMA 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 FLAT FOOT INSOMNIA 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 DEPRESSION 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 4 SON(S) , 2 DAUGHTER(S) - HEALTHY. FATHER HAD CYSTS ON KIDNEY'S PRIOR TO . SOCIAL HISTORY GENERAL: TOBACCO USE ARE YOU A:NEVER SMOKER LATEX QUESTIONNAIRE LATEX ALLERGY : HAVE YOU EVER DEVELOPED ANY TYPE OF REACTION AFTER HANDLING LATEX PRODUCTS SUCH RUBBER GLOVES, CONDOMS, DIAPHRAGMS, BALLOONS, SOCKS, OR UNDERWEAR?NO LATEX ALLERGY : HAVE YOU EVER DEVELOPED ANY TYPE OF REACTION DURING OR AFTER DENTAL APPOINTMENT, VAGINAL/RECTAL EXAMINATION, SURGICAL PROCEDURE, OR ANY OTHER EXPOSURE?NO LATEX RISK : HAVE YOU EVER HAD ANY DIFFICULTY BREATHING OR HIVES AFTER EATING OR HANDLING ANY FRUITS, OR VEGETABLES; SUCH KIWI, BANANAS, STONE FRUITS, OR CHESTNUTSNO LATEX RISK : DO YOU HAVE A PREVIOUS PERSONAL HISTORY OF MORE THAN NINE SURGERIES, SPINA BIFIDA, OR REPEATED CATHERIZATIONS? NO LATEX RISK : ARE YOU FREQUENTLY EXPOSED TO LATEX PRODUCTS IN YOUR OCCUPATION?NO NOT SURE IF THEY USE LATEX GLOVES AT WORK OR NOT DATE ASKED : 05/11/2020 ALCOHOL SCREENING POINTS: 1, INTERPRETATION: NEGATIVE. RECREATIONAL DRUG USE DENIES. CAFFEINE 1-2/DAY. SEXUAL HX HAD SEX IN THE LAST 12 MONTHS (VAGINAL, ORAL, OR ANAL)?: YES, WITH: WOMEN ONLY, USE PROTECTION?: YES, HOW OFTEN?: ALL OF THE TIME, HAVE YOU EVER HAD AN STD?: NO. UATSDIN NO SPIRITISM BELIEFS THAT WOULD IMPACT HEALTH CARE. LANGUAGE URDU. EDUCATION LEVEL OF EDUCATION:NOT FINISHED COLLEGE LEARNING BARRIERS / SPECIAL NEEDS CHANGE FROM LAST VISIT?NO BARRIERS TO LEARNING?NO HEARING IMPAIRED?NO VISION IMPAIRED?NO COGNITIVELY IMPAIRED?NO READINESS TO LEARN?YES LEARNING PREFERENCES?YES :DEMONSTRATION/VERBAL INSTRUCTION, OTHER (PLEASE COMMENT) HANDS ON LEARNING CAPABILITIES PRESENT?YES EMOTIONAL BARRIERS?NO SPECIAL DEVICES?NO CLAM DREDGER NEEDED?NO DOMESTIC VIOLENCE DO YOU FEEL SAFE IN YOUR ENVIRONMENT?YES DIET: REGULAR. EXERCISE: DAILY. MARITAL STATUS: . 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 PAIN CLINIC PFS, CLERGY, PUBLIC HEALTH REFERRALS HAS THE PATIENT BEEN EDUCATED REGARDING HIS/HER PLAN OF CARE?YES HAS THE PATIENT BEEN EDUCATED REGARDING PAIN, THE RISK FOR PAIN, THE IMPORTANCE OF EFFECTIVE PAIN MANAGEMENT, AND THE PAIN ASSESSMENT PROCESS?YES ADVANCE DIRECTIVE ADVANCE DIRECTIVE DISCUSSED WITH PATIENT:YES PT DOES NOT HAVE ANY ADVANCED DIRECTIVES AND HE DECLINES INFORMATION ON HCP AT THIS TIME. HOSPITALIZATION/MAJOR DIAGNOSTIC PROCEDURE CHOLITIS 04/2011 REVIEW OF SYSTEMS GLAUCOMA: NOTHYROID DISEASE: NOHYPERTENSION: YESHEART DISEASE: NOLUNG DISEASE: HISTORY OF ASTHMADIABETES: NOGI DISEASE: NO LIVER DISEASE: NO KIDNEY DISEASE: YES HISTORY OF KIDNEY STONESSTERIOD USE: NONEUROLOGICAL DISEASE: NOBACK PROBLEMS: NOEXTREMITIES: NOGENITOURINARY: NOBLEEDING DISORDER: NOASA CLASS: IIAIRWAY CLASS: II. VITAL SIGNS WT 215.8 LBS, HT 5'5'', BMI 35.91 INDEX, BP 122/72 MM HG, HR 63 /MIN, RR 16 /MIN, TEMP 96.7 F, OXYGEN SAT % 98%, SAFE IN ENV? (Y/N) Y, REVIEWED BY: JSJ. NICK RN. EXAMINATION GENERAL EXAMINATION: THE PATIENT IS ALERT, ORIENTED TIMES THREE AND COOPERATIVE. HEART SHOWS REGULAR RHYTHM, NO MURMURS AND NO GALLOPS. LUNGS ARE CLEAR TO AUSCULTATION. THE LEFT LEG IS WEAKER THAN THE RIGHT LEG ON FLEXION AND EXTENSION. STRAIGHT LEG RAISE IS POSITIVE FOR RADICULOPATHY ON THE LEFT AT 40 DEGREES. MRI OF THE LUMBAR SPINE IS SHOWING BULGING DISC AT L4-L5 AND L5-S1. ASSESSMENTS INTERVERTEBRAL DISC DISORDERS WITH RADICULOPATHY, LUMBAR REGION - M51.16 (PRIMARY) TREATMENT INTERVERTEBRAL DISC DISORDERS WITH RADICULOPATHY, LUMBAR REGION IV LACTATED RINGER'S AT KVO (ORDERED FOR 08/11/2019) OXYGEN AT 2 LITERS PER NASAL CANNULA (ORDERED FOR 08/11/2019) MEDICATION: VERSED 1MG IV (MIDAZOLAM) (ORDERED FOR 08/11/2019) MEDICATION: FENTANYL CITRATE 50MCG IV (ORDERED FOR 08/11/2019) NOTES: 1617 PRINTED AND REVIEWED INFORMATION ON LUMBAR EPIDURAL STEROID INJECTION PROCEDURE WITH PATIENT. ALSO REVIEWED PRE-PROCEDURE INSTRUCTIONS. PATIENT VERBALIZED AN UNDERSTANDING. Marco ROMERO RN. CLINICAL NOTES: I DISCUSSED ALTERNATIVES WITH MR. PRECIADO. WE ARE GOING TO MOVE FORWARD WITH THE LUMBAR EPIDURAL STEROID INJECTION AT L4-L5 TO ADDRESS THE PAIN IN THE BACK AND THE LEG WITH IV SEDATION DUE TO ANXIETY AND DISCOMFORT ASSOCIATED WITH THE PROCEDURE. THE PATIENT REPORTS UNDERSTANDING AND AGREES WITH THE PLAN. I, DAVID BARRETO, DOCUMENTED THE ABOVE INFORMATION ACTING A SCRIBE FOR DR. CANO. I HAVE REVIEWED THE ABOVE DOCUMENT, WRITTEN BY DAVID BARRETO, FOLDER STITCHER OPERATOR, AND I VERIFY THAT IT IS ACCURATE. PROCEDURE CODES FA211 ESTABILISHED PATIENT [facility] CHARGE 22029 OFFICE/OUTPATIENT VISIT EST DISPOSITION & COMMUNICATION FOLLOW UP ALREADY BOOKED (REASON: LESI L4-L5 WITH IV SEDATION ) ELECTRONICALLY SIGNED BY BRADY CANO MD, MD ON 06/14/2020 AT 03:47 PM EST DISCLAIMER : THIS IS A VISIT SUMMARY EXTRACTED FROM THE [employer] CHART. IT IS NOT A COPY OF THE [employer] PROGRESS NOTE. MTDRob
== END ==
LOC: M PAIN 14:45
PROVIDERS: ATTEND Anesthesiology
DX: M51.16 Intervertebral disc disorders with radiculopathy, lumbar region (principal); F43.10 Post-traumatic stress disorder, unspecified; F41.9 Anxiety disorder, unspecified; J45.909 Unspecified asthma, uncomplicated; F32.9 Major depressive disorder, single episode, unspecified; E78.5 Hyperlipidemia, unspecified; E55.9 Vitamin D deficiency, unspecified; G25.81 Restless legs syndrome; E29.1 Testicular hypofunction; Z79.82 Long term (current) use of aspirin; Z79.899 Other long term (current) drug therapy; Z91.030 Bee allergy status

== ENCOUNTER → 2020-06-13 | Outpatient (CLI) | payer OTHER | LOC: M LABSMTC 11:54 | PROVIDERS: ATTEND Anesthesiology | DX: Z01.812 Encounter for preprocedural laboratory examination (principal); Z20.828 Contact with and (suspected) exposure to other viral communicable diseases ==

== ENCOUNTER → 2020-06-17 | Outpatient (CLI) | payer OTHER ==
[~2020-06-17] MED LIST changes: +ISOVUE-M 300 61% 15ML VIAL As Ordered ONE; +LIDOCAINE 1% SDV 30ML VIAL As Ordered ONE; +MIDAZOLAM INJ 2MG/2ML VIAL (J2250 PER 1MG) As Ordered ONE; +fentaNYL 100 MCG/2 ML INJECTION (J3010) As Ordered ONE; +methylPREDNISolone SUSP 40MG/ML 1ML VIAL (DEPO MEDROL) As Ordered ONE
--- NOTE | 2020-06-17 13:16 | REP ---
INDICATION: LUMBAR EPIDURAL STEROID INJECTION L4-5. Pain COMPARISON: None. TECHNIQUE: Single view lower lumbar spine performed during epidural injection. FINDINGS: A needle is seen at the L4-5 level. IMPRESSION: 14 seconds fluoroscopy time utilized. <Electronically signed by Akbar Frazier > 06/17/20 1948
--- NOTE | 2020-06-18 02:34 | ECWPNPC ---
PATIENT NAME: ROSHNI PRECIADO : 1975 GENDER: MALE VISIT DATE: 06/17/2020 DISCHARGE DATE: 06/17/20 1029 VISIT LOCKED DATE TIME: PHYSICIAN: BRADY CANO MD RESOURCE: BRADY CANO MD REASON FOR APPOINTMENT 1. LEFT L4-5 LESI WITH IV SEDATION HISTORY OF PRESENT ILLNESS GENERAL: -. FALL RISK SCREENING: SCREENING :NO FALLS REPORTED IN THE LAST YEAR PAIN SCREENING: PATIENT HAS A COMPLAINT OF ACUTE OR CHRONIC PAIN :YES LOCATION OF PAIN:LOW BACK, LEG(S) LEFT LEG INTENSITY OF PAIN (SCALE OF 1 TO 10):8 WHAT DOES YOUR PAIN FEEL LIKE:ACHING, BURNING, CONTINOUS, SHARP, STABBING, TENDER, THROBBING, SORE, SHOOTING DURATION:CONTINOUS PAIN IS INCREASED BY:ACTIVITIES PAIN IS DECREASED BY:USE OF PAIN MEDICATIONS NURSING NOTE: -. PAIN CENTER INTAKE QUESTIONS: DO YOU HAVE A HISTORY OF MRSA? :NO DO YOU TAKE A BLOOD THINNERS? :NO DO YOU HAVE ANY BLEEDING DISORDERS? :NO ANY NEW NUMBNESS OR WEAKNESS IN YOUR LEGS OR ARMS? :NO ANY PACEMAKER,DEFIBRILLATOR, OR DORSAL COLUMN STIMULATOR? :NO DO YOU HAVE ANY RASHES OR OPEN SORES? :NO ARE YOU ALLERGIC TO IV DYE? :NO ARE YOU DIABETIC? :NO ANY NEW PROBLEMS WITH YOUR MEDICATIONS? :NO HAVE YOU RECEIVED A VACCINE IN THE PAST 30 DAYS? :NO DO YOU PLAN TO RECEIVE A VACCINE IN THE NEXT 21 DAYS? :NO DO YOU TAKE ANY IMMUNOSUPPRESSIVE MEDICATIONS? :NO ANY HISTORY OF SEIZURES? :NO ANY HISTORY OF CARDIAC ISSUES OR EVENTS? :YES 2008 DO YOU HAVE SLEEP APNEA? :YES DO YOU WEAR A CPAP? WAITING FOR SLEEP STUDY ANY RECENT HEAD INJURY? :NO DO YOU HAVE ANY NEW INFECTIONS? :NO IS THERE A CHANCE YOU COULD BE ? :NO ARE YOU BREAST FEEDING? :NO WHEN DID YOU LAST EAT? : 06/16 1800 WHEN DID YOU LAST DRINK? : 06/17 0400 WHAT DID YOU LAST DRINK? : [place] NAME OF PERSON DRIVING YOU HOME? : GIORGIO DO YOU HAVE ANY OTHER QUESTIONS OR CONCERNS? : - CURRENT MEDICATIONS TAKING MAGNESIUM OXIDE 400 MG CAPSULE ORALLY DAILY, NOTES: 06/15 TAKING CARAFATE 1 GM TABLET 1 TABLET ORALLY FOUR TIMES DAILY, NOTES: 06/15 TAKING CETIRIZINE HCL 10 MG TABLET 1 TABLET ORALLY ONCE A DAY, NOTES: 06/15 TAKING EXCEDRIN TENSION HEADACHE 500-65 MG TABLET DIRECTED ORALLY , NOTES: 06/15 TAKING MECLIZINE HCL 25 MG TABLET 1 TABLET NEEDED ORALLY ONCE TAKING MULTI COMPLETE CAPSULE 1 CAP ORALLY DAILY, NOTES: 06/15 TAKING NEXIUM 40 MG CAPSULE DELAYED RELEASE 1 CAPSULE ORALLY BID, NOTES: 06/17 545 TAKING PATANASE 0.6 % SOLUTION 2 SPRAYS NASALLY TWICE A DAY, NOTES: 06/15 TAKING VITAMIN D3 3000 UNIT TABLET 1 TABLET ORALLY ONCE A DAY, NOTES: 06/16 07 TAKING GENTEAL 0.3 % SOLUTION 1 DROP INTO AFFECTED EYE NEEDED OPHTHALMIC TWICE DAILY, NOTES: 06/15 TAKING RIBOFLAVIN 100 MG TABLET 2 TABLET WITH A MEAL ORALLY TWICE DAILY, NOTES: 06/15 TAKING VITAMIN D (ERGOCALCIFEROL) 48515 UNIT CAPSULE 1 CAPSULE ORALLY WEEKLY, NOTES: 06/14 TAKING METOPROLOL SUCCINATE 50 MG TABLET EXTENDED RELEASE ORALLY DAILY, NOTES: 06/17 545 TAKING FENOFIBRATE 54 MG TABLET 1 TABLET WITH A MEAL ORALLY ONCE A DAY, NOTES: 06/17 545 TAKING ROPINIROLE HCL 1 MG TABLET 1 TAB ORALLY THREE TIMES DAILY, NOTES: 06/15 TAKING PROBIOTIC - CAPSULE ORALLY DAILY, NOTES: 06/16 TAKING RANEXA 500 MG TABLET EXTENDED RELEASE 12 HOUR 1 TABLET ORALLY TWICE A DAY, NOTES: 06/17 545 TAKING DICYCLOMINE HCL 10 MG CAPSULE 1 CAP ORALLY THREE TIMES A DAY, NOTES: 06/17 545 TAKING ZONISAMIDE 50 MG CAPSULE 1 CAPSULE IN AM, 2 CAPSULES AT BEDTIME ORALLY TWICE A DAY, NOTES: 06/17 545 TAKING FISH OIL 1000 MG CAPSULE 2 CAPSULES ORALLY BID, NOTES: 06/16 TAKING ZOLMITRIPTAN 5 MG TABLET 1 TABLET NEEDED ONE TIME ORALLY ONCE A DAY, NOTES: 06/15 TAKING EPINEPHRINE HCL (ANAPHYLAXIS) 1 MG/ML SOLUTION INJECTION , NOTES: NEVER TAKING BACLOFEN 10 MG TABLET 1 TABLET WITH FOOD OR MILK ORALLY THREE TIMES A DAY, NOTES: 06/17 545 TAKING ZOMIG ZMT 5 MG TABLET DISPERSIBLE DIRECTED ORALLY PRN FOR MIGRAINE, NOTES: 06/15 TAKING DOCUSATE SODIUM 100 MG CAPSULE 1 CAPSULE NEEDED ORALLY BID, NOTES: 06/16 TAKING CIALIS 5MG TABLET 1 TABLET ORALLY ONCE A DAY, NOTES: 06/15 TAKING RITALIN 20 MG TABLET 1 TABLET ON AN EMPTY STOMACH ORALLY TWICE A DAY, NOTES: 06/16 TAKING CPAP MACHINE DIRECTED , NOTES: USES OCCASSIONALLY TAKING EXTRA STRENGTH ACETAMINOPHEN 2 TABS ORALLY FOUR TIMES DAILY NEEDED, NOTES: 06/15 TAKING ASPIRIN 81 81 MG TABLET CHEWABLE 1 TABLET ORALLY ONCE A DAY, NOTES: 06/16 TAKING ALBUTEROL SULFATE HFA 108 (90 BASE) MCG/ACT AEROSOL SOLUTION 2 PUFFS NEEDED INHALATION EVERY 4 HRS, NOTES: FEW DAYS AGO TAKING FIBER LAXATIVE 625 MG TABLET 1 TABLET NEEDED ORALLY FOUR TIMES A DAY, NOTES: 06/16 TAKING LIDODERM 5 % PATCH 1 PATCH TO INTACT SKIN REMOVE AFTER 12 HOURS EXTERNALLY ONCE A DAY, NOTES: NONE RECENT TAKING TRAMADOL HCL 50 MG TABLET 2 ORALLY Q8H PRN MDD6 #100 TAB SHOULD LAST 30 DAYS, NOTES: 06/17 545 TAKING LIPITOR 20 MG TABLET 1 TABLET ORALLY ONCE A DAY, NOTES: 06/15 TAKING ADVAIR DISKUS 100-50 MCG/DOSE AEROSOL POWDER BREATH ACTIVATED 1 PUFF INHALATION TWICE A DAY, NOTES: 06/15 NOT-TAKING PREDNISONE 1 TAB ORAL , NOTES: 10MG AND WEANING DOWN NOT-TAKING SIMVASTATIN 20 20MG TABLET DIRECTED ORAL DAILY, NOTES: 6/2 PM NOT-TAKING ALBUTEROL SULFATE (2.5 MG/3ML) 0.083% NEBULIZATION SOLUTION 3 ML NEEDED INHALATION THREE TIMES A DAY NOT-TAKING METHYLPHENIDATE HCL 5 MG TABLET 1 TABLET ON AN EMPTY STOMACH ORALLY TWICE A DAY NOT-TAKING HYDROXYZINE PAMOATE 25 MG CAPSULE 1 CAPSULE NEEDED ORALLY BID NOT-TAKING VESICARE 10 MG TABLET 1 TABLET ORALLY ONCE A DAY NOT-TAKING METAXALONE 800 MG TABLET 1 TABLET ORALLY THREE TIMES A DAY NOT-TAKING CLONAZEPAM 0.5 MG TABLET 1 TABLET AT BEDTIME ORALLY ONLY NEEDED NOT-TAKING RITALIN 20MG TABLET 1 TABLET ORALLY TWICE DAILY NOT-TAKING REQUIP 1 MG TABLET 1 1/2 TABLET ORALLY TWICE A DAY NOT-TAKING ANDROGEL PUMP 12.5 MG/ACT (1%) GEL TRANSDERMAL NOT-TAKING MELOXICAM 15 MG TABLET 1 TABLET ORALLY ONCE A DAY NOT-TAKING CEFDINIR 300 MG CAPSULE 1 CAPSULE ORALLY EVERY 12 HRS NOT-TAKING PREDNISONE 10 MG TABLET 1 TABLET ORALLY ONCE A DAY NOT-TAKING HYOSCYAMINE SULFATE 0.125 MG TABLET 1 TABLET BEFORE MEALS NEEDED ORALLY EVERY 4 HRS NOT-TAKING LOVAZA 1 GM CAPSULE 2 CAPSULES ORALLY TWICE A DAY NOT-TAKING CYMBALTA 30 MG CAPSULE DELAYED RELEASE PARTICLES 1 CAPSULE ORALLY DAILY NOT-TAKING LOPERAMIDE HCL 2 MG CAPSULE 1 CAPSULE ORALLY 8 TIME(S) A DAY NOT-TAKING NITRO-BID 2 % OINTMENT DIRECTED TRANSDERMAL NOT-TAKING HYDROCODONE-ACETAMINOPHEN 5-325 MG TABLET 1 TABLET NEEDED ORALLY EVERY 6 HRS NOT-TAKING PAROXETINE HCL 40 MG TABLET 1 TABLET IN THE MORNING ORALLY ONCE A DAY MEDICATION LIST REVIEWED AND RECONCILED WITH THE PATIENT PAST MEDICAL HISTORY PTSD ALLERGIC RHINITIS ANXIETY ASTHMA 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 FLAT FOOT INSOMNIA 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 DEPRESSION 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 4 SON(S) , 2 DAUGHTER(S) - HEALTHY. FATHER HAD CYSTS ON KIDNEY'S PRIOR TO . SOCIAL HISTORY GENERAL: TOBACCO USE ARE YOU A:NEVER SMOKER LATEX QUESTIONNAIRE LATEX ALLERGY : HAVE YOU EVER DEVELOPED ANY TYPE OF REACTION AFTER HANDLING LATEX PRODUCTS SUCH RUBBER GLOVES, CONDOMS, DIAPHRAGMS, BALLOONS, SOCKS, OR UNDERWEAR?NO LATEX ALLERGY : HAVE YOU EVER DEVELOPED ANY TYPE OF REACTION DURING OR AFTER DENTAL APPOINTMENT, VAGINAL/RECTAL EXAMINATION, SURGICAL PROCEDURE, OR ANY OTHER EXPOSURE?NO LATEX RISK : HAVE YOU EVER HAD ANY DIFFICULTY BREATHING OR HIVES AFTER EATING OR HANDLING ANY FRUITS, OR VEGETABLES; SUCH KIWI, BANANAS, STONE FRUITS, OR CHESTNUTSNO LATEX RISK : DO YOU HAVE A PREVIOUS PERSONAL HISTORY OF MORE THAN NINE SURGERIES, SPINA BIFIDA, OR REPEATED CATHERIZATIONS? NO LATEX RISK : ARE YOU FREQUENTLY EXPOSED TO LATEX PRODUCTS IN YOUR OCCUPATION? NOT SURE IF THEY USE LATEX GLOVES AT WORK OR NOT DATE ASKED : 06/17/2020 ALCOHOL SCREENING POINTS: 1, INTERPRETATION: NEGATIVE. RECREATIONAL DRUG USE DENIES. CAFFEINE 1-2/DAY. SEXUAL HX HAD SEX IN THE LAST 12 MONTHS (VAGINAL, ORAL, OR ANAL)?: YES, WITH: WOMEN ONLY, USE PROTECTION?: YES, HOW OFTEN?: ALL OF THE TIME, HAVE YOU EVER HAD AN STD?: NO. ADVENTISM NO LATTER DAY BELIEFS THAT WOULD IMPACT HEALTH CARE. LANGUAGE KYRGYZ. EDUCATION LEVEL OF EDUCATION:NOT FINISHED COLLEGE LEARNING BARRIERS / SPECIAL NEEDS CHANGE FROM LAST VISIT?NO BARRIERS TO LEARNING?NO HEARING IMPAIRED?NO VISION IMPAIRED?NO COGNITIVELY IMPAIRED?NO READINESS TO LEARN?YES LEARNING PREFERENCES?YES :DEMONSTRATION/VERBAL INSTRUCTION, OTHER (PLEASE COMMENT) HANDS ON LEARNING CAPABILITIES PRESENT?YES EMOTIONAL BARRIERS?NO SPECIAL DEVICES?NO CARTRIDGE LOADING OPERATOR NEEDED?NO DOMESTIC VIOLENCE DO YOU FEEL SAFE IN YOUR ENVIRONMENT?YES DIET: REGULAR. EXERCISE: DAILY. MARITAL STATUS: . OTHERS AT HOME: DISPATCHER RELAY TO 2 GRANDCHILDREN. PAIN CLINIC PFS, CLERGY, PUBLIC HEALTH REFERRALS HAS THE PATIENT BEEN EDUCATED REGARDING HIS/HER PLAN OF CARE?YES HAS THE PATIENT BEEN EDUCATED REGARDING PAIN, THE RISK FOR PAIN, THE IMPORTANCE OF EFFECTIVE PAIN MANAGEMENT, AND THE PAIN ASSESSMENT PROCESS?YES ADVANCE DIRECTIVE ADVANCE DIRECTIVE DISCUSSED WITH PATIENT:YES 06/17/2020 PT DOES NOT HAVE ANY ADVANCED DIRECTIVES AND HE DECLINES INFORMATION ON HCP AT THIS TIME. HOSPITALIZATION/MAJOR DIAGNOSTIC PROCEDURE COLITIS 04/2011 VITAL SIGNS WT 215.8 LBS, HT 5'5'', BMI 35.91 INDEX, BP 131/60 MM HG, HR 67 /MIN, RR 18 /MIN, TEMP 96.7 F, OXYGEN SAT % 98%, SAFE IN ENV? (Y/N) Y, NA INITIALS CO 08:21, REVIEWED BY: Renae MINAYA RN 0841. EXAMINATION GENERAL EXAMINATION: A HISTORY AND PHYSICAL EXAM ON THE PATIENT WAS DONE ON 06/11/2020 (DATE OF ORIGINAL ASSESSMENT) IN PREPARATION OF SURGERY/PROCEDURE. I HAVE NOW REASSESSED THIS PATIENT'S HEALTH STATUS AND PERFORMED AN UPDATED EXAM TODAY. ALL CHANGES IN THE PATIENT'S HISTORY, PHYSICAL EXAM, PRE-EXISTING CONDITONS, AND INDICATIONS/CONTRAINDICATIONS TO THE PLANNED PROCEDURE AND ANESTHESIA ARE DOCUMENTED AND EVALUATED BELOW. I ATTEST TO THE ADEQUACY AND APPROPRIATENESS OF MY ASSESSMENT, AND CONFIRM THE NECESSITY FOR THE PLANNED PROCEDURE. THE PATIENT IS ALERT, ORIENTED TIMES THREE AND COOPERATIVE. HEART SHOWS REGULAR RHYTHM, NO MURMURS AND NO GALLOPS. LUNGS ARE CLEAR TO AUSCULTATION. ASSESSMENTS INTERVERTEBRAL DISC DISORDERS WITH RADICULOPATHY, LUMBAR REGION - M51.16 (PRIMARY) TREATMENT INTERVERTEBRAL DISC DISORDERS WITH RADICULOPATHY, LUMBAR REGION [facility] FLUORO GUIDE SPINE INJECTION (PAIN)[id number] MEDICATION: VERSED 1MG IV (MIDAZOLAM)FACUNDO BARRETOL 06/17/2020 09:42:13 AM - SECOND DOSE ORDERED, VERIFIED WITH LYNETTE LOPEZ 06/17/2020 10:02:50 AM > LOT: [id number], EXP: 10/2022 FIRST DOSE @ 0934 SECOND DOSE @ 0942 MEDICATION: FENTANYL CITRATE 50MCG IV ARSALANAngelSTEPHENDAVID 06/17/2020 09:42:28 AM - SECOND DOSE ORDERED, VERIFIED WITH LYNETTE LOPEZ 06/17/2020 10:04:13 AM > LOT: [id number], EXP: 01/2022 FIRST DOSE @ 0934 SECOND DOSE @ 0942 TOTAL DOSE: 100 MCG OXYGEN AT 2 LITERS PER NASAL CANNULABOWEN MINAYA 06/17/2020 11:29:55 AM > ON @ 0933, OFF @ 0946 IV [facility]BOWEN 06/17/2020 8:53:16 AM > STARTED BY Marco ROMERO RN ON 1ST ATTEMPT. INFUSING WITHOUT REDNESS OR SWELLING. BOWEN MINAYA 06/17/2020 11:30:35 AM > 325 ML GIVEN TOTAL PROCEDURES PAIN NURSING RECORD PRE-PROCEDURE IV SITE LEFT HAND, IV STARTED # 22, IV STARTED BY: Marco ROMERO RN, IV ATTEMPTS 1, PRE-PROCEDURE ORAL MEDICATIONS NONE PROCEDURE IN ROOM 0913, PHYSICIAN IN ROOM 0934, START 0940, FINISH 0945, PHYSICIAN OUT OF ROOM 0947, OUT OF ROOM 0955, STEROID DEPOMEDROL, O2 NC 2 LPM @0933, OFF @ 0946, ECG OTHER SINUS MARIEL, PATIENT SHIELDED YES, SAFETY STRAP YES, PREP BETADINE BY Renae MINAYA RN, IV INFUSED LACTATED RINGERS, DRESSING TEGADERM BY DR. CANO LOC: BOWEN MINAYA 06/17/2020 9:15:06 AM > 1. ALERT, ORIENTED BOWEN MINAYA 06/17/2020 9:4 2:34 AM > 2. DROWSY, RESPONDS APPROPRIATELY BOWEN MINAYA 06/17/2020 9:53:06 AM > 2. DROWSY, RESPONDS APPROPRIATELY BOWEN MINAYA 06/17/2020 10:11:43 AM > 1. ALERT, ORIENTED RESP: REIBOWEN 06/17/2020 9:15:23 AM > 1. REGULAR, NO DYSPNEA REIMATTAPOISETT 06/17/2020 9:43:13 AM> 1. REGULAR, NO DYSPNEA REIMATTAPOISETT 06/17/2020 9:51:39 AM > 1. REGULAR, NO DYSPNEA REIMATTAPOISETT 06/17/2020 10:11:52 AM > 1. REGULAR, NO DYSPNEA COLOR: REIBOWEN 06/17/2020 9:15:36 AM > 1. PINK REIBOWEN 06/17/2020 9:43:35 AM > 1. PINK REIMATTAPOISETT 06/17/2020 9:53:17 AM > 1. PINK REIMATTAPOISETT 06/17/2020 10:11:59 AM > 1. PINK SKIN: REIMATTAPOISETT 06/17/2020 9:15:38 AM > 1. WARM, DRY REIMATTAPOISETT 06/17/2020 9:43:41 AM > 1. WARM, DRY REIMATTAPOISETT 06/17/2020 9:53:32 AM > 1. WARM, DRY REIMATTAPOISETT 06/17/2020 10:12:22 AM > 1. WARM, DRY POSITION: REIMATTAPOISETT 06/17/2020 9:15:54 AM > 1. PRONE REIMATTAPOISETT 06/17/2020 9:43:48 AM > 1. PRONE REIMATTAPOISETT 06/17/2020 9:53:38 AM > 1. PRONE REIMATTAPOISETT 06/17/2020 10:12:29 AM > 4. OTHER VITALS: REIBOWEN 06/17/2020 9:15:07 AM > 129/71,57,16,99% REIMATTAPOISETT 06/17/2020 9:20:36 AM > 129/76,59,16 99% REIMATTAPOISETT 06/17/2020 9:24:42 AM > 127//78,59,16,99% REIBOWEN 06/17/2020 9:29:34 AM > 127/82,59,16,99% REIBOWEN 06/17/2020 9:34:20 AM > 134/89,63,16,100% REI,MATTAPOISETT 06/17/2020 9:39:25 AM > 148/84,61,16,99% REI,[place]IS[place]T 06/17/2020 9:44:09 AM > 143/76,56,16,100% REI,[place] 06/17/2020 9:49:38 AM > 138/68,51,14,95% REI,[place] 06/17/2020 9:52:05 AM > 143/80,50,14,94% REI,[place] 06/17/2020 9:57:53 AM > 117/67,55,14,95% REI,[place] 06/17/2020 10:07:07 AM >114/55, 59,16,95% [facility] 06/[facility]2020 10:12:59 AM > 114/64,53,16,96% DISCHARGE: POST PAIN 0, DRESSING SITE DRY AND INTACT, IV DISCONTINUED, SITE CLEAR, CATHETER INTACT, GAIT STEADY D/C VIA W/C DUE TO CONSCIOUS SEDATION, TEACHING COMPLETED, PATIENT ACKNOWLEDGES UNDERSTANDING YES PRINTED POST-PROCEDURE AND COVID SYMPTOMS MONITORING INSTRUCTIONS GIVEN TO AND REVIEWED WITH PT AND HE VERBALIZED, PATIENT DISCHARGED AT 1025 PRE PROCEDURE DIAGNOSIS LUMBAR DISC DISORDER WITH RADICULOPATHY POST PROCEDURE DIAGNOSIS LUMBAR DISC DISORDER WITH RADICULOPATHY PROCEDURE LUMBAR EPIDURAL STEROID INJECTION UNDER FLUOROSCOPIC GUIDANCE SURGEON DR. BRADY CANO TRANSPORT RN NONE ANESTHESIA LOCAL PRE PROCEDURE NOTE THE PATIENT HAS A HISTORY OF CHRONIC LOW BACK PAIN. I EVALUATED THE PATIENT AND REVIEWED THE CHART. I WENT OVER THE RISKS, ALTERNATIVES, AND BENEFITS ASSOCIATED WITH THIS PROCEDURE. I DISCUSSED THAT THE USE OF STEROIDS MAY CONTRIBUTE TO IMMUNOSUPPRESSION OF THE PATIENT'S BODY AGAINST INFECTIONS SUCH COVID-19. THE PATIENT IS AWARE OF THE POTENTIAL COMPLICATIONS ASSOCIATED WITH THIS VIRUS, INCLUDING, BUT NOT LIMITED TO, . THE PATIENT WOULD LIKE TO PROCEED AND GIVE CONSENT TO PERFORMED THE PROCEDURE. THE PATIENT DENIES UNEXPLAINABLE WEIGHT LOSS, FEVER, CHILLS, OR NEW CHANGES IN URINARY OR BOWEL CONTROL. THE PATIENT IS COVID-19 NEGATIVE DESCRIPTION OF PROCEDURE THE PATIENT WAS BROUGHT TO THE PROCEDURE ROOM AND PLACED IN THE PRONE POSITION. THE LUMBOSACRAL AREA WAS CLEANED WITH BETADINE SOLUTION AND DRAPED ASEPTICALLY. THE PROCEDURE WAS DONE UNDER STERILE CONDITIONS. A TIMEOUT WAS PERFORMED WHERE LATERALITY AND THE SITE OF THE PROCEDURE WERE CHECKED AND CONFIRMED WITH EVERYONE IN THE ROOM. UNDER FLUOROSCOPIC GUIDANCE, THE TARGET POINT WAS SELECTED AT THE INTERLAMINAR LEVEL OF L4-L5. I CONFIRMED AGAIN WITH EVERYONE IN THE ROOM THE LATERALITY OF THE TARGET 0939. LIDOCAINE WAS USED TO NUMB THE SKIN AND THE SUBCUTANEOUS TISSUE BELOW IT. EPIDURAL TUOHY NEEDLE, 17-GAUGE, WAS ADVANCED UNDER FLUOROSCOPIC GUIDANCE AND FOLLOWING PATIENT FEEDBACK UNTIL THE EPIDURAL SPACE WAS REACHED 7 CM DEEP INTO THE SKIN BY THE LOSS OF RESISTANCE TECHNIQUE. ISOVUE-M DYE 30%, 0.25 ML, WAS INJECTED SHOWING ADEQUATE SPREAD OF THE DYE. THEN, A SOLUTION OF 3 ML OF NORMAL SALINE WITH DEPO-MEDROL 80 MG WAS INJECTED SLOWLY FOLLOWING PATIENT FEEDBACK. THE MEDICATIONS WERE VERIFIED WITH THE NURSE. THERE WAS NO EVIDENCE OF BLOOD, PARESTHESIA OR CEREBROSPINAL FLUID DURING THE PROCEDURE. THE PATIENT WAS SENT TO THE RECOVERY ROOM. THE PATIENT WAS MOVING THE EXTREMITIES AND DOING WELL. THERE WERE NO COMPLICATIONS DURING THE PROCEDURE. ESTIMATED BLOOD LOSS WAS LESS THAN 5 ML. FLUOROSCOPY TIME WAS 13 SECONDS THE PATIENT RECEIVED VERSED 2 MG AND FENTANYL 100 MCG IV IN DIVIDED DOSES. FACE TO FACE START TIME: 933 FACE TO FACE END TIME: 946 TOTAL FACE TO FACE TIME: 13 MINUTES POST PROCEDURE NOTE THE PATIENT WILL BE SEEN IN A FOLLOW UP IN THE NEXT FEW WEEKS. I AM LOOKING FOR LONG LASTING RELIEF FOR THE PATIENT WITH THIS INTERVENTION. INSTRUCTIONS WERE GIVEN, QUESTIONS WERE ANSWERED, AND THE PATIENT EXPRESSED UNDERSTANDING AND AGREES WITH THE PLAN. I, DAVID BARRETO, DOCUMENTED THE ABOVE INFORMATION ACTING A SCRIBE FOR DR. CANO. I HAVE REVIEWED THE ABOVE DOCUMENT, WRITTEN BY DAVID BARRETO, EQUIPMENT APPLICATION SPECIALIST, AND I VERIFY THAT IT IS ACCURATE PROCEDURE CODES 85486 LUMBAR/SACRAL W/ IMAGING 05475 MOD SED SAME PHYS/QHP 5/>YRS DISPOSITION & COMMUNICATION FOLLOW UP FOLLOW UP WITH PULMONARY DISEASE SPECIALIST (REASON: POST LESI L4-L5 WITH IV SEDATION) ELECTRONICALLY SIGNED BY BRADY CANO MD, MD ON 06/17/2020 AT 02:18 PM EST DISCLAIMER : THIS IS A VISIT SUMMARY EXTRACTED FROM THE [email or web address] CHART. IT IS NOT A COPY OF THE [email or web address] PROGRESS NOTE. HEDYD
== END ==
LOC: M PAIN 08:00
PROVIDERS: ATTEND Anesthesiology
DX: M51.16 Intervertebral disc disorders with radiculopathy, lumbar region (principal); F43.10 Post-traumatic stress disorder, unspecified; F41.9 Anxiety disorder, unspecified; J45.909 Unspecified asthma, uncomplicated; F32.9 Major depressive disorder, single episode, unspecified; E78.5 Hyperlipidemia, unspecified; E55.9 Vitamin D deficiency, unspecified; G25.81 Restless legs syndrome; H81.10 Benign paroxysmal vertigo, unspecified ear; Z79.82 Long term (current) use of aspirin; Z79.891 Long term (current) use of opiate analgesic; Z79.899 Other long term (current) drug therapy; Z91.030 Bee allergy status
CPT/HCPCS: 62323; 99152; J1030; J2250; J3010; Q9967

== ENCOUNTER → 2020-07-01 | Outpatient (CLI) | payer OTHER ==
[~2020-07-01] MED LIST changes: -ISOVUE-M 300 61% 15ML VIAL As Ordered ONE; -LIDOCAINE 1% SDV 30ML VIAL As Ordered ONE; -MIDAZOLAM INJ 2MG/2ML VIAL (J2250 PER 1MG) As Ordered ONE; -fentaNYL 100 MCG/2 ML INJECTION (J3010) As Ordered ONE; -methylPREDNISolone SUSP 40MG/ML 1ML VIAL (DEPO MEDROL) As Ordered ONE
--- NOTE | 2020-07-06 04:29 | ECWPNPC ---
PATIENT NAME: ROSHNI PRECIADO : 1975 GENDER: MALE VISIT DATE: 07/01/2020 DISCHARGE DATE: 07/01/20 1552 VISIT LOCKED DATE TIME: PHYSICIAN: LALIT RECIO RESOURCE: LALIT RECIO REASON FOR APPOINTMENT 1. POST LEFT L4-5 LESI WITH IV SEDATION HISTORY OF PRESENT ILLNESS PAIN CENTER INTAKE QUESTIONS: DO YOU HAVE A HISTORY OF MRSA? :NO DO YOU TAKE A BLOOD THINNERS? :NO DO YOU HAVE ANY BLEEDING DISORDERS? :NO ANY NEW NUMBNESS OR WEAKNESS IN YOUR LEGS OR ARMS? :NO ANY PACEMAKER,DEFIBRILLATOR, OR DORSAL COLUMN STIMULATOR? :NO DO YOU HAVE ANY RASHES OR OPEN SORES? :NO ARE YOU ALLERGIC TO IV DYE? :NO ARE YOU DIABETIC? :NO ANY NEW PROBLEMS WITH YOUR MEDICATIONS? :NO HAVE YOU RECEIVED A VACCINE IN THE PAST 30 DAYS? :NO DO YOU PLAN TO RECEIVE A VACCINE IN THE NEXT 21 DAYS? :NO DO YOU NEED ANY PRESCRIPTION? :NO DO YOU TAKE ANY IMMUNOSUPPRESSIVE MEDICATIONS? :NO IS THERE A CHANCE YOU COULD BE ? :NO ARE YOU BREAST FEEDING? :NO GENERAL: HERE FOR POST PROCEDURE FOLLOW-UP. HAD L4-5 LESI WITH IV SEDATION ON 06/17/2020. REPORTING SOME IMPROVEMENT IN LOW BACK PAIN AND LEFT LEG PAIN AFTER INITIAL IRRITATION BUT PAIN RELIEF WAS SHORT-LIVED. MRI OF THE LS-SPINE DONE LAST MONTH DUE TO INCREASED PAIN IS REVIEWED AGAIN TODAY. SHOWING LARGE DISC PROTRUSION AT L5-S1 WITH LEFT NERVE INVOLVEMENT. DISCUSSED TRANSFORAMINAL STEROID INJECTION AND OR REFERRAL TO SURGEON. AFTER POTENTIAL RISKS OF TRANSFORAMINAL STEROID INJECTION WERE REVIEWED WITH PATIENT HE IS OPTING TO HAVE SURGICAL EVALUATION. HAS TRIED MULTIPLE DIFFERENT INJECTIONS OVER THE PAST YEARS WHICH HAVE ONLY GIVEN HIM A SMALL AMOUNT OF RELIEF FOR SHORT PERIOD OF TIME. -. FALL RISK SCREENING: SCREENING :NO FALLS REPORTED IN THE LAST YEAR PAIN SCREENING: PATIENT HAS A COMPLAINT OF ACUTE OR CHRONIC PAIN :YES LOCATION OF PAIN:BACK, LEG(S) INTENSITY OF PAIN (SCALE OF 1 TO 10):7 WHAT DOES YOUR PAIN FEEL LIKE:ACHING, CONTINOUS, STABBING, THROBBING PT DESCRIBES IT A "HEAVY OR SORE FEELING" PAIN IS INCREASED BY:ACTIVITIES NURSING NOTE: -. CURRENT MEDICATIONS TAKING MAGNESIUM OXIDE 400 MG CAPSULE ORALLY DAILY TAKING CARAFATE 1 GM TABLET 1 TABLET ORALLY FOUR TIMES DAILY TAKING CETIRIZINE HCL 10 MG TABLET 1 TABLET ORALLY ONCE A DAY TAKING EXCEDRIN TENSION HEADACHE 500-65 MG TABLET DIRECTED ORALLY TAKING MECLIZINE HCL 25 MG TABLET 1 TABLET NEEDED ORALLY ONCE TAKING MULTI COMPLETE CAPSULE 1 CAP ORALLY DAILY TAKING NEXIUM 40 MG CAPSULE DELAYED RELEASE 1 CAPSULE ORALLY BID TAKING PATANASE 0.6 % SOLUTION 2 SPRAYS NASALLY TWICE A DAY TAKING VITAMIN D3 3000 UNIT TABLET 1 TABLET ORALLY ONCE A DAY TAKING GENTEAL 0.3 % SOLUTION 1 DROP INTO AFFECTED EYE NEEDED OPHTHALMIC TWICE DAILY TAKING RIBOFLAVIN 100 MG TABLET 2 TABLET WITH A MEAL ORALLY TWICE DAILY TAKING VITAMIN D (ERGOCALCIFEROL) 53631 UNIT CAPSULE 1 CAPSULE ORALLY WEEKLY TAKING METOPROLOL SUCCINATE 50 MG TABLET EXTENDED RELEASE ORALLY DAILY TAKING FENOFIBRATE 54 MG TABLET 1 TABLET WITH A MEAL ORALLY ONCE A DAY TAKING ROPINIROLE HCL 1 MG TABLET 1 TAB ORALLY THREE TIMES DAILY TAKING PROBIOTIC - CAPSULE ORALLY DAILY TAKING RANEXA 500 MG TABLET EXTENDED RELEASE 12 HOUR 1 TABLET ORALLY TWICE A DAY TAKING DICYCLOMINE HCL 10 MG CAPSULE 1 CAP ORALLY THREE TIMES A DAY TAKING ZONISAMIDE 50 MG CAPSULE 1 CAPSULE IN AM, 2 CAPSULES AT BEDTIME ORALLY TWICE A DAY TAKING FISH OIL 1000 MG CAPSULE 2 CAPSULES ORALLY BID TAKING ZOLMITRIPTAN 5 MG TABLET 1 TABLET NEEDED ONE TIME ORALLY ONCE A DAY TAKING EPINEPHRINE HCL (ANAPHYLAXIS) 1 MG/ML SOLUTION INJECTION , NOTES: NEVER TAKING BACLOFEN 10 MG TABLET 1 TABLET WITH FOOD OR MILK ORALLY THREE TIMES A DAY TAKING ZOMIG ZMT 5 MG TABLET DISPERSIBLE DIRECTED ORALLY PRN FOR MIGRAINE TAKING DOCUSATE SODIUM 100 MG CAPSULE 1 CAPSULE NEEDED ORALLY BID TAKING CIALIS 5MG TABLET 1 TABLET ORALLY ONCE A DAY TAKING RITALIN 20 MG TABLET 1 TABLET ON AN EMPTY STOMACH ORALLY TWICE A DAY TAKING CPAP MACHINE DIRECTED , NOTES: USES OCCASSIONALLY TAKING EXTRA STRENGTH ACETAMINOPHEN 2 TABS ORALLY FOUR TIMES DAILY NEEDED TAKING ASPIRIN 81 81 MG TABLET CHEWABLE 1 TABLET ORALLY ONCE A DAY TAKING ALBUTEROL SULFATE HFA 108 (90 BASE) MCG/ACT AEROSOL SOLUTION 2 PUFFS NEEDED INHALATION EVERY 4 HRS, NOTES: FEW DAYS AGO TAKING FIBER LAXATIVE 625 MG TABLET 1 TABLET NEEDED ORALLY FOUR TIMES A DAY TAKING LIDODERM 5 % PATCH 1 PATCH TO INTACT SKIN REMOVE AFTER 12 HOURS EXTERNALLY ONCE A DAY, NOTES: NONE RECENT TAKING TRAMADOL HCL 50 MG TABLET 2 ORALLY Q8H PRN MDD6 #100 TAB SHOULD LAST 30 DAYS TAKING LIPITOR 20 MG TABLET 1 TABLET ORALLY ONCE A DAY, NOTES: 06/15 TAKING ADVAIR DISKUS 100-50 MCG/DOSE AEROSOL POWDER BREATH ACTIVATED 1 PUFF INHALATION TWICE A DAY NOT-TAKING PREDNISONE 1 TAB ORAL , NOTES: 10MG AND WEANING DOWN NOT-TAKING SIMVASTATIN 20 20MG TABLET DIRECTED ORAL DAILY, NOTES: 6/2 PM NOT-TAKING ALBUTEROL SULFATE (2.5 MG/3ML) 0.083% NEBULIZATION SOLUTION 3 ML NEEDED INHALATION THREE TIMES A DAY NOT-TAKING METHYLPHENIDATE HCL 5 MG TABLET 1 TABLET ON AN EMPTY STOMACH ORALLY TWICE A DAY NOT-TAKING HYDROXYZINE PAMOATE 25 MG CAPSULE 1 CAPSULE NEEDED ORALLY BID NOT-TAKING VESICARE 10 MG TABLET 1 TABLET ORALLY ONCE A DAY NOT-TAKING METAXALONE 800 MG TABLET 1 TABLET ORALLY THREE TIMES A DAY NOT-TAKING CLONAZEPAM 0.5 MG TABLET 1 TABLET AT BEDTIME ORALLY ONLY NEEDED NOT-TAKING RITALIN 20MG TABLET 1 TABLET ORALLY TWICE DAILY NOT-TAKING REQUIP 1 MG TABLET 1 1/2 TABLET ORALLY TWICE A DAY NOT-TAKING ANDROGEL PUMP 12.5 MG/ACT (1%) GEL TRANSDERMAL NOT-TAKING MELOXICAM 15 MG TABLET 1 TABLET ORALLY ONCE A DAY NOT-TAKING CEFDINIR 300 MG CAPSULE 1 CAPSULE ORALLY EVERY 12 HRS NOT-TAKING PREDNISONE 10 MG TABLET 1 TABLET ORALLY ONCE A DAY NOT-TAKING HYOSCYAMINE SULFATE 0.125 MG TABLET 1 TABLET BEFORE MEALS NEEDED ORALLY EVERY 4 HRS NOT-TAKING LOVAZA 1 GM CAPSULE 2 CAPSULES ORALLY TWICE A DAY NOT-TAKING CYMBALTA 30 MG CAPSULE DELAYED RELEASE PARTICLES 1 CAPSULE ORALLY DAILY NOT-TAKING LOPERAMIDE HCL 2 MG CAPSULE 1 CAPSULE ORALLY 8 TIME(S) A DAY NOT-TAKING NITRO-BID 2 % OINTMENT DIRECTED TRANSDERMAL NOT-TAKING HYDROCODONE-ACETAMINOPHEN 5-325 MG TABLET 1 TABLET NEEDED ORALLY EVERY 6 HRS NOT-TAKING PAROXETINE HCL 40 MG TABLET 1 TABLET IN THE MORNING ORALLY ONCE A DAY MEDICATION LIST REVIEWED AND RECONCILED WITH THE PATIENT PAST MEDICAL HISTORY PTSD ALLERGIC RHINITIS ANXIETY ASTHMA 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 FLAT FOOT INSOMNIA 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 DEPRESSION 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 4 SON(S) , 2 DAUGHTER(S) - HEALTHY. FATHER HAD CYSTS ON KIDNEY'S PRIOR TO . SOCIAL HISTORY GENERAL: TOBACCO USE ARE YOU A:NEVER SMOKER LATEX QUESTIONNAIRE LATEX ALLERGY : HAVE YOU EVER DEVELOPED ANY TYPE OF REACTION AFTER HANDLING LATEX PRODUCTS SUCH RUBBER GLOVES, CONDOMS, DIAPHRAGMS, BALLOONS, SOCKS, OR UNDERWEAR?NO LATEX ALLERGY : HAVE YOU EVER DEVELOPED ANY TYPE OF REACTION DURING OR AFTER DENTAL APPOINTMENT, VAGINAL/RECTAL EXAMINATION, SURGICAL PROCEDURE, OR ANY OTHER EXPOSURE?NO DATE ASKED : 06/17/2020 LATEX RISK : HAVE YOU EVER HAD ANY DIFFICULTY BREATHING OR HIVES AFTER EATING OR HANDLING ANY FRUITS, OR VEGETABLES; SUCH KIWI, BANANAS, STONE FRUITS, OR CHESTNUTSNO LATEX RISK : DO YOU HAVE A PREVIOUS PERSONAL HISTORY OF MORE THAN NINE SURGERIES, SPINA BIFIDA, OR REPEATED CATHERIZATIONS? NO LATEX RISK : ARE YOU FREQUENTLY EXPOSED TO LATEX PRODUCTS IN YOUR OCCUPATION? NOT SURE IF THEY USE LATEX GLOVES AT WORK OR NOT ALCOHOL SCREENING POINTS: 1, INTERPRETATION: NEGATIVE. RECREATIONAL DRUG USE DENIES. CAFFEINE 1-2/DAY. SEXUAL HX HAD SEX IN THE LAST 12 MONTHS (VAGINAL, ORAL, OR ANAL)?: YES, WITH: WOMEN ONLY, USE PROTECTION?: YES, HOW OFTEN?: ALL OF THE TIME, HAVE YOU EVER HAD AN STD?: NO. ORTHODOX NO AMISH BELIEFS THAT WOULD IMPACT HEALTH CARE. LANGUAGE SPANISH. EDUCATION LEVEL OF EDUCATION:NOT FINISHED COLLEGE LEARNING BARRIERS / SPECIAL NEEDS CHANGE FROM LAST VISIT?NO BARRIERS TO LEARNING?NO HEARING IMPAIRED?NO VISION IMPAIRED?NO COGNITIVELY IMPAIRED?NO READINESS TO LEARN?YES LEARNING PREFERENCES?YES :DEMONSTRATION/VERBAL INSTRUCTION, OTHER (PLEASE COMMENT) HANDS ON LEARNING CAPABILITIES PRESENT?YES EMOTIONAL BARRIERS?NO SPECIAL DEVICES?NO BOX CLOSING MACHINE OPERATOR NEEDED?NO DOMESTIC VIOLENCE DO YOU FEEL SAFE IN YOUR ENVIRONMENT?YES DIET: REGULAR. EXERCISE: DAILY. MARITAL STATUS: . OTHERS AT HOME: GARAGE WORKER TO 2 GRANDCHILDREN. PAIN CLINIC PFS, CLERGY, PUBLIC HEALTH REFERRALS HAS THE PATIENT BEEN EDUCATED REGARDING HIS/HER PLAN OF CARE?YES HAS THE PATIENT BEEN EDUCATED REGARDING PAIN, THE RISK FOR PAIN, THE IMPORTANCE OF EFFECTIVE PAIN MANAGEMENT, AND THE PAIN ASSESSMENT PROCESS?YES ADVANCE DIRECTIVE ADVANCE DIRECTIVE DISCUSSED WITH PATIENT:YES 06/17/2020 PT DOES NOT HAVE ANY ADVANCED DIRECTIVES AND HE DECLINES INFORMATION ON HCP AT THIS TIME. HOSPITALIZATION/MAJOR DIAGNOSTIC PROCEDURE COLITIS 04/2011 REVIEW OF SYSTEMS CONSTITUTIONAL: ANY RECENT FEVER NO . CHILLS NO . WEIGHT CHANGE OF UNKNOWN REASONS NO . GASTROENTEROLOGY: NEW UNEXPLAINABLE CHANGES IN BOWEL CONTROL NO . CONSTIPATION NO . GENITOURINARY: ANY NEW CHANGE IN BLADDER CONTROL? NO . NEUROLOGY: NEW ONSET DIZZINESS OR NEUROLOGICAL CHANGES NOT MENTIONED NO . NEW NUMBNESS OR PAIN PATTERNS NOT MENTIONED AND PERTINENT TO TODAY'S VISIT NO . CARDIOLOGY: NEW CHEST PRESSURE NO . NEW CHEST PAIN NO . RESPIRATORY: UNEXPLAINABLE COUGH NO . NEW SHORTNESS OF BREATH NO . VITAL SIGNS WT 217.4 LBS, HT 5'5'', BMI 36.17 INDEX, BP 124/90 MM HG, HR 68 /MIN, RR 18 /MIN, TEMP 97.5 F, OXYGEN SAT % 97%, SAFE IN ENV? (Y/N) YES, NA INITIALS SC 15:09, REVIEWED BY: KG. EXAMINATION GENERAL EXAMINATION: GENERAL AWAKE,ALERT ,PLEASANT . PSYCH AFFECT NORMAL . LUNGS: LUNG VILLANUEVA ARE CLEAR TO AUSCULTATION BILATERALLY. GOOD MOVEMENT OF AIR . HEART: S1, S2 IN A REGULAR RATE AND RHYTHM. NO SIGNIFICANT MURMURS, RUBS OR GALLOPS NOTED . LUMBAR: PALPATION: + FOR PAIN OVER L/S SPINE. + FOR PAIN OVER L/S PARASPINALS SLE: POSITIVE MODIFIED TESTING OVER LEFT LEG AT 45 DEGREES. DIAGNOSTIC TESTS REVIEWED MRI L/S SPINE05/2021. ASSESSMENTS OTHER CHRONIC PAIN - G89.29 (PRIMARY) PROTRUSION OF INTERVERTEBRAL DISC OF LUMBOSACRAL REGION - M51.27 TREATMENT OTHER CHRONIC PAIN PAIN PROCEDURE LOGDATE OF [id number]:LUMBAR EPIDURAL WITH IV SEDATIONAMOUNT OF PRE SEDATE2 MG VERSED 100 MCG FENTANYLRESULT:SOME IMPROVEMENTS AFTER INITIAL AGGRAVATION FOR SHORT TIME POST PROCEDURE NOTES: ISTOP REGISTRY REVIEWED AND DEMONSTRATES COMPLLIANCE. BRINGS IN MEDICATIONS WHICH IS APPROPRIATE FOR WHAT WAS DISPENSED. RECENT URINE TOXICOLOGY REVIEWED. NO UNAUTHORIZED MEDICATIONS. NO ILLICIT SUBSTANCES AND PRESCRIBED MEDICATIONS WERE PRESENT. URINE TOX TODAY , RISKS OF NARCOTIC/OPIOD MEDICATIONS INCLUDES BUT IS NOT LIMITED TO RISK OF DEPENDANCE/DEVELOPMENT OF ADDICTION, MOOD DISTURBANCE AND DEPRESSION, OSTEOPOROSIS, HORMONAL AND LABIDAL CHANGES, RESPIRATORY DEPRESSION AND . PATIENT IS ADVISED NOT TO DRIVE OR DRINK ALCOHOL WHILE ON THESE MEDICATIONS NARCOTIC AGREEMENT UPDATE , [facility] NARCOTIC AGREEMENT WAS REVIEWED AND SIGNED TODAY BY THE PATIENT. SEE ATTACHED DOCUMENT FOR FULL DETAILS; SPECIFIC ISSUES WERE REVIEWED: 1) KEEP PAIN MEDS IN THEIR ORIGINAL BOTTLES AND ANY WEEKLY PLANNERS ARE TO BE BROUGHT TO THE PAIN CENTER AT EVERY VISIT. 2) THE PATIENT IS NOT TO INCREASE DOSING OR TIMING OF THEIR PAIN MEDICATION WITHOUT SPECIFIC DIRECTION OF THEIR PAIN CENTERPROVIDER (NOT ER OR OTHER PROVIDERS). 3) ALL PAIN MEDS ARE TO BE KEPT SECURED, IN A LOCKED BOX. 4) NO PAIN MEDS ARE TO BE SHARED WITH ANY OTHER PERSON FOR ANY REASON. 5) NO PAIN MEDS MAY BE TAKEN FROM ANY FRIENDS OR RELATIVES FOR ANY REASON 6) NO MEDS OR SUBSTANCES WHICH ARE NOT LEGAL ARE TO BE USED- NO MARIJUANA, NO COCAINE, AMPHETAMINES, HEROIN, OR OTHERS ARE EVER TO BE USED. 7)URINE TESTING IS DONE TO ACCOUNT FOR MEDS AND SUBSTANCES BEING TAKEN AND WILL BE DONE RANDOMLY. [facility] REASON:ACUTE LOW BACK PAIN WITH LEFT LEG RADICULOPATHY 3 MONTHS. MINIMAL IMPROVEMENT WITH L4-5 LESI. MRI L/S SPINE 06/18/2020 SHOWING DISC PROTRUSION WITH LEFT L5-S1 NERVE IMPINGEMENT. PROCEDURE CODES FA211 ESTABILISHED PATIENT [facility] FACILITY CHARGE DISPOSITION & COMMUNICATION FOLLOW UP 2 MONTHS (REASON: FOLLOW-UP ON SURGICAL CONSULT/MEDICATION MANAGEMENT/REVIEW UTOX) ELECTRONICALLY SIGNED BY RUTHIE JOHNSON ON 07/05/2020 AT 09:08 AM EST DISCLAIMER : THIS IS A VISIT SUMMARY EXTRACTED FROM THE [employer] CHART. IT IS NOT A COPY OF THE [employer] PROGRESS NOTE. DAYANA
== END ==
LOC: M PAIN 14:45
PROVIDERS: ATTEND Nurse Practitioner Family
DX: G89.29 Other chronic pain (principal); M51.27 Other intervertebral disc displacement, lumbosacral region; F43.10 Post-traumatic stress disorder, unspecified; J45.909 Unspecified asthma, uncomplicated; F41.9 Anxiety disorder, unspecified; G25.81 Restless legs syndrome; E55.9 Vitamin D deficiency, unspecified; E78.5 Hyperlipidemia, unspecified; G47.30 Sleep apnea, unspecified; G43.909 Migraine, unspecified, not intractable, without status migrainosus; F32.9 Major depressive disorder, single episode, unspecified; Z79.82 Long term (current) use of aspirin; Z79.899 Other long term (current) drug therapy; Z91.030 Bee allergy status

== ENCOUNTER → 2020-09-03 | Outpatient (CLI) | payer OTHER ==
--- NOTE | 2020-09-06 23:51 | ECWPNPC ---
PATIENT NAME: ROSHNI PRECIADO : 1975 GENDER: MALE VISIT DATE: 09/03/2020 DISCHARGE DATE: 09/03/20 1439 VISIT LOCKED DATE TIME: PHYSICIAN: LALIT RECIO RESOURCE: LALIT RECIO REASON FOR APPOINTMENT 1. FOLLOW-UP ON SURGICAL CONSULT/MEDICATION MANAGEMENT/REVIEW UTOX HISTORY OF PRESENT ILLNESS GENERAL: HERE FOR FOLLOW-UP OF LOW BACK PAIN WITH RECENT HISTORY OF LUMBAR DISC PROTRUSION. HE SAW [facility] PER MY REFERRAL. IT SOUNDS LIKE THEY MAY BE CONSIDERING SURGERY PATIENT WILL BE SEEING SURGEON IN [place]. THERE ARE SOME OTHER STUDIES THAT THEY ARE WORKING ON. FINDS CURRENT MEDICATION SOMEWHAT HELPFUL AT REDUCING PAIN AND KEEPING HIM FUNCTIONAL. DENIES ADVERSE EFFECTS OF THE MEDICATION. EPIDURAL DONE IN JUNE WAS INEFFECTIVE AT REDUCING PAIN.-. FALL RISK SCREENING: SCREENING :NO FALLS REPORTED IN THE LAST YEAR PAIN SCREENING: PATIENT HAS A COMPLAINT OF ACUTE OR CHRONIC PAIN :YES LOCATION OF PAIN:NECK, UPPER BACK, LOW BACK INTENSITY OF PAIN (SCALE OF 1 TO 10):3 WHAT DOES YOUR PAIN FEEL LIKE:ACHING, BURNING, CONTINOUS, TENDER, THROBBING, SORE, SHOOTING DURATION:AWAKENS FROM SLEEP PAIN IS INCREASED BY:ACTIVITIES, PROLONGED STANDING PAIN IS DECREASED BY:USE OF PAIN MEDICATIONS PATIENT STATES THE "PAIN IS ALWAYS THERE, BUT MEDS TAKE THE EDGE OFF." NURSING NOTE: -. PAIN CENTER INTAKE QUESTIONS: DO YOU HAVE A HISTORY OF MRSA? :NO DO YOU TAKE A BLOOD THINNERS? :NO DO YOU HAVE ANY BLEEDING DISORDERS? :NO ANY NEW NUMBNESS OR WEAKNESS IN YOUR LEGS OR ARMS? :NO ANY PACEMAKER,DEFIBRILLATOR, OR DORSAL COLUMN STIMULATOR? :NO DO YOU HAVE ANY RASHES OR OPEN SORES? :NO ARE YOU ALLERGIC TO IV DYE? :NO ARE YOU DIABETIC? :NO ANY NEW PROBLEMS WITH YOUR MEDICATIONS? :NO HAVE YOU RECEIVED A VACCINE IN THE PAST 30 DAYS? :NO DO YOU PLAN TO RECEIVE A VACCINE IN THE NEXT 21 DAYS? :NO DO YOU NEED ANY PRESCRIPTION? :YES MAY NEED TRAMADOL DO YOU TAKE ANY IMMUNOSUPPRESSIVE MEDICATIONS? :NO IS THERE A CHANCE YOU COULD BE ? :NO ARE YOU BREAST FEEDING? :NO CURRENT MEDICATIONS TAKING MAGNESIUM OXIDE 400 MG CAPSULE ORALLY DAILY TAKING CARAFATE 1 GM TABLET 1 TABLET ORALLY FOUR TIMES DAILY TAKING CETIRIZINE HCL 10 MG TABLET 1 TABLET ORALLY ONCE A DAY TAKING EXCEDRIN TENSION HEADACHE 500-65 MG TABLET DIRECTED ORALLY TAKING MECLIZINE HCL 25 MG TABLET 1 TABLET NEEDED ORALLY ONCE A DAY TAKING MULTI COMPLETE CAPSULE 1 CAP ORALLY DAILY TAKING NEXIUM 40 MG CAPSULE DELAYED RELEASE 1 CAPSULE ORALLY BID TAKING PATANASE 0.6 % SOLUTION 2 SPRAYS NASALLY TWICE A DAY TAKING VITAMIN D3 3000 UNIT TABLET 1 TABLET ORALLY ONCE A DAY TAKING GENTEAL 0.3 % SOLUTION 1 DROP INTO AFFECTED EYE NEEDED OPHTHALMIC TWICE DAILY TAKING RIBOFLAVIN 100 MG TABLET 2 TABLET WITH A MEAL ORALLY TWICE DAILY TAKING VITAMIN D (ERGOCALCIFEROL) 14969 UNIT CAPSULE 1 CAPSULE ORALLY WEEKLY TAKING METOPROLOL SUCCINATE 50 MG TABLET EXTENDED RELEASE ORALLY DAILY TAKING FENOFIBRATE 54 MG TABLET 1 TABLET WITH A MEAL ORALLY ONCE A DAY TAKING ROPINIROLE HCL 1 MG TABLET 1 TAB ORALLY THREE TIMES DAILY TAKING PROBIOTIC - CAPSULE ORALLY DAILY TAKING RANEXA 500 MG TABLET EXTENDED RELEASE 12 HOUR 1 TABLET ORALLY TWICE A DAY TAKING DICYCLOMINE HCL 10 MG CAPSULE 1 CAP ORALLY THREE TIMES A DAY TAKING ZONISAMIDE 50 MG CAPSULE 1 CAPSULE IN AM, 2 CAPSULES AT BEDTIME ORALLY TWICE A DAY TAKING FISH OIL 1000 MG CAPSULE 2 CAPSULES ORALLY BID TAKING ZOLMITRIPTAN 5 MG TABLET 1 TABLET NEEDED ONE TIME ORALLY ONCE A DAY TAKING EPINEPHRINE HCL (ANAPHYLAXIS) 1 MG/ML SOLUTION INJECTION , NOTES: NEVER TAKING BACLOFEN 10 MG TABLET 1 TABLET WITH FOOD OR MILK ORALLY THREE TIMES A DAY TAKING ZOMIG ZMT 5 MG TABLET DISPERSIBLE DIRECTED ORALLY PRN FOR MIGRAINE TAKING DOCUSATE SODIUM 100 MG CAPSULE 1 CAPSULE NEEDED ORALLY BID TAKING CIALIS 5MG TABLET 1 TABLET ORALLY ONCE A DAY TAKING RITALIN 20 MG TABLET 1 TABLET ON AN EMPTY STOMACH ORALLY TWICE A DAY TAKING CPAP MACHINE DIRECTED , NOTES: USES OCCASSIONALLY TAKING EXTRA STRENGTH ACETAMINOPHEN 2 TABS ORALLY FOUR TIMES DAILY NEEDED TAKING ASPIRIN 81 81 MG TABLET CHEWABLE 1 TABLET ORALLY ONCE A DAY TAKING ALBUTEROL SULFATE HFA 108 (90 BASE) MCG/ACT AEROSOL SOLUTION 2 PUFFS NEEDED INHALATION EVERY 4 HRS, NOTES: FEW DAYS AGO TAKING FIBER LAXATIVE 625 MG TABLET 1 TABLET NEEDED ORALLY FOUR TIMES A DAY TAKING LIDODERM 5 % PATCH 1 PATCH TO INTACT SKIN REMOVE AFTER 12 HOURS EXTERNALLY ONCE A DAY, NOTES: NONE RECENT TAKING LIPITOR 20 MG TABLET 1 TABLET ORALLY ONCE A DAY, NOTES: 06/15 TAKING ADVAIR DISKUS 100-50 MCG/DOSE AEROSOL POWDER BREATH ACTIVATED 1 PUFF INHALATION TWICE A DAY TAKING TRAMADOL HCL 50 MG TABLET 2 ORALLY Q8H PRN MDD6 #100 TAB SHOULD LAST 30 DAYS NOT-TAKING PREDNISONE 1 TAB ORAL , NOTES: 10MG AND WEANING DOWN NOT-TAKING SIMVASTATIN 20 20MG TABLET DIRECTED ORAL DAILY, NOTES: 6/2 PM NOT-TAKING ALBUTEROL SULFATE (2.5 MG/3ML) 0.083% NEBULIZATION SOLUTION 3 ML NEEDED INHALATION THREE TIMES A DAY NOT-TAKING METHYLPHENIDATE HCL 5 MG TABLET 1 TABLET ON AN EMPTY STOMACH ORALLY TWICE A DAY NOT-TAKING HYDROXYZINE PAMOATE 25 MG CAPSULE 1 CAPSULE NEEDED ORALLY BID NOT-TAKING VESICARE 10 MG TABLET 1 TABLET ORALLY ONCE A DAY NOT-TAKING METAXALONE 800 MG TABLET 1 TABLET ORALLY THREE TIMES A DAY NOT-TAKING CLONAZEPAM 0.5 MG TABLET 1 TABLET AT BEDTIME ORALLY ONLY NEEDED NOT-TAKING RITALIN 20MG TABLET 1 TABLET ORALLY TWICE DAILY NOT-TAKING REQUIP 1 MG TABLET 1 1/2 TABLET ORALLY TWICE A DAY NOT-TAKING ANDROGEL PUMP 12.5 MG/ACT (1%) GEL TRANSDERMAL NOT-TAKING MELOXICAM 15 MG TABLET 1 TABLET ORALLY ONCE A DAY NOT-TAKING CEFDINIR 300 MG CAPSULE 1 CAPSULE ORALLY EVERY 12 HRS NOT-TAKING PREDNISONE 10 MG TABLET 1 TABLET ORALLY ONCE A DAY NOT-TAKING HYOSCYAMINE SULFATE 0.125 MG TABLET 1 TABLET BEFORE MEALS NEEDED ORALLY EVERY 4 HRS NOT-TAKING LOVAZA 1 GM CAPSULE 2 CAPSULES ORALLY TWICE A DAY NOT-TAKING CYMBALTA 30 MG CAPSULE DELAYED RELEASE PARTICLES 1 CAPSULE ORALLY DAILY NOT-TAKING LOPERAMIDE HCL 2 MG CAPSULE 1 CAPSULE ORALLY 8 TIME(S) A DAY NOT-TAKING NITRO-BID 2 % OINTMENT DIRECTED TRANSDERMAL NOT-TAKING HYDROCODONE-ACETAMINOPHEN 5-325 MG TABLET 1 TABLET NEEDED ORALLY EVERY 6 HRS NOT-TAKING PAROXETINE HCL 40 MG TABLET 1 TABLET IN THE MORNING ORALLY ONCE A DAY MEDICATION LIST REVIEWED AND RECONCILED WITH THE PATIENT PAST MEDICAL HISTORY PTSD ALLERGIC RHINITIS ANXIETY ASTHMA 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 FLAT FOOT INSOMNIA 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 DEPRESSION 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 PALPITATIONS PANIC DISORDER MIGRAINE HEADACHE ABNORMAL EKG SLEEP APNEA HYPERLIPIDEMIA VITAMIN D DEFICIENCY SPRAIN OF UNSPECIFIED SITE OF KNEE AND LEG DROWSINESS RESTLESS LEG SYNDROME ED AR-FOUND ON AN EKG PINCHED NERVE LEFT LOW BACK ALLERGIES BEE STINGS: SKIN RASH/HIVES - ALLERGY SOCIAL HISTORY GENERAL: TOBACCO USE ARE YOU A:NEVER SMOKER LATEX QUESTIONNAIRE LATEX ALLERGY : HAVE YOU EVER DEVELOPED ANY TYPE OF REACTION AFTER HANDLING LATEX PRODUCTS SUCH RUBBER GLOVES, CONDOMS, DIAPHRAGMS, BALLOONS, SOCKS, OR UNDERWEAR?NO LATEX ALLERGY : HAVE YOU EVER DEVELOPED ANY TYPE OF REACTION DURING OR AFTER DENTAL APPOINTMENT, VAGINAL/RECTAL EXAMINATION, SURGICAL PROCEDURE, OR ANY OTHER EXPOSURE?NO LATEX RISK : HAVE YOU EVER HAD ANY DIFFICULTY BREATHING OR HIVES AFTER EATING OR HANDLING ANY FRUITS, OR VEGETABLES; SUCH KIWI, BANANAS, STONE FRUITS, OR CHESTNUTSNO LATEX RISK : DO YOU HAVE A PREVIOUS PERSONAL HISTORY OF MORE THAN NINE SURGERIES, SPINA BIFIDA, OR REPEATED CATHERIZATIONS? NO LATEX RISK : ARE YOU FREQUENTLY EXPOSED TO LATEX PRODUCTS IN YOUR OCCUPATION? NOT SURE IF THEY USE LATEX GLOVES AT WORK OR NOT DATE ASKED : 09/03/2020 ALCOHOL USE: NO. ALCOHOL SCREENING POINTS: 1, INTERPRETATION: NEGATIVE. RECREATIONAL DRUG USE DENIES. CAFFEINE 1-2/DAY. SEXUAL HX HAD SEX IN THE LAST 12 MONTHS (VAGINAL, ORAL, OR ANAL)?: YES, WITH: WOMEN ONLY, USE PROTECTION?: YES, HOW OFTEN?: ALL OF THE TIME, HAVE YOU EVER HAD AN STD?: NO. BAPTISM NO RESTORATIONIST BELIEFS THAT WOULD IMPACT HEALTH CARE. LANGUAGE KYRGYZ. EDUCATION LEVEL OF EDUCATION:NOT FINISHED COLLEGE LEARNING BARRIERS / SPECIAL NEEDS CHANGE FROM LAST VISIT?NO BARRIERS TO LEARNING?NO HEARING IMPAIRED?NO VISION IMPAIRED?NO COGNITIVELY IMPAIRED?NO READINESS TO LEARN?YES LEARNING PREFERENCES?YES :DEMONSTRATION/VERBAL INSTRUCTION, OTHER (PLEASE COMMENT) HANDS ON LEARNING CAPABILITIES PRESENT?YES EMOTIONAL BARRIERS?NO SPECIAL DEVICES?NO HEAD RESIDENT NEEDED?NO DOMESTIC VIOLENCE DO YOU FEEL SAFE IN YOUR ENVIRONMENT?YES DIET: REGULAR. EXERCISE: DAILY. MARITAL STATUS: . OTHERS AT HOME: APPLICATIONS INTERN TO 2 GRANDCHILDREN. - HAS THE PATIENT BEEN EDUCATED REGARDING HIS/HER PLAN OF CARE?YES HAS THE PATIENT BEEN EDUCATED REGARDING PAIN, THE RISK FOR PAIN, THE IMPORTANCE OF EFFECTIVE PAIN MANAGEMENT, AND THE PAIN ASSESSMENT PROCESS?YES ADVANCE DIRECTIVE ADVANCE DIRECTIVE DISCUSSED WITH PATIENT:YES 06/17/2020 PT DOES NOT HAVE ANY ADVANCED DIRECTIVES AND HE DECLINES INFORMATION ON HCP AT THIS TIME. REVIEW OF SYSTEMS CONSTITUTIONAL: ANY RECENT FEVER NO . CHILLS NO . WEIGHT CHANGE OF UNKNOWN REASONS NO . GASTROENTEROLOGY: NEW UNEXPLAINABLE CHANGES IN BOWEL CONTROL NO . CONSTIPATION NO . GENITOURINARY: ANY NEW CHANGE IN BLADDER CONTROL? NO . NEUROLOGY: NEW ONSET DIZZINESS OR NEUROLOGICAL CHANGES NOT MENTIONED NO . NEW NUMBNESS OR PAIN PATTERNS NOT MENTIONED AND PERTINENT TO TODAY'S VISIT NO . CARDIOLOGY: NEW CHEST PRESSURE NO . NEW CHEST PAIN NO . RESPIRATORY: UNEXPLAINABLE COUGH NO . NEW SHORTNESS OF BREATH NO . VITAL SIGNS WT 219.0 LBS, HT 5'5'', BMI 36.44 INDEX, BP 121/70 MM HG, HR 69 /MIN, RR 18 /MIN, TEMP 98.0 F, OXYGEN SAT % 96%, SAFE IN ENV? (Y/N) YES, NA INITIALS AW 1411, REVIEWED BY: NEFTALY CASTANON MA. EXAMINATION GENERAL EXAMINATION: GENERALAWAKE,ALERT ,PLEASANT . PSYCHAFFECT NORMAL . LUNGS:LUNG [place] ARE CLEAR TO AUSCULTATION BILATERALLY. GOOD MOVEMENT OF AIR . HEART:S1, S2 IN A REGULAR RATE AND RHYTHM. NO SIGNIFICANT MURMURS, RUBS OR GALLOPS NOTED . 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 PATIENT WILL CALL US WITH INSURANCE INFORMATION ON WHERE TO SEND ANY REFILLS HIS INSURANCE HAS CHANGED TO [place]. PROCEDURE CODES FA211 ESTABILISHED PATIENT [facility] FACILITY CHARGE DISPOSITION & COMMUNICATION FOLLOW UP 3 MONTHS (REASON: MEDICATION MANAGEMENT/URINE TOXICOLOGY/CHECK ON LUMBAR SURGERY) ELECTRONICALLY SIGNED BY RUTHIE JOHNSON ON 09/06/2020 AT 04:01 PM EST DISCLAIMER : THIS IS A VISIT SUMMARY EXTRACTED FROM THE [employer] CHART. IT IS NOT A COPY OF THE [employer] PROGRESS NOTE. [place]
== END ==
LOC: M PAIN 14:00
PROVIDERS: ATTEND Nurse Practitioner Family
DX: M51.27 Other intervertebral disc displacement, lumbosacral region (principal); J45.909 Unspecified asthma, uncomplicated; G47.00 Insomnia, unspecified; G43.909 Migraine, unspecified, not intractable, without status migrainosus; G47.30 Sleep apnea, unspecified; E55.9 Vitamin D deficiency, unspecified; G25.81 Restless legs syndrome; I25.2 Old myocardial infarction; Z86.59 Personal history of other mental and behavioral disorders; Z91.030 Bee allergy status; Z79.82 Long term (current) use of aspirin; Z79.891 Long term (current) use of opiate analgesic; Z79.899 Other long term (current) drug therapy

== ENCOUNTER → 2020-10-29 | Outpatient (REF) | payer OTHER | LOC: M SMT 16:53 | PROVIDERS: ATTEND Nurse Practitioner Women's Health | DX: N20.0 Calculus of kidney (principal) ==

== ENCOUNTER → 2020-10-29 | Outpatient (CLI) | payer OTHER ==
[2020-10-29 13:19] LABS: BASO % 0.5 % (0.0-1.0); EOS # 0.1 10^3/uL (0.0-0.5); EOS % 1.3 % (0.0-3.0); HEMOGLOBIN 14.4 g/dl (13.5-17.5); LYMPH # 1.8 10^3/uL (1.5-5.0); LYMPH % 33.3 % (24.0-44.0); MEAN CORPUSCULAR HEMOGLOBIN 31.2 pg (27.0-33.0); MEAN CORPUSCULAR HGB CONC 34.3 g/dl (32.0-36.5); MEAN CORPUSCULAR VOLUME 90.9 fl (80.0-96.0); MONO # 0.5 10^3/uL (0.0-0.8); MONO % 8.8 % (2.0-8.0); NEUTROPHILS % 55.4 % (36.0-66.0); PLATELET COUNT, AUTOMATED 196 10^3/uL (150-450); RED BLOOD COUNT 4.62 10^6/uL (4.30-6.10); WHITE BLOOD COUNT 5.5 10^3/uL (4.0-10.0)
[2020-10-29 13:52] LABS: ALBUMIN 3.8 GM/DL (3.2-5.2); ALT/SGPT 28 U/L (12-78); BILIRUBIN,TOTAL 0.2 MG/DL (0.2-1.0); BLOOD UREA NITROGEN 24 MG/DL (7-18); CALCIUM LEVEL 9.1 MG/DL (8.5-10.1); CARBON DIOXIDE LEVEL 23 MEQ/L (21-32); CHLORIDE LEVEL 109 MEQ/L (98-107); CHOLESTEROL LEVEL 204 MG/DL (<200); CPK CREATINE PHOSPHOKINASE 102 U/L (39-308); CREATININE FOR GFR 1.23 MG/DL (0.70-1.30); GLOMERULAR FILTRATION RATE > 60.0 (>60); GLUCOSE, FASTING 79 MG/DL (70-100); HDL CHOLESTEROL 50 MG/DL (>40); LDL CHOLESTEROL 120 MG/DL (<100); NON-HDL-C 154 MG/DL; POTASSIUM SERUM 4.4 MEQ/L (3.5-5.1); SODIUM LEVEL 140 MEQ/L (136-145); TOTAL PROTEIN 6.9 GM/DL (6.4-8.2); TRIGLYCERIDES LEVEL 169 MG/DL (<150)
== END ==
LOC: M WUC 10:41
PROVIDERS: ATTEND Physician Assistant Medical
DX: E78.2 Mixed hyperlipidemia (principal); R06.02 Shortness of breath; R00.2 Palpitations; E66.9 Obesity, unspecified; Z82.49 Family history of ischemic heart disease and other diseases of the circulatory system; R94.31 Abnormal electrocardiogram [ECG] [EKG]; I10 Essential (primary) hypertension; R07.2 Precordial pain

== ENCOUNTER → 2020-10-29 | Outpatient (CLI) | payer OTHER | LOC: M WUC 10:51 | PROVIDERS: ATTEND Physician Assistant Medical | DX: E55.9 Vitamin D deficiency, unspecified (principal) ==

== ENCOUNTER → 2020-10-29 | Outpatient (CLI) | payer OTHER ==
[2020-10-29 13:19] LABS: BASO % 0.5 % (0.0-1.0); EOS # 0.1 10^3/uL (0.0-0.5); EOS % 0.9 % (0.0-3.0); HEMATOCRIT 42.7 % (42.0-52.0); HEMOGLOBIN 14.6 g/dl (13.5-17.5); LYMPH # 1.8 10^3/uL (1.5-5.0); MEAN CORPUSCULAR HEMOGLOBIN 31.1 pg (27.0-33.0); MEAN CORPUSCULAR HGB CONC 34.2 g/dl (32.0-36.5); MEAN CORPUSCULAR VOLUME 90.9 fl (80.0-96.0); MONO # 0.5 10^3/uL (0.0-0.8); MONO % 8.2 % (2.0-8.0); NEUTROPHILS # 3.1 10^3/uL (1.5-8.5); NEUTROPHILS % 56.3 % (36.0-66.0); PLATELET COUNT, AUTOMATED 207 10^3/uL (150-450); WHITE BLOOD COUNT 5.5 10^3/uL (4.0-10.0)
[2020-10-29 14:01] LABS: ALT/SGPT 28 U/L (12-78); BILIRUBIN,TOTAL 0.3 MG/DL (0.2-1.0); BLOOD UREA NITROGEN 26 MG/DL (7-18); CALCIUM LEVEL 9.4 MG/DL (8.5-10.1); CARBON DIOXIDE LEVEL 27 MEQ/L (21-32); CHLORIDE LEVEL 112 MEQ/L (98-107); CHOLESTEROL LEVEL 210 MG/DL (<200); CHOLESTEROL RISK RATIO 4.117 (<5); GLOMERULAR FILTRATION RATE > 60.0 (>60); GLUCOSE, FASTING 85 MG/DL (70-100); HDL CHOLESTEROL 51 MG/DL (>40); LDL CHOLESTEROL 125 MG/DL (<100); NON-HDL-C 159 MG/DL; POTASSIUM SERUM 4.5 MEQ/L (3.5-5.1); SODIUM LEVEL 142 MEQ/L (136-145); TRIGLYCERIDES LEVEL 169 MG/DL (<150)
== END ==
LOC: M WUC 10:44
PROVIDERS: ATTEND Nurse Practitioner Family
DX: E78.5 Hyperlipidemia, unspecified (principal); I10 Essential (primary) hypertension; E66.9 Obesity, unspecified

== ENCOUNTER → 2020-10-29 | Outpatient (CLI) | payer OTHER ==
[2020-10-29 13:48] LABS: BLOOD UREA NITROGEN 26 MG/DL (7-18); CALCIUM LEVEL 9.5 MG/DL (8.5-10.1); CARBON DIOXIDE LEVEL 26 MEQ/L (21-32); CHLORIDE LEVEL 110 MEQ/L (98-107); CREATININE FOR GFR 1.28 MG/DL (0.70-1.30); GLOMERULAR FILTRATION RATE > 60.0 (>60); GLUCOSE, FASTING 79 MG/DL (70-100); POTASSIUM SERUM 4.7 MEQ/L (3.5-5.1); SODIUM LEVEL 142 MEQ/L (136-145)
== END ==
LOC: M WUC 10:48
PROVIDERS: ATTEND Nurse Practitioner Family
DX: N20.0 Calculus of kidney (principal)

== ENCOUNTER → 2020-10-29 | Outpatient (CLI) | payer OTHER ==
--- NOTE | 2020-10-29 10:20 | REP ---
INDICATION: ABD PAIN COMPARISON: None. TECHNIQUE: Real time vickers scale ultrasound examination using curved array transducer. FINDINGS: Liver is normal in contour, size, and echogenicity without focal hepatic lesions identified. Pancreas is incompletely evaluated due to interposed bowel gas. The gallbladder is normal and without gallstones, wall thickening, or pericholecystic fluid. No biliary ductal dilatation is appreciated and the common bile duct measures 3.8 mm diameter. Right kidney is normal in reniform shape without hydronephrosis and measures 11.2 x 5.8 x 5.3 cm with 10 mm cortical cyst. No ascites in the visualized right upper quadrant. IMPRESSION: Essentially normal limited right upper quadrant ultrasound <Electronically signed by Naif Avila > 10/29/20 1019
== END ==
LOC: M RAD 09:34
PROVIDERS: ATTEND Nurse Practitioner Family
DX: R10.11 Right upper quadrant pain (principal); N20.0 Calculus of kidney; E55.9 Vitamin D deficiency, unspecified; E78.5 Hyperlipidemia, unspecified; R06.02 Shortness of breath; R00.2 Palpitations; E66.9 Obesity, unspecified; Z82.49 Family history of ischemic heart disease and other diseases of the circulatory system; R94.31 Abnormal electrocardiogram [ECG] [EKG]; I10 Essential (primary) hypertension; R07.2 Precordial pain

== ENCOUNTER → 2020-12-02 | Outpatient (CLI) | payer OTHER ==
--- NOTE | 2020-12-07 15:03 | ECWPNPC ---
PATIENT NAME: ROSHNI PRECIADO : 1975 GENDER: MALE VISIT DATE: 12/02/2020 DISCHARGE DATE: 12/02/20 1552 VISIT LOCKED DATE TIME: PHYSICIAN: LALIT RECIO RESOURCE: LALIT RECIO REASON FOR APPOINTMENT 1. MEDICATION MANAGEMENT/URINE TOXICOLOGY/CHECK ON LUMBAR SURGERY - RUNNING LATE HISTORY OF PRESENT ILLNESS DEPRESSION SCREENING: PHQ-9 LITTLE INTEREST OR PLEASURE IN DOING THINGSNEARLY EVERY DAY FEELING DOWN, DEPRESSED, OR HOPELESSNEARLY EVERY DAY TROUBLE FALLING OR STAYING ASLEEP, OR SLEEPING TOO MUCHNEARLY EVERY DAY FEELING TIRED OR HAVING LITTLE ENERGYNEARLY EVERY DAY POOR APPETITE OR OVEREATING NEARLY EVERY DAY FEELING BAD ABOUT YOURSELF-OR THAT YOU ARE A FAILURE OR HAVE LET YOURSELF OR YOUR FAMILY DOWN MORE THAN HALF THE DAYS TROUBLE CONCENTRATING ON THINGS, SUCH READING THE NEWSPAPER OR WATCHING TELEVISION MORE THAN HALF THE DAYS MOVING OR SPEAKING SO SLOWLY THAT OTHER PEOPLE COULD HAVE NOTICED. OR THE OPPOSITE- BEING SO FIDGETY OR RESTLESS THAT YOU HAVE BEEN MOVING AROUND A LOT MORE THAN USUALNOT AT ALL THOUGHTS THAT YOU WOULD BE BETTER OFF , OR OF HURTING YOURSELF IN SOME WAY?NOT AT ALL TOTAL SCORE:19 INTERPRETATIONMODERATELY SEVERE DEPRESSION PHQ-2 (2015 EDITION) LITTLE INTEREST OR PLEASURE IN DOING THINGS?NEARLY EVERY DAY FEELING DOWN, DEPRESSED, OR HOPELESS?NEARLY EVERY DAY TOTAL SCORE6 GENERAL: HERE FOR FOLLOW-UP AND MANAGEMENT OF CHRONIC LOW BACK PAIN. FOLLOWING WITH [place] SURGEON IN REGARD TO LUMBAR DISC PROTRUSION. HAD MRI OF THE LUMBAR SPINE. 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 FINDS CURRENT CHRONIC PAIN MEDICATION SOMEWHAT HELPFUL AT REDUCING PAIN AND KEEPING HIM FUNCTIONAL. DENIES ADVERSE SIDE EFFECTS FROM THE MEDICATION. -. FALL RISK SCREENING: SCREENING : NO FALLS REPORTED IN THE LAST YEAR. PAIN SCREENING: PATIENT HAS A COMPLAINT OF ACUTE OR CHRONIC PAIN :YES LOCATION OF PAIN:LOW BACK BACK OF LEG AND ON THE SIDE INTENSITY OF PAIN (SCALE OF 1 TO 10):3 WHAT DOES YOUR PAIN FEEL LIKE:ACHING, CONTINOUS, THROBBING DURATION:CONTINOUS, CONSTANT PAIN IS INCREASED BY:ACTIVITIES, PROLONGED STANDING PAIN IS DECREASED BY:USE OF PAIN MEDICATIONS NURSING NOTE: -. PAIN CENTER INTAKE QUESTIONS: DO YOU HAVE A HISTORY OF MRSA? :NO DO YOU TAKE A BLOOD THINNERS? :NO DO YOU HAVE ANY BLEEDING DISORDERS? :NO ANY NEW NUMBNESS OR WEAKNESS IN YOUR LEGS OR ARMS? :NO ANY PACEMAKER,DEFIBRILLATOR, OR DORSAL COLUMN STIMULATOR? :NO DO YOU HAVE ANY RASHES OR OPEN SORES? :NO ARE YOU ALLERGIC TO IV DYE? :NO ARE YOU DIABETIC? :NO ANY NEW PROBLEMS WITH YOUR MEDICATIONS? :NO HAVE YOU RECEIVED A VACCINE IN THE PAST 30 DAYS? :NO DO YOU PLAN TO RECEIVE A VACCINE IN THE NEXT 21 DAYS? :NO DO YOU NEED ANY PRESCRIPTION? :YES MAY NEED TRAMADOL DO YOU TAKE ANY IMMUNOSUPPRESSIVE MEDICATIONS? :NO IS THERE A CHANCE YOU COULD BE ? :NO ARE YOU BREAST FEEDING? :NO CURRENT MEDICATIONS TAKING MAGNESIUM OXIDE 400 MG CAPSULE ORALLY DAILY TAKING CARAFATE 1 GM TABLET 1 TABLET ORALLY FOUR TIMES DAILY TAKING CETIRIZINE HCL 10 MG TABLET 1 TABLET ORALLY ONCE A DAY TAKING EXCEDRIN TENSION HEADACHE 500-65 MG TABLET DIRECTED ORALLY TAKING MECLIZINE HCL 25 MG TABLET 1 TABLET NEEDED ORALLY ONCE A DAY TAKING MULTI COMPLETE CAPSULE 1 CAP ORALLY DAILY TAKING NEXIUM 40 MG CAPSULE DELAYED RELEASE 1 CAPSULE ORALLY BID TAKING PATANASE 0.6 % SOLUTION 2 SPRAYS NASALLY TWICE A DAY TAKING VITAMIN D3 3000 UNIT TABLET 1 TABLET ORALLY ONCE A DAY TAKING GENTEAL 0.3 % SOLUTION 1 DROP INTO AFFECTED EYE NEEDED OPHTHALMIC TWICE DAILY TAKING RIBOFLAVIN 100 MG TABLET 2 TABLET WITH A MEAL ORALLY TWICE DAILY TAKING VITAMIN D (ERGOCALCIFEROL) 24259 UNIT CAPSULE 1 CAPSULE ORALLY WEEKLY TAKING METOPROLOL SUCCINATE 50 MG TABLET EXTENDED RELEASE ORALLY DAILY TAKING FENOFIBRATE 54 MG TABLET 1 TABLET WITH A MEAL ORALLY ONCE A DAY TAKING ROPINIROLE HCL 1 MG TABLET 1 TAB ORALLY THREE TIMES DAILY TAKING PROBIOTIC - CAPSULE ORALLY DAILY TAKING RANEXA 500 MG TABLET EXTENDED RELEASE 12 HOUR 1 TABLET ORALLY TWICE A DAY TAKING DICYCLOMINE HCL 10 MG CAPSULE 1 CAP ORALLY THREE TIMES A DAY TAKING ZONISAMIDE 50 MG CAPSULE 1 CAPSULE IN AM, 2 CAPSULES AT BEDTIME ORALLY TWICE A DAY TAKING FISH OIL 1000 MG CAPSULE 2 CAPSULES ORALLY BID TAKING ZOLMITRIPTAN 5 MG TABLET 1 TABLET NEEDED ONE TIME ORALLY ONCE A DAY TAKING EPINEPHRINE HCL (ANAPHYLAXIS) 1 MG/ML SOLUTION INJECTION , NOTES: NEVER TAKING BACLOFEN 10 MG TABLET 1 TABLET WITH FOOD OR MILK ORALLY THREE TIMES A DAY TAKING ZOMIG ZMT 5 MG TABLET DISPERSIBLE DIRECTED ORALLY PRN FOR MIGRAINE TAKING DOCUSATE SODIUM 100 MG CAPSULE 1 CAPSULE NEEDED ORALLY BID TAKING RITALIN 20 MG TABLET 1 TABLET ON AN EMPTY STOMACH ORALLY TWICE A DAY TAKING CPAP MACHINE DIRECTED , NOTES: USES OCCASSIONALLY TAKING EXTRA STRENGTH ACETAMINOPHEN 2 TABS ORALLY FOUR TIMES DAILY NEEDED TAKING ASPIRIN 81 81 MG TABLET CHEWABLE 1 TABLET ORALLY ONCE A DAY TAKING ALBUTEROL SULFATE HFA 108 (90 BASE) MCG/ACT AEROSOL SOLUTION 2 PUFFS NEEDED INHALATION EVERY 4 HRS TAKING FIBER LAXATIVE 625 MG TABLET 1 TABLET NEEDED ORALLY FOUR TIMES A DAY TAKING LIDODERM 5 % PATCH 1 PATCH TO INTACT SKIN REMOVE AFTER 12 HOURS EXTERNALLY ONCE A DAY, NOTES: NONE RECENT TAKING LIPITOR 20 MG TABLET 1 TABLET ORALLY ONCE A DAY TAKING ADVAIR DISKUS 100-50 MCG/DOSE AEROSOL POWDER BREATH ACTIVATED 1 PUFF INHALATION TWICE A DAY TAKING TRAMADOL HCL 50 MG TABLET 2 ORALLY Q8H PRN MDD6 #100 TAB SHOULD LAST 30 DAYS TAKING CIALIS 5MG TABLET 1 TABLET ORALLY ONCE A DAY NOT-TAKING PREDNISONE 1 TAB ORAL , NOTES: 10MG AND WEANING DOWN NOT-TAKING SIMVASTATIN 20 20MG TABLET DIRECTED ORAL DAILY, NOTES: 6/2 PM NOT-TAKING ALBUTEROL SULFATE (2.5 MG/3ML) 0.083% NEBULIZATION SOLUTION 3 ML NEEDED INHALATION THREE TIMES A DAY NOT-TAKING METHYLPHENIDATE HCL 5 MG TABLET 1 TABLET ON AN EMPTY STOMACH ORALLY TWICE A DAY NOT-TAKING HYDROXYZINE PAMOATE 25 MG CAPSULE 1 CAPSULE NEEDED ORALLY BID NOT-TAKING VESICARE 10 MG TABLET 1 TABLET ORALLY ONCE A DAY NOT-TAKING METAXALONE 800 MG TABLET 1 TABLET ORALLY THREE TIMES A DAY NOT-TAKING CLONAZEPAM 0.5 MG TABLET 1 TABLET AT BEDTIME ORALLY ONLY NEEDED NOT-TAKING RITALIN 20MG TABLET 1 TABLET ORALLY TWICE DAILY NOT-TAKING REQUIP 1 MG TABLET 1 1/2 TABLET ORALLY TWICE A DAY NOT-TAKING ANDROGEL PUMP 12.5 MG/ACT (1%) GEL TRANSDERMAL NOT-TAKING MELOXICAM 15 MG TABLET 1 TABLET ORALLY ONCE A DAY NOT-TAKING CEFDINIR 300 MG CAPSULE 1 CAPSULE ORALLY EVERY 12 HRS NOT-TAKING PREDNISONE 10 MG TABLET 1 TABLET ORALLY ONCE A DAY NOT-TAKING HYOSCYAMINE SULFATE 0.125 MG TABLET 1 TABLET BEFORE MEALS NEEDED ORALLY EVERY 4 HRS NOT-TAKING LOVAZA 1 GM CAPSULE 2 CAPSULES ORALLY TWICE A DAY NOT-TAKING CYMBALTA 30 MG CAPSULE DELAYED RELEASE PARTICLES 1 CAPSULE ORALLY DAILY NOT-TAKING LOPERAMIDE HCL 2 MG CAPSULE 1 CAPSULE ORALLY 8 TIME(S) A DAY NOT-TAKING NITRO-BID 2 % OINTMENT DIRECTED TRANSDERMAL NOT-TAKING HYDROCODONE-ACETAMINOPHEN 5-325 MG TABLET 1 TABLET NEEDED ORALLY EVERY 6 HRS NOT-TAKING PAROXETINE HCL 40 MG TABLET 1 TABLET IN THE MORNING ORALLY ONCE A DAY MEDICATION LIST REVIEWED AND RECONCILED WITH THE PATIENT PAST MEDICAL HISTORY PTSD ALLERGIC RHINITIS ANXIETY ASTHMA 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 FLAT FOOT INSOMNIA 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 DEPRESSION 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 PALPITATIONS PANIC DISORDER MIGRAINE HEADACHE ABNORMAL EKG SLEEP APNEA HYPERLIPIDEMIA VITAMIN D DEFICIENCY SPRAIN OF UNSPECIFIED SITE OF KNEE AND LEG DROWSINESS RESTLESS LEG SYNDROME ED OH-FOUND ON AN EKG PINCHED NERVE LEFT LOW BACK ALLERGIES BEE STINGS: SKIN RASH/HIVES - ALLERGY SOCIAL HISTORY GENERAL: TOBACCO USE ARE YOU A:NEVER SMOKER LATEX QUESTIONNAIRE LATEX ALLERGY : HAVE YOU EVER DEVELOPED ANY TYPE OF REACTION AFTER HANDLING LATEX PRODUCTS SUCH RUBBER GLOVES, CONDOMS, DIAPHRAGMS, BALLOONS, SOCKS, OR UNDERWEAR?NO LATEX ALLERGY : HAVE YOU EVER DEVELOPED ANY TYPE OF REACTION DURING OR AFTER DENTAL APPOINTMENT, VAGINAL/RECTAL EXAMINATION, SURGICAL PROCEDURE, OR ANY OTHER EXPOSURE?NO LATEX RISK : HAVE YOU EVER HAD ANY DIFFICULTY BREATHING OR HIVES AFTER EATING OR HANDLING ANY FRUITS, OR VEGETABLES; SUCH KIWI, BANANAS, STONE FRUITS, OR CHESTNUTSNO LATEX RISK : DO YOU HAVE A PREVIOUS PERSONAL HISTORY OF MORE THAN NINE SURGERIES, SPINA BIFIDA, OR REPEATED CATHERIZATIONS? NO LATEX RISK : ARE YOU FREQUENTLY EXPOSED TO LATEX PRODUCTS IN YOUR OCCUPATION? NOT SURE IF THEY USE LATEX GLOVES AT WORK OR NOT DATE ASKED : 12/02/2020 ALCOHOL USE: NO. ALCOHOL SCREENING POINTS: 1, INTERPRETATION: NEGATIVE. RECREATIONAL DRUG USE DENIES. CAFFEINE 1-2/DAY. SEXUAL HX HAD SEX IN THE LAST 12 MONTHS (VAGINAL, ORAL, OR ANAL)?: YES, WITH: WOMEN ONLY, USE PROTECTION?: YES, HOW OFTEN?: ALL OF THE TIME, HAVE YOU EVER HAD AN STD?: NO. LATTER-DAY NO YARSANISM BELIEFS THAT WOULD IMPACT HEALTH CARE. LANGUAGE GRENADIAN. EDUCATION LEVEL OF EDUCATION:NOT FINISHED COLLEGE LEARNING BARRIERS / SPECIAL NEEDS CHANGE FROM LAST VISIT?NO BARRIERS TO LEARNING?NO HEARING IMPAIRED?NO VISION IMPAIRED?NO COGNITIVELY IMPAIRED?NO READINESS TO LEARN?YES LEARNING PREFERENCES?YES :DEMONSTRATION/VERBAL INSTRUCTION, OTHER (PLEASE COMMENT) HANDS ON LEARNING CAPABILITIES PRESENT?YES EMOTIONAL BARRIERS?NO SPECIAL DEVICES?NO MATCHER NEEDED?NO DOMESTIC VIOLENCE DO YOU FEEL SAFE IN YOUR ENVIRONMENT?YES DIET: REGULAR. EXERCISE: DAILY. MARITAL STATUS: . OTHERS AT HOME: CLIENT LEADER TO 2 GRANDCHILDREN. - HAS THE PATIENT BEEN EDUCATED REGARDING HIS/HER PLAN OF CARE?YES HAS THE PATIENT BEEN EDUCATED REGARDING PAIN, THE RISK FOR PAIN, THE IMPORTANCE OF EFFECTIVE PAIN MANAGEMENT, AND THE PAIN ASSESSMENT PROCESS?YES ADVANCE DIRECTIVE ADVANCE DIRECTIVE DISCUSSED WITH PATIENT:YES 06/17/2020 PT DOES NOT HAVE ANY ADVANCED DIRECTIVES AND HE DECLINES INFORMATION ON HCP AT THIS TIME. REVIEW OF SYSTEMS CONSTITUTIONAL: ANY RECENT FEVER NO . CHILLS NO . WEIGHT CHANGE OF UNKNOWN REASONS NO . GASTROENTEROLOGY: NEW UNEXPLAINABLE CHANGES IN BOWEL CONTROL NO . CONSTIPATION NO . GENITOURINARY: ANY NEW CHANGE IN BLADDER CONTROL? NO . NEUROLOGY: NEW ONSET DIZZINESS OR NEUROLOGICAL CHANGES NOT MENTIONED NO . NEW NUMBNESS OR PAIN PATTERNS NOT MENTIONED AND PERTINENT TO TODAY'S VISIT NO . CARDIOLOGY: NEW CHEST PRESSURE NO . PATIENT DENIES NO . RESPIRATORY: UNEXPLAINABLE COUGH NO . NEW SHORTNESS OF BREATH NO . VITAL SIGNS WT 224.6 LBS, HT 5'5'', BMI 37.37 INDEX, BP 127/75 MM HG, HR 69 /MIN, RR 18 /MIN, TEMP 98.2 F, OXYGEN SAT % 92%, SAFE IN ENV? (Y/N) YES, NA INITIALS MA 15:18T.DEBIBE CONNELL. EXAMINATION GENERAL EXAMINATION: GENERALAWAKE,ALERT ,PLEASANT . PSYCHAFFECT NORMAL . LUNGS:LUNG [place] ARE CLEAR TO AUSCULTATION BILATERALLY. GOOD MOVEMENT OF AIR . HEART:S1, S2 IN A REGULAR RATE AND RHYTHM. NO SIGNIFICANT MURMURS, RUBS OR GALLOPS NOTED . ASSESSMENTS LUMBOSACRAL SPONDYLOSIS WITHOUT MYELOPATHY - M47.817 (PRIMARY) TREATMENT LUMBOSACRAL SPONDYLOSIS WITHOUT MYELOPATHY REFILL TRAMADOL HCL TABLET, 50 MG, 2, ORALLY, Q8H PRN MDD6 #100 TAB SHOULD LAST 30 DAYS, 30 DAYS, 100, REFILLS 2 NOTES: ISTOP REGISTRY REVIEWED AND DEMONSTRATES COMPLLIANCE. RECENT URINE TOXICOLOGY REVIEWED. NO UNAUTHORIZED MEDICATIONS. NO ILLICIT SUBSTANCES AND PRESCRIBED MEDICATIONS WERE PRESENT. PROCEDURE CODES FA211 ESTABILISHED PATIENT [facility] CHARGE DISPOSITION & COMMUNICATION FOLLOW UP 3 MONTHS (REASON: PILL/CT/ID/UTOX) ELECTRONICALLY SIGNED BY RUTHIE JOHNSON ON 12/06/2020 AT 10:38 AM EDT DISCLAIMER : THIS IS A VISIT SUMMARY EXTRACTED FROM THE [employer] CHART. IT IS NOT A COPY OF THE [employer] PROGRESS NOTE. DAYANA
== END ==
LOC: M PAIN 14:45
PROVIDERS: ATTEND Nurse Practitioner Family
DX: M47.817 Spondylosis without myelopathy or radiculopathy, lumbosacral region (principal); G89.29 Other chronic pain; J45.909 Unspecified asthma, uncomplicated; G47.00 Insomnia, unspecified; G43.909 Migraine, unspecified, not intractable, without status migrainosus; G47.30 Sleep apnea, unspecified; E55.9 Vitamin D deficiency, unspecified; G25.81 Restless legs syndrome; Z86.59 Personal history of other mental and behavioral disorders; Z91.030 Bee allergy status; Z79.82 Long term (current) use of aspirin; Z79.891 Long term (current) use of opiate analgesic; Z79.899 Other long term (current) drug therapy

== ENCOUNTER → 2021-02-28 | Outpatient (CLI) | payer OTHER | LOC: M PAIN 14:45 | PROVIDERS: ATTEND Nurse Practitioner Family | DX: M47.817 Spondylosis without myelopathy or radiculopathy, lumbosacral region (principal); Z79.891 Long term (current) use of opiate analgesic; Z79.899 Other long term (current) drug therapy; Z79.82 Long term (current) use of aspirin ==

== ENCOUNTER → 2021-05-30 | Outpatient (CLI) | payer OTHER ==
--- NOTE | 2021-05-31 09:42 | REP ---
INDICATION: LBP W/ RADICULOPATHY. COMPARISON: 07/12/2010. MRI 06/03/2020. TECHNIQUE: Six views lumbosacral spine including flexion and extension lateral views. FINDINGS: There is no compression fracture. There is fixed slight anterolisthesis of L5 on S1 approximately 2-3 mm. This does not change with flexion and extension. There is slight narrowing at L5-S1. Posterior elements are intact. IMPRESSION: There is approximately 2-3 mm of anterolisthesis of L5 on S1 which does not change with flexion and extension. There is mild degenerative disc space narrowing at L5-S1. <Electronically signed by Akbar Frazier > 05/31/21 0938
--- NOTE | 2021-05-31 12:48 | REPVR ---
PROCEDURE INFORMATION: Exam: MR Lumbar Spine Without Contrast Exam date and time: 05/30/2021 7:35 PM Age: 45 years old Clinical indication: Low back pain; Additional info: Lbp w/ radiculopathy TECHNIQUE: Imaging protocol: Multiplanar magnetic resonance images of the lumbar spine without intravenous contrast. COMPARISON: CT Spine, lumbar w/o contrast 05/06/2020 9:41 AM FINDINGS: Vertebrae: There is 3 mm of grade 1 anterolisthesis of L5 with respect to S1. Normal vertebral body alignment is otherwise preserved. Vertebral body heights are within normal limits. Spinal cord: Normal signal. No cord compression. L1-L2: There is shallow disc bulging. There is mild facet hypertrophy. The spinal canal and neural foramina are patent. L2-L3: There is shallow disc bulging. There is mild facet hypertrophy. The spinal canal and neural foramina are patent. L3-L4: There is shallow disc bulging. There is mild facet hypertrophy. The spinal canal and neural foramina are patent. L4-L5: There is shallow disc bulging. There is mild facet hypertrophy. The spinal canal and neural foramina are patent. L5-S1: There is diffuse disc bulging/uncovering related to listhesis with a superimposed left paracentral/subarticular protrusion. This indents the thecal sac and narrows the left lateral recess. There is mild canal stenosis. There is [id number] bilateral neural foraminal narrowing. Soft tissues: Unremarkable. IMPRESSION: Degenerative disc disease and spondylosis. At L5/S1, changes contribute to [id number] bilateral neural foraminal narrowing and focal left lateral recess stenosis. Electronically signed by: Yasmeen Phillips On 05/31/2021 12:48:20 PM
== END ==
LOC: M RAD 18:17
PROVIDERS: ATTEND Neurological Surgery
DX: M51.17 Intervertebral disc disorders with radiculopathy, lumbosacral region (principal); M47.26 Other spondylosis with radiculopathy, lumbar region; M48.061 Spinal stenosis, lumbar region without neurogenic claudication

== ENCOUNTER 2021-09-23 16:58 | Emergency (ER) | payer OTHER ==
[~2021-09-23] VITALS: Ht 165.1 cm; Wt 97.7 kg
[2021-09-23 17:30] LABS: BASO % 0.3 % (0.0-1.0); EOS % 1.5 % (0.0-3.0); HEMATOCRIT 38.3 % (42.0-52.0); HEMOGLOBIN 13.6 g/dl (13.5-17.5); LYMPH % 40.4 % (24.0-44.0); MEAN CORPUSCULAR HEMOGLOBIN 30.9 pg (27.0-33.0); MEAN CORPUSCULAR HGB CONC 35.5 g/dl (32.0-36.5); NEUTROPHILS # 3.2 10^3/uL (1.5-8.5); PLATELET COUNT, AUTOMATED 227 10^3/uL (150-450); WHITE BLOOD COUNT 6.5 10^3/uL (4.0-10.0)
[2021-09-23 17:31] LABS: EOS # 0.1 10^3/uL (0.0-0.5); LYMPH # 2.6 10^3/uL (1.5-5.0); MONO # 0.5 10^3/uL (0.0-0.8)
[2021-09-23 18:00] LABS: CK-MB VALUE MASS 1.7 NG/ML (<3.6); MB/CK RELATIVE INDEX 0.99 (< OR =4)
[2021-09-23 18:08] LABS: ALBUMIN 3.6 GM/DL (3.2-5.2); ALT/SGPT 31 U/L (12-78); BILIRUBIN,DIRECT < 0.1 MG/DL (0.0-0.2); BILIRUBIN,TOTAL 0.3 MG/DL (0.2-1.0); BLOOD UREA NITROGEN 18 MG/DL (7-18); CALCIUM LEVEL 8.7 MG/DL (8.5-10.1); CARBON DIOXIDE LEVEL 23 MEQ/L (21-32); CHLORIDE LEVEL 114 MEQ/L (98-107); CREATININE FOR GFR 1.29 MG/DL (0.70-1.30); GLOMERULAR FILTRATION RATE > 60.0 (>60); GLUCOSE, FASTING 98 MG/DL (70-100); LIPASE 124 U/L (73-393); NT-PRO BNP 28 PG/ML (<125); SODIUM LEVEL 141 MEQ/L (136-145); TOTAL PROTEIN 6.6 GM/DL (6.4-8.2)
[2021-09-23] MEDS ORDERED: ISOVUE-370 76% 100ML VIAL As Ordered ONE (18:41)
[2021-09-23 18:59] LABS: CK-MB VALUE MASS 1.8 NG/ML (<3.6); MB/CK RELATIVE INDEX 1.18 (< OR =4)
[2021-09-23] MEDS ORDERED: TRAM50TA2 PO (19:59)
[2021-09-23 20:09] VITALS: BP 124/78
[2021-09-23] MEDS ORDERED: traMADol 50 MG TAB (BULK 4 TAB ED) PO ONE (20:20)
== END 2021-09-23 20:49 | disposition home or self-care (01) ==
LOC: M ED 16:58
DX: R07.9 Chest pain, unspecified (principal); I51.9 Heart disease, unspecified; F41.9 Anxiety disorder, unspecified; F32.9 Major depressive disorder, single episode, unspecified; Z87.442 Personal history of urinary calculi; Z79.899 Other long term (current) drug therapy; Z91.030 Bee allergy status
CPT/HCPCS: 71045; 71275; 80048; 80076; 82550; 82553; 83690; 83880; 84443; 84484; 85025; 93005; 93041; 94760; 99285; Q9967

== ENCOUNTER → 2021-10-03 | Outpatient (CLI) | payer OTHER ==
[~2021-10-03] MED LIST changes: +TRAM50TA2 PO
== END ==
LOC: M PAIN 15:00
PROVIDERS: ATTEND Nurse Practitioner Family
DX: M47.817 Spondylosis without myelopathy or radiculopathy, lumbosacral region (principal); G89.29 Other chronic pain; J45.909 Unspecified asthma, uncomplicated; G43.909 Migraine, unspecified, not intractable, without status migrainosus; G47.30 Sleep apnea, unspecified; E55.9 Vitamin D deficiency, unspecified; G25.81 Restless legs syndrome; Z86.59 Personal history of other mental and behavioral disorders; Z91.030 Bee allergy status; Z79.82 Long term (current) use of aspirin; Z79.899 Other long term (current) drug therapy

== ENCOUNTER → 2021-11-15 | Outpatient (CLI) | payer OTHER ==
[~2021-11-15] MED LIST changes: +GASTROGRAFIN SOLUTION 30ML (Q9963) As Ordered ONE; +ISOVUE-370 76% 100ML VIAL As Ordered ONE
== END ==
LOC: M RAD 15:42
PROVIDERS: ATTEND Nurse Practitioner Family
DX: N28.1 Cyst of kidney, acquired (principal); K76.0 Fatty (change of) liver, not elsewhere classified; R10.13 Epigastric pain
CPT/HCPCS: 74177; Q9963; Q9967

== ENCOUNTER → 2021-12-08 | Outpatient (CLI) | payer OTHER ==
[~2021-12-08] MED LIST changes: -GASTROGRAFIN SOLUTION 30ML (Q9963) As Ordered ONE; -ISOVUE-370 76% 100ML VIAL As Ordered ONE
== END ==
LOC: M PAIN 14:45
PROVIDERS: ATTEND Nurse Practitioner Family
DX: M51.16 Intervertebral disc disorders with radiculopathy, lumbar region (principal); G89.29 Other chronic pain; J45.909 Unspecified asthma, uncomplicated; G43.909 Migraine, unspecified, not intractable, without status migrainosus; G47.30 Sleep apnea, unspecified; E55.9 Vitamin D deficiency, unspecified; G25.81 Restless legs syndrome; Z86.59 Personal history of other mental and behavioral disorders; Z91.030 Bee allergy status; Z79.82 Long term (current) use of aspirin; Z79.891 Long term (current) use of opiate analgesic; Z79.899 Other long term (current) drug therapy

== ENCOUNTER 2022-02-09 19:00 | Emergency (ER) | payer OTHER ==
[~2022-02-09] VITALS: Ht 165.1 cm; Wt 94.8 kg
[2022-02-09 19:39] LABS: BASO % 0.4 % (0.0-1.0); EOS % 0.4 % (0.0-3.0); HEMATOCRIT 42.6 % (42.0-52.0); HEMOGLOBIN 15.2 g/dl (13.5-17.5); LYMPH # 2.4 10^3/uL (1.5-5.0); LYMPH % 34.4 % (24.0-44.0); MEAN CORPUSCULAR HEMOGLOBIN 30.4 pg (27.0-33.0); MEAN CORPUSCULAR HGB CONC 35.7 g/dl (32.0-36.5); MEAN CORPUSCULAR VOLUME 85.2 fl (80.0-96.0); MONO # 1.1 10^3/uL (0.0-0.8); MONO % 15.4 % (2.0-8.0); NEUTROPHILS # 3.3 10^3/uL (1.5-8.5); NEUTROPHILS % 48.7 % (36.0-66.0); PLATELET COUNT, AUTOMATED 232 10^3/uL (150-450); WHITE BLOOD COUNT 6.8 10^3/uL (4.0-10.0)
[2022-02-09 20:08] LABS: RSV AMPLIFICATION NEGATIVE (NEGATIVE)
[2022-02-09 20:13] LABS: BLOOD UREA NITROGEN 12 MG/DL (7-18); CALCIUM LEVEL 9.3 MG/DL (8.5-10.1); CARBON DIOXIDE LEVEL 19 MEQ/L (21-32); CHLORIDE LEVEL 111 MEQ/L (98-107); CREATININE FOR GFR 1.32 MG/DL (0.70-1.30); GLOMERULAR FILTRATION RATE > 60.0 (>60); GLUCOSE, FASTING 106 MG/DL (70-100); MAGNESIUM LEVEL 2.2 MG/DL (1.8-2.4); SODIUM LEVEL 140 MEQ/L (136-145)
[2022-02-09 20:18] LABS: CK-MB VALUE MASS < 1.0 NG/ML (<3.6); CPK CREATINE PHOSPHOKINASE 65 U/L (39-308); MB/CK RELATIVE INDEX 1.54 (< OR =4)
[2022-02-09 21:13] VITALS: O2SAT 96
[2022-02-09 22:09] VITALS: BP 129/86
== END 2022-02-09 22:11 | disposition home or self-care (01) ==
LOC: M ED 19:00
DX: U07.1 COVID-19 (principal); Z20.822 Contact with and (suspected) exposure to COVID-19; I25.2 Old myocardial infarction; I10 Essential (primary) hypertension; E78.5 Hyperlipidemia, unspecified; J45.909 Unspecified asthma, uncomplicated; G47.33 Obstructive sleep apnea (adult) (pediatric); N40.0 Benign prostatic hyperplasia without lower urinary tract symptoms; Z87.442 Personal history of urinary calculi; Z87.820 Personal history of traumatic brain injury; K58.9 Irritable bowel syndrome, unspecified; G43.909 Migraine, unspecified, not intractable, without status migrainosus; K21.9 Gastro-esophageal reflux disease without esophagitis; Z79.899 Other long term (current) drug therapy; Z91.030 Bee allergy status

== ENCOUNTER → 2022-03-22 | Outpatient (CLI) | payer OTHER | LOC: M RAD 16:22 | PROVIDERS: ATTEND Nurse Practitioner Family | DX: M51.16 Intervertebral disc disorders with radiculopathy, lumbar region (principal) ==

== ENCOUNTER → 2022-03-22 | Outpatient (CLI) | payer OTHER | LOC: M PAIN 14:45 | PROVIDERS: ATTEND Nurse Practitioner Family | DX: M51.16 Intervertebral disc disorders with radiculopathy, lumbar region (principal); G89.29 Other chronic pain; J45.909 Unspecified asthma, uncomplicated; G43.909 Migraine, unspecified, not intractable, without status migrainosus; G47.30 Sleep apnea, unspecified; E55.9 Vitamin D deficiency, unspecified; G25.81 Restless legs syndrome; I25.2 Old myocardial infarction; Z86.59 Personal history of other mental and behavioral disorders; Z91.030 Bee allergy status; Z79.82 Long term (current) use of aspirin; Z79.899 Other long term (current) drug therapy | CPT/HCPCS: 72114; G0463 ==

== ENCOUNTER → 2022-03-30 | Outpatient (CLI) | payer OTHER | LOC: M PAIN 15:30 | PROVIDERS: ATTEND Anesthesiology | DX: M79.18 Myalgia, other site (principal); M54.50 Low back pain, unspecified; G89.29 Other chronic pain; J45.909 Unspecified asthma, uncomplicated; G43.909 Migraine, unspecified, not intractable, without status migrainosus; G47.30 Sleep apnea, unspecified; E55.9 Vitamin D deficiency, unspecified; G25.81 Restless legs syndrome; I25.2 Old myocardial infarction; Z86.59 Personal history of other mental and behavioral disorders; Z91.030 Bee allergy status; Z79.82 Long term (current) use of aspirin; Z79.899 Other long term (current) drug therapy ==

== ENCOUNTER → 2022-05-29 | Outpatient (CLI) | payer OTHER | LOC: M CARPUL 15:13 | PROVIDERS: ATTEND Nurse Practitioner Family | DX: J45.998 Other asthma (principal); R13.10 Dysphagia, unspecified ==

== ENCOUNTER → 2022-05-29 | Outpatient (CLI) | payer OTHER | LOC: M RAD 15:29 | PROVIDERS: ATTEND Nurse Practitioner Family | DX: R13.10 Dysphagia, unspecified (principal) ==

== ENCOUNTER → 2022-06-28 | Outpatient (CLI) | payer OTHER ==
[~2022-06-28] MED LIST changes: +BUPIVACAINE HCL 0.25% 10ML VIAL As Ordered ONE; +BUPIVACAINE HCL 0.25% 30ML VIAL As Ordered ONE; +TRIAMCINOLONE ACETONIDE SUSP 40MG/ML 1ML VIAL As Ordered ONE
== END ==
LOC: M PAIN 14:30
PROVIDERS: ATTEND Anesthesiology
DX: M51.16 Intervertebral disc disorders with radiculopathy, lumbar region (principal); M54.2 Cervicalgia; G89.29 Other chronic pain; J45.909 Unspecified asthma, uncomplicated; G43.909 Migraine, unspecified, not intractable, without status migrainosus; G47.30 Sleep apnea, unspecified; E55.9 Vitamin D deficiency, unspecified; G25.81 Restless legs syndrome; I25.2 Old myocardial infarction; Z86.59 Personal history of other mental and behavioral disorders; Z91.030 Bee allergy status; Z79.82 Long term (current) use of aspirin; Z79.899 Other long term (current) drug therapy

== ENCOUNTER → 2022-09-13 | Outpatient (CLI) | payer OTHER ==
[~2022-09-13] MED LIST changes: -BUPIVACAINE HCL 0.25% 10ML VIAL As Ordered ONE; -BUPIVACAINE HCL 0.25% 30ML VIAL As Ordered ONE; -TRIAMCINOLONE ACETONIDE SUSP 40MG/ML 1ML VIAL As Ordered ONE
== END ==
LOC: M PAIN 14:30
PROVIDERS: ATTEND Anesthesiology
DX: M51.16 Intervertebral disc disorders with radiculopathy, lumbar region (principal); M54.2 Cervicalgia; G89.29 Other chronic pain; J45.909 Unspecified asthma, uncomplicated; G43.909 Migraine, unspecified, not intractable, without status migrainosus; G47.30 Sleep apnea, unspecified; E55.9 Vitamin D deficiency, unspecified; G25.81 Restless legs syndrome; I25.2 Old myocardial infarction; Z86.59 Personal history of other mental and behavioral disorders; Z91.030 Bee allergy status; Z79.82 Long term (current) use of aspirin; Z79.899 Other long term (current) drug therapy

== ENCOUNTER → 2022-10-15 | Outpatient (CLI) | payer OTHER ==
[2022-10-15 15:51] LABS: BASO % 0.5 % (0.0-1.0); EOS # 0.1 10^3/uL (0.0-0.5); EOS % 0.9 % (0.0-3.0); HEMATOCRIT 42.4 % (42.0-52.0); HEMOGLOBIN 14.8 g/dl (13.5-17.5); LYMPH # 1.9 10^3/uL (1.5-5.0); LYMPH % 29.9 % (24.0-44.0); MEAN CORPUSCULAR HEMOGLOBIN 30.9 pg (27.0-33.0); MEAN CORPUSCULAR HGB CONC 34.9 g/dl (32.0-36.5); MEAN CORPUSCULAR VOLUME 88.5 fl (80.0-96.0); MONO # 0.4 10^3/uL (0.0-0.8); MONO % 6.6 % (2.0-8.0); NEUTROPHILS # 3.9 10^3/uL (1.5-8.5); NEUTROPHILS % 61.5 % (36.0-66.0); PLATELET COUNT, AUTOMATED 219 10^3/uL (150-450); RED BLOOD COUNT 4.79 10^6/uL (4.30-6.10); WHITE BLOOD COUNT 6.4 10^3/uL (4.0-10.0)
[2022-10-15 16:14] LABS: URIC ACID 4.8 MG/DL (3.7-9.2)
[2022-10-15 16:16] LABS: C REACTIVE PROTEIN QUANTITATIV < 0.40 MG/DL (<1.0)
[2022-10-15 16:18] LABS: RHEUMATOID FACTOR QUANT < 3.5 IU/ML (<14)
[2022-10-15 16:21] LABS: ALKALINE PHOSPHATASE 48 U/L (46-116); ALT/SGPT 28 U/L (7.0-40); AST/SGOT 19 U/L (<34); BILIRUBIN,TOTAL 0.7 MG/DL (0.3-1.2); BLOOD UREA NITROGEN 19 MG/DL (9-23); CALCIUM LEVEL 8.5 MG/DL (8.5-10.1); CARBON DIOXIDE LEVEL 24 MMOL/L (20-31); CHLORIDE LEVEL 112 MMOL/L (98-107); CHOLESTEROL LEVEL 179 MG/DL (<200); CHOLESTEROL RISK RATIO 3.52 (<5); CREATININE FOR GFR 1.32 MG/DL (0.70-1.30); GLOMERULAR FILTRATION RATE > 60.0 (>60); GLUCOSE, FASTING 87 MG/DL (60-100); HDL CHOLESTEROL 50.8 MG/DL (>40); LDL CHOLESTEROL 101.6 MG/DL (<100); NON-HDL-C 128.2 MG/DL; POTASSIUM SERUM 4.7 MMOL/L (3.5-5.1); SODIUM LEVEL 141 MMOL/L (136-145); TOTAL 25(OH) VITAMIN D 69.5 NG/ML (20.0-100.0); TOTAL PROTEIN 6.7 G/DL (5.7-8.2); TRIGLYCERIDES LEVEL 133 MG/DL (<150)
[2022-10-15 16:25] LABS: ERYTHROCYTE SEDIMENTATION RATE 2 mm/hr (0-15)
== END ==
LOC: M LAB 15:04
PROVIDERS: ATTEND Nurse Practitioner Family
DX: M79.10 Myalgia, unspecified site (principal); M54.17 Radiculopathy, lumbosacral region; R06.00 Dyspnea, unspecified; I10 Essential (primary) hypertension; E78.5 Hyperlipidemia, unspecified; E66.9 Obesity, unspecified; E55.9 Vitamin D deficiency, unspecified

== ENCOUNTER 2023-01-22 10:55 | Emergency (ER) | payer OTHER ==
[~2023-01-22] VITALS: Ht 165.1 cm; Wt 100.7 kg
[~2023-01-22 10:55] MED LIST changes: -BACL10TA2; +BACL10TA2 PO; -CIAL5TAB; +CIAL5TAB PO; -ESOM40CA35; +ESOM40CA35 PO; -FENO54TA2; +FENO54TA2 PO; -METH20TA29; +METH20TA29 PO; -METO1TAB7; +METO1TAB7 PO; -ROPI1TAB3; +ROPI1TAB3 PO; -VITA50005; +VITA50005 PO; -ZOLM5TAB14; +ZOLM5TAB14 PO
[2023-01-22 11:42] LABS: BASO % 0.6 % (0.0-1.0); EOS % 0.3 % (0.0-3.0); HEMOGLOBIN 14.1 g/dl (13.5-17.5); LYMPH # 1.4 10^3/uL (1.5-5.0); LYMPH % 21.8 % (24.0-44.0); MEAN CORPUSCULAR HGB CONC 35.3 g/dl (32.0-36.5); MEAN CORPUSCULAR VOLUME 87.9 fl (80.0-96.0); MONO # 0.3 10^3/uL (0.0-0.8); NEUTROPHILS # 4.6 10^3/uL (1.5-8.5); NEUTROPHILS % 71.5 % (36.0-66.0); PLATELET COUNT, AUTOMATED 222 10^3/uL (150-450); RED BLOOD COUNT 4.55 10^6/uL (4.30-6.10); WHITE BLOOD COUNT 6.4 10^3/uL (4.0-10.0)
[2023-01-22] MEDS ORDERED: MED REC IN PROGRESS XX SCH (11:45)
[2023-01-22 12:04] LABS: LIPASE 36 U/L (12-53); PROTHROMBIN TIME 13.4 SECONDS (12.5-14.5)
[2023-01-22 12:05] LABS: CK-MB VALUE MASS 1.5 NG/ML (<3.6); PARTIAL THROMBOPLASTIN TIME 26.4 SECONDS (24.8-34.2)
[2023-01-22 12:06] LABS: ALBUMIN 3.9 G/DL (3.2-5.2); ALKALINE PHOSPHATASE 48 U/L (46-116); ALT/SGPT 29 U/L (7.0-40); AST/SGOT 16 U/L (<34); BILIRUBIN,DIRECT < 0.1 MG/DL (<0.4); BILIRUBIN,TOTAL 0.3 MG/DL (0.3-1.2); BLOOD UREA NITROGEN 18 MG/DL (9-23); CARBON DIOXIDE LEVEL 20 MMOL/L (20-31); CHLORIDE LEVEL 112 MMOL/L (98-107); CPK CREATINE PHOSPHOKINASE 103 U/L (46-171); CREATININE FOR GFR 1.19 MG/DL (0.70-1.30); GLOMERULAR FILTRATION RATE > 60.0 (>60); GLUCOSE, FASTING 98 MG/DL (60-100); MB/CK RELATIVE INDEX 1.45 (< OR =4); POTASSIUM SERUM 4.1 MMOL/L (3.5-5.1); SODIUM LEVEL 139 MMOL/L (136-145); TOTAL PROTEIN 6.6 G/DL (5.7-8.2)
[2023-01-22 12:08] LABS: FREE T4 0.69 NG/DL (0.89-1.76); THYROID STIMULATING HORMONE 2.389 uIU/ML (0.55-4.78)
[2023-01-22 12:28] LABS: RSV AMPLIFICATION NEGATIVE (NEGATIVE)
[2023-01-22] MEDS ORDERED: ISOVUE-370 76% 100ML VIAL As Ordered ONE (13:07)
[2023-01-22 13:22] LABS: CK-MB VALUE MASS < 1.0 NG/ML (<3.6)
[2023-01-22] MEDS ORDERED: ROPI1TAB86 PO (13:27)
[2023-01-22] MEDS ORDERED: ZONI100C67 PO ×2 (13:27)
[2023-01-22] MEDS ORDERED: RANO500T2 PO (13:27)
[2023-01-22] MEDS ORDERED: ATOR1TAB21 PO (13:27)
[2023-01-22 13:35] LABS: CPK CREATINE PHOSPHOKINASE 98 U/L (46-171); MB/CK RELATIVE INDEX 1.02 (< OR =4)
[2023-01-22] MEDS ORDERED: ERGO500029 PO (13:55)
[2023-01-22] MEDS ORDERED: VITA100093 PO (13:55)
[2023-01-22] MEDS ORDERED: HOME MED LIST COMPLETE! XX SCH (14:00)
[2023-01-22] MEDS ORDERED: KETOROLAC 30 MG/ML 1ML VIAL IV ONE (14:25)
[2023-01-22] MEDS ORDERED: KETO10TAB PO (14:57)
[2023-01-22 15:15] VITALS: BP 136/88; TEMP 98.8; O2SAT 100
== END 2023-01-22 15:23 | disposition home or self-care (01) ==
LOC: M ED 10:55
DX: R07.89 Other chest pain (principal); E78.5 Hyperlipidemia, unspecified; J45.909 Unspecified asthma, uncomplicated; F32.A Depression, unspecified; F43.10 Post-traumatic stress disorder, unspecified; G25.81 Restless legs syndrome; G47.33 Obstructive sleep apnea (adult) (pediatric); Z91.030 Bee allergy status
CPT/HCPCS: 71045; 71275; 80048; 80076; 82550; 82553; 83690; 84439; 84443; 84484; 85025; 85610; 85730; 87631; 93005; 93041; 94760; 96374; 99285; J1885; Q9967

== ENCOUNTER 2023-06-06 13:52 | Emergency (ER) | payer OTHER ==
[~2023-06-06] VITALS: Ht 165.1 cm; Wt 103.5 kg
[~2023-06-06 13:52] MED LIST changes: +ATOR1TAB21 PO; +DICY-61; -DICY10CA13; +ERGO500029 PO; -OXYB5TAB10; +OXYB5TAB11; +RANO500T2 PO; -ROPI1TAB3 PO; +ROPI1TAB73 PO; +ROPI1TAB86 PO; +VITA100093 PO; +ZONI100C67 PO
[2023-06-06] MEDS ORDERED: ISOVUE-370 76% 100ML VIAL As Ordered ONE (15:33)
[2023-06-06] MEDS ORDERED: AMPICILLIN SOD/SULBACTAM SOD 3 GM in D5W MINI-BAG PLUS 100 ML IV ONE (16:05)
[2023-06-06] MEDS ORDERED: AMOX875T2 PO (16:07)
[2023-06-06 17:20] VITALS: BP 151/93; TEMP 102; O2SAT 99
[2023-06-06] MEDS ORDERED: ACETAMINOPHEN 500 MG TAB PO ONE (17:20)
== END 2023-06-06 17:30 | disposition home or self-care (01) ==
LOC: M ED 13:52
DX: K02.9 Dental caries, unspecified (principal); L03.211 Cellulitis of face; I10 Essential (primary) hypertension; E78.5 Hyperlipidemia, unspecified; J45.909 Unspecified asthma, uncomplicated; G47.33 Obstructive sleep apnea (adult) (pediatric); G43.909 Migraine, unspecified, not intractable, without status migrainosus; Z91.030 Bee allergy status; Z79.2 Long term (current) use of antibiotics; Z79.02 Long term (current) use of antithrombotics/antiplatelets; Z79.52 Long term (current) use of systemic steroids; Z79.899 Other long term (current) drug therapy
CPT/HCPCS: 70491; 80047; 96365; 99283; J0295; Q9967

== ENCOUNTER → 2023-06-29 | Outpatient (CLI) | payer OTHER ==
[~2023-06-29] MED LIST changes: +AMOX875T2 PO
== END ==
LOC: M PAIN 16:30
PROVIDERS: ATTEND Nurse Practitioner Family
DX: M54.2 Cervicalgia (principal); Z79.891 Long term (current) use of opiate analgesic; M51.16 Intervertebral disc disorders with radiculopathy, lumbar region; G89.29 Other chronic pain; F43.10 Post-traumatic stress disorder, unspecified; F41.0 Panic disorder [episodic paroxysmal anxiety]; J45.909 Unspecified asthma, uncomplicated; H81.10 Benign paroxysmal vertigo, unspecified ear; G47.00 Insomnia, unspecified; N40.0 Benign prostatic hyperplasia without lower urinary tract symptoms; F32.A Depression, unspecified; K58.9 Irritable bowel syndrome, unspecified; G43.909 Migraine, unspecified, not intractable, without status migrainosus; G47.30 Sleep apnea, unspecified; E78.5 Hyperlipidemia, unspecified; E55.9 Vitamin D deficiency, unspecified; G25.81 Restless legs syndrome; Z79.82 Long term (current) use of aspirin; Z79.899 Other long term (current) drug therapy; Z91.030 Bee allergy status

== ENCOUNTER → 2023-07-20 | Outpatient (CLI) | payer OTHER | LOC: M RAD 16:05 | PROVIDERS: ATTEND Nurse Practitioner Family | DX: M51.16 Intervertebral disc disorders with radiculopathy, lumbar region (principal); M51.26 Other intervertebral disc displacement, lumbar region; M54.2 Cervicalgia ==

== ENCOUNTER 2023-08-29 08:56 | Emergency (ER) | payer OTHER ==
[~2023-08-29] VITALS: Ht 165.1 cm; Wt 104.2 kg
[2023-08-29 09:46] LABS: BASO % 0.4 % (0.0-1.0); EOS % 0.3 % (0.0-3.0); HEMATOCRIT 40.6 % (42.0-52.0); HEMOGLOBIN 14.1 g/dl (13.5-17.5); LYMPH # 1.1 10^3/uL (1.5-5.0); MEAN CORPUSCULAR HEMOGLOBIN 30.5 pg (27.0-33.0); MEAN CORPUSCULAR HGB CONC 34.7 g/dl (32.0-36.5); MEAN CORPUSCULAR VOLUME 87.7 fl (80.0-96.0); MONO # 0.4 10^3/uL (0.0-0.8); MONO % 4.6 % (2.0-8.0); NEUTROPHILS # 6.1 10^3/uL (1.5-8.5); NEUTROPHILS % 79.8 % (36.0-66.0); PLATELET COUNT, AUTOMATED 298 10^3/uL (150-450); RED BLOOD COUNT 4.63 10^6/uL (4.30-6.10); WHITE BLOOD COUNT 7.7 10^3/uL (4.0-10.0)
[2023-08-29 09:58] LABS: LIPASE 37 U/L (12-53)
[2023-08-29 10:00] LABS: ALBUMIN 3.8 G/DL (3.2-5.2); ALKALINE PHOSPHATASE 62 U/L (46-116); ALT/SGPT 42 U/L (7.0-40); AST/SGOT 21 U/L (<34); BILIRUBIN,DIRECT < 0.1 MG/DL (<0.4); BILIRUBIN,TOTAL 0.2 MG/DL (0.3-1.2); BLOOD UREA NITROGEN 25 MG/DL (9-23); CALCIUM LEVEL 9.5 MG/DL (8.5-10.1); CARBON DIOXIDE LEVEL 20 MMOL/L (20-31); CHLORIDE LEVEL 112 MMOL/L (98-107); CREATININE FOR GFR 1.14 MG/DL (0.70-1.30); GLOMERULAR FILTRATION RATE > 60.0 (>60); GLUCOSE, FASTING 194 MG/DL (60-100); POTASSIUM SERUM 4.7 MMOL/L (3.5-5.1); SODIUM LEVEL 139 MMOL/L (136-145); TOTAL PROTEIN 6.9 G/DL (5.7-8.2)
[2023-08-29] MEDS ORDERED: ONDANSETRON 4MG 2ML VIAL IV ONE (11:55)
[2023-08-29] MEDS ORDERED: NS 1,000 ML IV SCH (11:55)
[2023-08-29] MEDS ORDERED: MORPHINE 4 MG/ML 1ML VIAL IV ONE (11:55)
[2023-08-29] MEDS ORDERED: ISOVUE-370 76% 100ML VIAL As Ordered ONE (12:22)
[2023-08-29] MEDS ORDERED: PERC5TAB12 PO (14:05)
[2023-08-29 14:16] VITALS: BP 146/85
[2023-08-29] MEDS ORDERED: FLOM0.4C39 PO (14:27)
[2023-08-29 14:30] VITALS: TEMP 97.5; O2SAT 91
[2023-08-29] MEDS ORDERED: TAMSULOSIN 0.4 MG CAP PO ONE (14:30)
[2023-08-30] MEDS ORDERED: CLIN-250 (18:03)
[2023-08-30] MEDS ORDERED: OXYC1TAB23 (18:03)
[2023-08-30] MEDS ORDERED: TAMS1CAP17 (18:03)
[2023-08-30] MEDS ORDERED: DICY20TA20 (18:03)
[2023-08-30] MEDS ORDERED: ZOLM5TAB14 (18:03)
[2023-08-30] MEDS ORDERED: AMIODARONE HCL 360 MG/200 ML PREMIXED BAG (NEXTERONE) As Ordered ONE (21:46)
== END 2023-08-29 15:00 | disposition home or self-care (01) ==
LOC: M ED 08:56
DX: N20.1 Calculus of ureter (principal); R16.2 Hepatomegaly with splenomegaly, not elsewhere classified; R31.9 Hematuria, unspecified; F43.10 Post-traumatic stress disorder, unspecified; F41.9 Anxiety disorder, unspecified; J45.909 Unspecified asthma, uncomplicated; G43.909 Migraine, unspecified, not intractable, without status migrainosus; N20.2 Calculus of kidney with calculus of ureter; E78.5 Hyperlipidemia, unspecified; F32.A Depression, unspecified; Z91.030 Bee allergy status; Z79.1 Long term (current) use of non-steroidal anti-inflammatories (NSAID); Z79.899 Other long term (current) drug therapy
CPT/HCPCS: 74177; 80048; 80076; 81001; 83690; 85025; 93041; 96361; 96374; 96375; 99285; J2405; Q9967

== ENCOUNTER 2023-08-30 16:11 | Emergency (ER) | payer OTHER ==
[~2023-08-30] VITALS: Ht 167.6 cm; Wt 111.3 kg
[~2023-08-30 16:11] MED LIST changes: +PERC5TAB12 PO
[2023-08-30] MEDS ORDERED: AMIODARONE 150MG/3ML VIAL ONE (16:12)
[2023-08-30] MEDS ORDERED: ADENOSINE 6MG 2ML INJECTION As Ordered ONE ×2 (16:20→16:24)
[2023-08-30] MEDS ORDERED: MIDAZOLAM INJ 2MG/2ML VIAL As Ordered ONE (16:21)
[2023-08-30] MEDS ORDERED: MIDAZOLAM INJ 2MG/2ML VIAL IV ONE (16:40)
[2023-08-30] MEDS ORDERED: ADENOSINE 6MG 2ML INJECTION IV STA ×2 (16:40)
[2023-08-30] MEDS ORDERED: AMIODARONE HCL 150 MG in IV 1 EA IV STA (16:40)
[2023-08-30] MEDS ORDERED: NS 1,000 ML IV ONE ×3 (16:40→17:15)
[2023-08-30] MEDS ORDERED: LIDOCAINE 2% 5ML JELLY UROJET TOP ONE (16:40)
[2023-08-30] MEDS ORDERED: AMIODARONE HCL 360 MG/200 ML PREMIXED BAG (NEXTERONE) As Ordered ONE (16:47)
[2023-08-30 16:54] LABS: VENOUS BASE EXCESS -11.7 (-2.0-2.0); VENOUS HCO3 13.2 MMOL/L (23.0-27.0); VENOUS O2 SATURATION 88.6 % (60.0-80.0); VENOUS PARTIAL PRESSURE CO2 28.2 mmHg (38.0-50.0); VENOUS PARTIAL PRESSURE O2 56.2 mmHg (30.0-50.0); VENOUS PH 7.288 UNITS (7.330-7.430); VENOUS STANDARD HCO3 15.3 MMOL/L; VENOUS TOTAL CO2 14.1 MMOL/L (24.0-28.0)
[2023-08-30] MEDS ORDERED: LORazepam 2 MG/ML 1ML VIAL IV STA (16:54)
[2023-08-30 16:59] LABS: BASO % 0.6 % (0.0-1.0); EOS % 0.6 % (0.0-3.0); HEMATOCRIT 42.3 % (42.0-52.0); HEMOGLOBIN 14.5 g/dl (13.5-17.5); LYMPH # 1.6 10^3/uL (1.5-5.0); LYMPH % 32.4 % (24.0-44.0); MEAN CORPUSCULAR HEMOGLOBIN 30.6 pg (27.0-33.0); MEAN CORPUSCULAR HGB CONC 34.3 g/dl (32.0-36.5); MEAN CORPUSCULAR VOLUME 89.2 fl (80.0-96.0); MONO % 0.4 % (2.0-8.0); NEUTROPHILS # 3.2 10^3/uL (1.5-8.5); NEUTROPHILS % 64.4 % (36.0-66.0); PLATELET COUNT, AUTOMATED 216 10^3/uL (150-450); RED BLOOD COUNT 4.74 10^6/uL (4.30-6.10); WHITE BLOOD COUNT 4.9 10^3/uL (4.0-10.0)
[2023-08-30] MEDS ORDERED: AMIODARONE HCL 360 MG in IV 1 EA IV SCH ×2 (17:00→23:00)
[2023-08-30 17:10] LABS: INR 1.22
[2023-08-30 17:11] LABS: PARTIAL THROMBOPLASTIN TIME 27.8 SECONDS (24.8-34.2)
[2023-08-30] MEDS ORDERED: ACETAMINOPHEN *IV* 1,000 MG in IV 1 EA IV ONE ×2 (17:15→20:35)
[2023-08-30] MEDS ORDERED: VANCOMYCIN HCL 1,000 MG, VIAL MATE ADAPTER 1 EACH in D5W 250 ML IV SCH (17:15)
[2023-08-30] MEDS ORDERED: PIPERACILLIN/TAZOBACTAM SOD 4.5 GM in D5W MINI-BAG PLUS 50 ML IV ONE (17:15)
[2023-08-30 17:32] LABS: CK-MB VALUE MASS < 1.0 NG/ML (<3.6); ETHYL ALCOHOL (ETHANOL) < 0.003 % (0.000-0.010); LIPASE 41 U/L (12-53)
[2023-08-30 17:34] LABS: CPK CREATINE PHOSPHOKINASE 77 U/L (46-171); MB/CK RELATIVE INDEX 1.29 (< OR =4)
[2023-08-30 17:35] LABS: THYROID STIMULATING HORMONE 2.017 uIU/ML (0.55-4.78)
[2023-08-30 17:36] LABS: FREE T4 0.74 NG/DL (0.89-1.76)
[2023-08-30 17:43] LABS: ALBUMIN 3.6 G/DL (3.2-5.2); ALKALINE PHOSPHATASE 85 U/L (46-116); ALT/SGPT 53 U/L (7.0-40); AST/SGOT 45 U/L (<34); BILIRUBIN,DIRECT 0.2 MG/DL (<0.4); BILIRUBIN,TOTAL 0.4 MG/DL (0.3-1.2); BLOOD UREA NITROGEN 21 MG/DL (9-23); CALCIUM LEVEL 8.7 MG/DL (8.5-10.1); CARBON DIOXIDE LEVEL 16 MMOL/L (20-31); CHLORIDE LEVEL 111 MMOL/L (98-107); CREATININE FOR GFR 1.87 MG/DL (0.70-1.30); GLOMERULAR FILTRATION RATE 41.2 (>60); GLUCOSE, FASTING 158 MG/DL (60-100); MAGNESIUM LEVEL 1.5 MG/DL (1.8-2.4); POTASSIUM SERUM 3.2 MMOL/L (3.5-5.1); SODIUM LEVEL 140 MMOL/L (136-145); TOTAL PROTEIN 6.7 G/DL (5.7-8.2)
[2023-08-30] MEDS ORDERED: MAG SULF 1GM/100ML (MAG RUN) 1 GM in IV 1 EA IV ONE (17:45)
[2023-08-30] MEDS ORDERED: LACTULOSE 20GM/30ML SYRUP UDC PR ONE (17:50)
[2023-08-30 17:56] LABS: D-DIMER QUANT > 20.00 ug/mL (<0.5)
[2023-08-30] MEDS ORDERED: MIDAZOLAM INJ 2MG/2ML VIAL IV STA (18:02)
[2023-08-30] MEDS ORDERED: CLIN-250 (18:03)
[2023-08-30] MEDS ORDERED: OXYC1TAB23 (18:03)
[2023-08-30] MEDS ORDERED: DICY20TA20 (18:03)
[2023-08-30] MEDS ORDERED: TAMS1CAP17 (18:03)
[2023-08-30] MEDS ORDERED: ZOLM5TAB14 (18:03)
[2023-08-30 18:48] LABS: CK-MB VALUE MASS 2.8 NG/ML (<3.6); MB/CK RELATIVE INDEX 2.22 (< OR =4)
[2023-08-30] MEDS: KCL 10MEQ/100ML SWI (KRUN) 10 MEQ in IV 1 EA IV SCH ×3 (18:48→21:18)
[2023-08-30] MEDS ORDERED: VANCOMYCIN HCL 1,000 MG, VIAL MATE ADAPTER 1 EACH in D5W 250 ML IV ONE ×2 (19:30→20:30)
[2023-08-30 20:00] LABS: RSV AMPLIFICATION NEGATIVE (NEGATIVE)
[2023-08-30] MEDS ORDERED: KCL 20MEQ in NS 1000ML 1,000 ML IV SCH (20:35)
[2023-08-30 21:30] LABS: AMPHETAMINES LEVEL URINE NEGATIVE (NEGATIVE); BARBITURATES URINE NEGATIVE (NEGATIVE); BENZODIAZEPINES URINE POSITIVE (NEGATIVE); CANNABINOIDS URINE NEGATIVE (NEGATIVE); COCAINE METABOLITE URINE NEGATIVE (NEGATIVE); METHADONE URINE NEGATIVE (NEGATIVE); OPIATES URINE POSITIVE (NEGATIVE); PHENCYCLIDINE URINE NEGATIVE (NEGATIVE)
[2023-08-30 21:33] VITALS: BP 121/65; O2SAT 97
[2023-08-30 21:41] VITALS: TEMP 100.6
== END 2023-08-30 21:42 | disposition short-term general hospital (02) ==
LOC: M ED 16:11 → EDBD 16:11 → M ED 21:42
DX: I21.4 Non-ST elevation (NSTEMI) myocardial infarction (principal); R65.20 Severe sepsis without septic shock; I47.10 Supraventricular tachycardia, unspecified; N13.30 Unspecified hydronephrosis; I45.19 Other right bundle-branch block; F10.10 Alcohol abuse, uncomplicated; Z91.030 Bee allergy status; Z79.02 Long term (current) use of antithrombotics/antiplatelets; Z79.899 Other long term (current) drug therapy
CPT/HCPCS: 70450; 71045; 74176; 80048; 80076; 80307; 81001; 82077; 82140; 82550; 82553; 82803; 83605; 83690; 83735; 83880; 84439; 84443; 84484; 85025; 85379; 85610; 85730; 86140; 87040; 87077; 87088; 87186; 87631; 93005; 93041; 94760; 96365; 96366; 96375; 99285; J0131; J0153; J0282; J0283; J2060; J2250; J2543; J3370; J3475

== ENCOUNTER → 2023-10-11 | Outpatient (CLI) | payer OTHER ==
[~2023-10-11] MED LIST changes: +CLIN-250; +DICY20TA20; +HOLTER MONITOR XX; -OXYB5TAB11; +OXYB5TAB14; +OXYC1TAB23; +TAMS1CAP17; +ZOLM5TAB14
== END ==
LOC: M PAIN 17:30
PROVIDERS: ATTEND Nurse Practitioner Family
DX: M54.2 Cervicalgia (principal); M47.817 Spondylosis without myelopathy or radiculopathy, lumbosacral region; G89.29 Other chronic pain; F43.10 Post-traumatic stress disorder, unspecified; F41.0 Panic disorder [episodic paroxysmal anxiety]; J45.909 Unspecified asthma, uncomplicated; F32.A Depression, unspecified; G43.909 Migraine, unspecified, not intractable, without status migrainosus; E78.5 Hyperlipidemia, unspecified; E55.9 Vitamin D deficiency, unspecified; G25.81 Restless legs syndrome; N40.0 Benign prostatic hyperplasia without lower urinary tract symptoms; Z79.899 Other long term (current) drug therapy; Z79.82 Long term (current) use of aspirin; Z91.030 Bee allergy status

== ENCOUNTER 2023-10-12 17:32 | Emergency (ER) | payer OTHER ==
[~2023-10-12] VITALS: Ht 165.1 cm; Wt 100.4 kg
[~2023-10-12 17:32] MED LIST changes: -HOLTER MONITOR XX
[2023-10-12 18:24] LABS: BASO % 0.5 % (0.0-1.0); EOS # 0.2 10^3/uL (0.0-0.5); EOS % 2.3 % (0.0-3.0); HEMATOCRIT 37.8 % (42.0-52.0); LYMPH # 2.1 10^3/uL (1.5-5.0); LYMPH % 32.3 % (24.0-44.0); MEAN CORPUSCULAR HEMOGLOBIN 30.2 pg (27.0-33.0); MEAN CORPUSCULAR HGB CONC 34.4 g/dl (32.0-36.5); MEAN CORPUSCULAR VOLUME 87.7 fl (80.0-96.0); MONO # 0.6 10^3/uL (0.0-0.8); MONO % 9.1 % (2.0-8.0); NEUTROPHILS # 3.6 10^3/uL (1.5-8.5); NEUTROPHILS % 55.5 % (36.0-66.0); PLATELET COUNT, AUTOMATED 226 10^3/uL (150-450); RED BLOOD COUNT 4.31 10^6/uL (4.30-6.10); WHITE BLOOD COUNT 6.5 10^3/uL (4.0-10.0)
[2023-10-12 18:36] LABS: INR 1.07; PARTIAL THROMBOPLASTIN TIME 27.7 SECONDS (24.8-34.2); PROTHROMBIN TIME 13.6 SECONDS (12.5-14.5)
[2023-10-12 18:42] LABS: ERYTHROCYTE SEDIMENTATION RATE 3 mm/hr (0-15)
[2023-10-12 18:55] LABS: C REACTIVE PROTEIN QUANTITATIV < 0.40 MG/DL (<1.0); LIPASE 32 U/L (12-53)
[2023-10-12 18:56] LABS: CPK CREATINE PHOSPHOKINASE 146 U/L (46-171)
[2023-10-12 18:57] LABS: ALBUMIN 4.1 G/DL (3.2-5.2); ALKALINE PHOSPHATASE 47 U/L (46-116); ALT/SGPT 38 U/L (7.0-40); AST/SGOT 28 U/L (<34); BILIRUBIN,DIRECT 0.2 MG/DL (<0.4); BILIRUBIN,TOTAL 0.5 MG/DL (0.3-1.2); BLOOD UREA NITROGEN 17 MG/DL (9-23); CALCIUM LEVEL 8.9 MG/DL (8.5-10.1); CARBON DIOXIDE LEVEL 25 MMOL/L (20-31); CHLORIDE LEVEL 108 MMOL/L (98-107); CK-MB VALUE MASS 1.8 NG/ML (<3.6); CREATININE FOR GFR 1.43 MG/DL (0.70-1.30); GLOMERULAR FILTRATION RATE 56.2 (>60); GLUCOSE, FASTING 101 MG/DL (60-100); MB/CK RELATIVE INDEX 1.23 (< OR =4); POTASSIUM SERUM 4.1 MMOL/L (3.5-5.1); SODIUM LEVEL 138 MMOL/L (136-145); TOTAL PROTEIN 6.8 G/DL (5.7-8.2)
[2023-10-12 18:59] LABS: FREE T4 0.96 NG/DL (0.89-1.76); THYROID STIMULATING HORMONE 3.321 uIU/ML (0.55-4.78)
[2023-10-12 19:51] LABS: MAGNESIUM LEVEL 2.2 MG/DL (1.8-2.4)
[2023-10-12 20:54] LABS: CK-MB VALUE MASS 1.1 NG/ML (<3.6)
[2023-10-12 20:56] LABS: MB/CK RELATIVE INDEX 0.83 (< OR =4)
[2023-10-12] MEDS ORDERED: HOLTER MONITOR XX (21:17)
[2023-10-12 21:29] VITALS: TEMP 97.3; O2SAT 100
[2023-10-12 21:30] VITALS: BP 127/88
== END 2023-10-12 22:00 | disposition home or self-care (01) ==
LOC: M ED 17:32
DX: R00.2 Palpitations (principal); I25.2 Old myocardial infarction; I10 Essential (primary) hypertension; E78.5 Hyperlipidemia, unspecified; N40.0 Benign prostatic hyperplasia without lower urinary tract symptoms; K21.9 Gastro-esophageal reflux disease without esophagitis; F41.9 Anxiety disorder, unspecified; F32.9 Major depressive disorder, single episode, unspecified; Z79.899 Other long term (current) drug therapy; Z91.030 Bee allergy status

== ENCOUNTER → 2023-11-16 | Outpatient (REF) | payer OTHER ==
[~2023-11-16] MED LIST changes: +HOLTER MONITOR XX
[2023-11-16 18:10] LABS: APPEARANCE, URINE CLOUDY (CLEAR); BACTERIA, URINE AUTO NEGATIVE (NEGATIVE); BILIRUBIN, URINE AUTO NEGATIVE (NEGATIVE); BLOOD, URINE BLOOD NEGATIVE (NEGATIVE); COLOR, URINE AMBER (YELLOW); GLUCOSE, URINE (UA) AUTO NEGATIVE (NEGATIVE); KETONE, URINE AUTO NEGATIVE (NEGATIVE); LEUKOCYTE ESTERASE, URINE AUTO NEGATIVE (NEGATIVE); NITRITE, URINE AUTO NEGATIVE (NEGATIVE); PROTEIN, URINE AUTO NEGATIVE (NEGATIVE); RBC, URINE AUTO 0 /HPF (0-3); SPECIFIC GRAVITY URINE AUTO 1.016 (1.002-1.035); SQUAMOUS EPITHELIAL CELL UR AU 0 /HPF (0-6); UROBILINOGEN, URINE AUTO 0.2 mg/dL (0.0-2.0); WBC, URINE AUTO 1 /HPF (0-3)
== END ==
LOC: M LAB REF 16:56
PROVIDERS: ATTEND Urology
DX: R39.9 Unspecified symptoms and signs involving the genitourinary system (principal)

== ENCOUNTER → 2024-01-25 | Outpatient (CLI) | payer OTHER ==
[~2024-01-25] MED LIST changes: +ROPI1TA PO; -ROPI1TAB86 PO
== END ==
LOC: M PAIN 17:30
PROVIDERS: ATTEND Nurse Practitioner Family
DX: M54.2 Cervicalgia (principal); M47.817 Spondylosis without myelopathy or radiculopathy, lumbosacral region; G47.30 Sleep apnea, unspecified; Z79.1 Long term (current) use of non-steroidal anti-inflammatories (NSAID); Z79.2 Long term (current) use of antibiotics; Z79.890 Hormone replacement therapy; Z79.891 Long term (current) use of opiate analgesic; Z79.899 Other long term (current) drug therapy; Z91.030 Bee allergy status

== ENCOUNTER → 2024-05-04 | Outpatient (CLI) | payer OTHER ==
[2024-05-04 11:00] LABS: PSA SCREENING 0.33 NG/ML (< 4.00)
== END ==
LOC: M LAB 10:04
PROVIDERS: ATTEND Family Medicine
DX: E29.1 Testicular hypofunction (principal)

== ENCOUNTER → 2024-05-04 | Outpatient (CLI) | payer OTHER ==
[2024-05-04 10:36] LABS: BASO % 0.7 % (0.0-1.0); EOS # 0.1 10^3/uL (0.0-0.5); EOS % 1.6 % (0.0-3.0); HEMATOCRIT 41.9 % (42.0-52.0); HEMOGLOBIN 14.8 g/dl (13.5-17.5); LYMPH # 1.6 10^3/uL (1.5-5.0); LYMPH % 27.1 % (24.0-44.0); MEAN CORPUSCULAR HEMOGLOBIN 31.5 pg (27.0-33.0); MEAN CORPUSCULAR HGB CONC 35.3 g/dl (32.0-36.5); MEAN CORPUSCULAR VOLUME 89.1 fl (80.0-96.0); MONO # 0.6 10^3/uL (0.0-0.8); MONO % 10.7 % (2.0-8.0); NEUTROPHILS # 3.4 10^3/uL (1.5-8.5); NEUTROPHILS % 59.2 % (36.0-66.0); PLATELET COUNT, AUTOMATED 229 10^3/uL (150-450); WHITE BLOOD COUNT 5.7 10^3/uL (4.0-10.0)
[2024-05-04 11:02] LABS: ALBUMIN 3.8 G/DL (3.2-5.2); ALKALINE PHOSPHATASE 56 U/L (46-116); ALT/SGPT 33 U/L (7.0-40); AST/SGOT 15 U/L (<34); BILIRUBIN,TOTAL 0.4 MG/DL (0.3-1.2); BLOOD UREA NITROGEN 17 MG/DL (9-23); CALCIUM LEVEL 9.5 MG/DL (8.5-10.1); CARBON DIOXIDE LEVEL 22 MMOL/L (20-31); CHLORIDE LEVEL 113 MMOL/L (98-107); CHOLESTEROL LEVEL 185 MG/DL (<200); CHOLESTEROL RISK RATIO 3.39 (<5); CPK CREATINE PHOSPHOKINASE 80 U/L (46-171); CREATININE FOR GFR 1.09 MG/DL (0.70-1.30); GLOMERULAR FILTRATION RATE > 60.0 (>60); GLUCOSE, FASTING 93 MG/DL (60-100); HDL CHOLESTEROL 54.5 MG/DL (>40); LDL CHOLESTEROL 107.7 MG/DL (<100); NON-HDL-C 130.5 MG/DL; POTASSIUM SERUM 4.6 MMOL/L (3.5-5.1); SODIUM LEVEL 140 MMOL/L (136-145); TOTAL PROTEIN 6.9 G/DL (5.7-8.2); TRIGLYCERIDES LEVEL 114 MG/DL (<150)
[2024-05-04 11:05] LABS: THYROID STIMULATING HORMONE 1.004 uIU/ML (0.55-4.78)
[2024-05-06 07:38] LABS: LDL DIRECT 118 mg/dL (<100)
== END ==
LOC: M LAB 10:06
PROVIDERS: ATTEND Internal Medicine Cardiovascular Disease
DX: R94.31 Abnormal electrocardiogram [ECG] [EKG] (principal); R07.2 Precordial pain; R00.2 Palpitations; R06.02 Shortness of breath; I10 Essential (primary) hypertension; E78.2 Mixed hyperlipidemia; E66.9 Obesity, unspecified; E29.1 Testicular hypofunction
CPT/HCPCS: 36415; 80053; 80061; 82550; 83721; 84403; 84443; 85025; G0103

== ENCOUNTER → 2024-06-05 | Outpatient (CLI) | payer OTHER ==
[~2024-06-05] MED LIST changes: +META-10; -META1TAB22
== END ==
LOC: M PAIN 17:30
PROVIDERS: ATTEND Nurse Practitioner Family
DX: M51.16 Intervertebral disc disorders with radiculopathy, lumbar region (principal); Z79.891 Long term (current) use of opiate analgesic; G89.29 Other chronic pain; M54.2 Cervicalgia; M47.817 Spondylosis without myelopathy or radiculopathy, lumbosacral region; G47.30 Sleep apnea, unspecified; J45.909 Unspecified asthma, uncomplicated; N40.0 Benign prostatic hyperplasia without lower urinary tract symptoms; F32.A Depression, unspecified; F41.9 Anxiety disorder, unspecified; F43.10 Post-traumatic stress disorder, unspecified; E78.5 Hyperlipidemia, unspecified; E55.9 Vitamin D deficiency, unspecified; Z79.82 Long term (current) use of aspirin; Z79.899 Other long term (current) drug therapy; Z91.030 Bee allergy status

== ENCOUNTER → 2024-07-24 | Outpatient (CLI) | payer OTHER | LOC: M RAD 15:46 | PROVIDERS: ATTEND Nurse Practitioner Family | DX: M51.16 Intervertebral disc disorders with radiculopathy, lumbar region (principal); M51.26 Other intervertebral disc displacement, lumbar region; M99.63 Osseous and subluxation stenosis of intervertebral foramina of lumbar region ==

== ENCOUNTER → 2024-08-05 | Outpatient (CLI) | payer OTHER | LOC: M PAIN 16:30 | PROVIDERS: ATTEND Nurse Practitioner Family | DX: M51.16 Intervertebral disc disorders with radiculopathy, lumbar region (principal); Z79.891 Long term (current) use of opiate analgesic; G89.29 Other chronic pain; M54.2 Cervicalgia; E78.5 Hyperlipidemia, unspecified; E55.9 Vitamin D deficiency, unspecified; G25.81 Restless legs syndrome; F41.0 Panic disorder [episodic paroxysmal anxiety]; F32.A Depression, unspecified; J45.909 Unspecified asthma, uncomplicated; Z79.899 Other long term (current) drug therapy; Z91.030 Bee allergy status ==

== ENCOUNTER → 2025-05-24 | Outpatient (CLI) | payer OTHER ==
[~2025-05-24] MED LIST changes: -FLOM0.4C39 PO; +LIDO1ADH93 TOP; -LIDO5DIS41 TOP; +TAMS-18 PO
[2025-05-24 11:36] LABS: ALT/SGPT 21.0 U/L (7.0-40); AST/SGOT 17.0 U/L (<34); CALCIUM LEVEL 9.2 MG/DL (8.5-10.1); CARBON DIOXIDE LEVEL 24.0 MMOL/L (20-31); CHLORIDE LEVEL 111.0 MMOL/L (98-107); CHOLESTEROL LEVEL 176.0 MG/DL (<200); CHOLESTEROL RISK RATIO 3.71 (<5); CREATININE FOR GFR 1.29 MG/DL (0.70-1.30); GLOMERULAR FILTRATION RATE 68.0 (>60); LDL CHOLESTEROL 102.6 MG/DL (<100); MAGNESIUM LEVEL 2.1 MG/DL (1.8-2.4); NON-HDL-C 128.6 MG/DL; POTASSIUM SERUM 4.6 MMOL/L (3.5-5.1); PSA SCREENING 0.35 NG/ML (< 4.00); SODIUM LEVEL 145.0 MMOL/L (136-145); TRIGLYCERIDES LEVEL 130.0 MG/DL (<150)
[2025-05-24 11:38] LABS: TOTAL 25(OH) VITAMIN D 36.0 NG/ML (20.0-100.0)
== END ==
LOC: M LAB 10:30
PROVIDERS: ATTEND Family Medicine
DX: E55.9 Vitamin D deficiency, unspecified (principal); E78.5 Hyperlipidemia, unspecified; F90.9 Attention-deficit hyperactivity disorder, unspecified type; N40.0 Benign prostatic hyperplasia without lower urinary tract symptoms
CPT/HCPCS: 36415; 80053; 80061; 82306; 83735; 84443; G0103